=== PATIENT | female | born 1940 | race Caucasian/White ===

== ENCOUNTER 2024-05-05 14:45 | Observation (INO) | payer MEDICARE, BC, SELFPAY ==
[2024-05-05 14:48] VITALS: BP 138/91; PULSE 88; RESP 18; TEMP 36.1; O2SAT 95
--- OUTSIDE RECORDS SUMMARY | 2024-05-05 14:48 | XMS_ITS ---
Author Organization Unknown Address [address] [place] [address] Phone Care Team Providers Care [employer] Technology Manager Name Role Phone HIRA ROSARIO RN Registered Nurse Unavailable Unavailable Xwatchlist Unavailable NAIMA NICOLE Attending Unavailable JOSE G Aguilar [facility] Unavailable UNKNOWN Primary Unavailable Results TROPONIN HS QUANTITATIVE - C ollect Date/Time: 05/08/2022 04:04 [facility] H OS ID: [id number] [address], [place], [address] LOINC: Test Value Unit Reference Range Code Code System Flag TROPONIN HS 0.0098 ng/mL L=0.0000 H=0.0399 CMP - Collect Date/Time: 04:04 [facility] H OS ID: [id number] [address], [place], [address] LOINC: Test Value Unit Reference Range Code Code System Flag SODIUM 140 mmol/L L=137 H=145 POTASSIUM 3.5 mmol/L L=3.5 H=5.1 CHLORIDE 108 mmol/L L=98 H=107 H CO2 26 mmol/L L=22 H=30 ANION GAP 6 GLUCOSE 86 mg/dL L=74 H=100 BUN 15 mg/dL L=7 H=17 CREATININE 0.6100 mg/dL L=0.5200 H=1.0400 BUN/CREAT 25 TOTAL PROTEIN 6.3 g/dL L=6.3 H=8.2 ALBUMIN 3.9 g/dL L=3.5 H=5.0 GLOBULIN 2 g/dL L=2 H=5 L A/G RATIO 1.63 CALCIUM 8.6 mg/dL L=8.6 H=10.3 TOTAL BILI 0.4 mg/dL L=0.2 H=1.3 ALKALINE PHOS 43 U/L L=38 H=126 SGOT/AST 25 U/L L=14 H=36 SGPT/ALT 14 U/L L=0 H=35 AGE 81 yrs AFR AMER GFR 114 mL/min NON-AA GFR 94 mL/min CBC W/AUTO DIFF - Collect Da te/Time: 05/08/2022 04:04 [facility] H OS ID: [id number] [address], [place], [place], [address] LOINC: Test Value Unit Reference Range Code Code System Flag WBC 6.0 K/uL L=3.6 H=11.1 RBC 3.93 M/uL L=3.69 H=5.19 HEMOGLOBIN 13.4 g/dL L=11.4 H=14.4 HEMATOCRIT 38.7 % L=33.3 H=45.8 MCV 99 fL L=79 H=99 MCH 34.1 pg L=28.0 H=32.0 H MCHC 35 g/dL L=32 H=36 RDW 13.4 % L=11.5 H=14.5 PLATELETS 194 K/uL L=150 H=450 MPV 10.2 fL L=7.5 H=11.5 %NEUT 55 % L=35 H=75 %LYMPH 34 % L=15 H=49 %MONO 8 % L=3 H=14 %EOS 2 % L=0 H=5 %BASO 1 % L=0 H=1 #NEUT 3.3 K/uL L=2.0 H=8.0 #LYMPH 2.0 K/uL L=0.9 H=3.9 #MONO 0.5 K/uL L=0.1 H=2.0 #EOS 0.1 K/uL L=0.0 H=0.7 #BASO 0.0 K/uL L=0.0 H=0.2 MANUAL DIFF NOT INDICATED RBC MORPH NOT INDICATED SENT OUT ADDTNL TEST NO MAGNESIUM - Collect Date/Osmar e: 05/07/2022 13:26 [facility] H OS ID: [id number] [address], [place], [address] LOINC: Test Value Unit Reference Range Code Code System Flag MAGNESIUM 2.0 mg/dL L=1.6 H=2.3 PT/INR/PTT - Collect Date/Ti me: 05/07/2022 13:26 [facility] H OS ID: [id number] [address], [place], [address] LOINC: Test Value Unit Reference Range Code Code System Flag PROTIME 10.1 Secs L=9.0 H=11.2 INR 1.0 L=0.9 H=1.1 PTT 23.6 Secs L=22.0 H=30.0 TROPONIN HS QUANTITATIVE - C ollect Date/Time: 05/07/2022 13:26 [facility] H OS ID: [id number] [address], [place], [address] LOINC: Test Value Unit Reference Range Code Code System Flag TROPONIN HS 0.0074 ng/mL L=0.0000 H=0.0399 CBC W/AUTO DIFF - Collect Da te/Time: 05/07/2022 13:26 [facility] H OS ID: [id number] [address], [place], [address] LOINC: Test Value Unit Reference Range Code Code System Flag WBC 8.1 K/uL L=3.6 H=11.1 RBC 4.32 M/uL L=3.69 H=5.19 HEMOGLOBIN 14.6 g/dL L=11.4 H=14.4 H HEMATOCRIT 42.8 % L=33.3 H=45.8 MCV 99 fL L=79 H=99 MCH 33.8 pg L=28.0 H=32.0 H MCHC 34 g/dL L=32 H=36 RDW 13.3 % L=11.5 H=14.5 PLATELETS 217 K/uL L=150 H=450 MPV 10.4 fL L=7.5 H=11.5 %NEUT 79 % L=35 H=75 H %LYMPH 14 % L=15 H=49 L %MONO 6 % L=3 H=14 %EOS 0 % L=0 H=5 %BASO 0 % L=0 H=1 #NEUT 6.4 K/uL L=2.0 H=8.0 #LYMPH 1.1 K/uL L=0.9 H=3.9 #MONO 0.5 K/uL L=0.1 H=2.0 #EOS 0.0 K/uL L=0.0 H=0.7 #BASO 0.0 K/uL L=0.0 H=0.2 MANUAL DIFF NOT INDICATED RBC MORPH NOT INDICATED SENT OUT ADDTNL TEST NO CMP - Collect Date/Time: 13:26 [facility] OS ID: [id number] [address] , [place], [place], [address] LOINC: Test Value Unit Reference Range Code Code System Flag SODIUM 138 mmol/L L=137 H=145 POTASSIUM 4.0 mmol/L L=3.5 H=5.1 CHLORIDE 104 mmol/L L=98 H=107 CO2 27 mmol/L L=22 H=30 ANION GAP 7 GLUCOSE 95 mg/dL L=74 H=100 BUN 19 mg/dL L=7 H=17 H CREATININE 0.8000 mg/dL L=0.5200 H=1.0400 BUN/CREAT 24 TOTAL PROTEIN 7.4 g/dL L=6.3 H=8.2 ALBUMIN 4.6 g/dL L=3.5 H=5.0 GLOBULIN 3 g/dL L=2 H=5 A/G RATIO 1.64 CALCIUM 9.9 mg/dL L=8.6 H=10.3 TOTAL BILI 0.6 mg/dL L=0.2 H=1.3 ALKALINE PHOS 51 U/L L=38 H=126 SGOT/AST 27 U/L L=14 H=36 SGPT/ALT 15 U/L L=0 H=35 AGE 81 yrs AFR AMER GFR 83 mL/min NON-AA GFR 69 mL/min URINALYSIS W/REFLEX TO CULTU RE - Collect Date/Time: 05/07/2022 13:11 [facility] OS ID: [id number] [address] [place], [place], [address] LOINC: Test Value Unit Reference Range Code Code System Flag SOURCE CLEAN CATCH COLOR Yellow NORMAL: Straw CLARITY Slightly NORMAL: Clear GLUCOSE Negative NORMAL: Negative BILIRUBIN Negative NORMAL: Negative KETONE Trace NORMAL: Negative A SPEC GRAVITY 1.025 1.005 - 1.020 BLOOD Negative NORMAL: Negative pH 6.0 5.5 - 7.5 PROTEIN 30 NORMAL: Negative A UROBILINOGEN 0.2 0.2 - 1.0 mg/dL NITRITE Negative NORMAL: Negative LEUK EST Large NORMAL: Negative A MICROSCOPIC See Below WBC >50 NORMAL: <5 / HPF A RBC None Seen NORMAL: <2 / HPF EPITHELIAL 21 - 50 NORMAL: 1-5/ HPF BACTERIA FEW 1 - 5 NORMAL: NONE A CASTS None Seen CRYSTALS None Seen CULTURE? Sent Out CT HEAD WO CON - Completed: 05/07/2022 13:31 LOINC: \TM00\\12PI\\DRAo\\BM09\\PGN o\\MRB2\ \MRHo\ [facility] [address] [place] [address] ---------NAME--------- NUMBER SEX AGE ADMIT DISC. XRAY# F/C TYPE SUJEY FAGAN [id number] F 81 05/07/22 [id number] MB E/R DATE OF : 1940 M/R# [id number] PH#: [phone] ED-1 \MRHx\ LOCATION: TRANSCRIBED: 05/07/22 13:28 [place] [id number] COMPLETED:05/07/22 13:Feb {REASON FOR TEST: SYNCOPE PHYSICIAN: Emmanuel TORRES R A D I O L O G Y R E P O R T Radiation Dose CTDIVOL = 62.15 (mGy): DLP = 998.04 (mGy-cm) PROCEDURE INFORMATION: Exam: CT Head Without Contrast Exam date and time: 05/07/2022 1:28 PM Age: 81 years old Clinical indication: Injury or trauma; Fall; Concussion/head injury and unconscious; Consciousness not specified; Syncope and collapse; Additional info: Reason for test: Syncope TECHNIQUE: Imaging protocol: Computed tomography of the head without contrast. Radiation optimization: All CT scans at this facility use at least one of these dose optimization techniques: automated exposure control; mA and/or kV adjustment per patient size (includes targeted exams where dose is matched to clinical indication); or iterative reconstruction. COMPARISON: No relevant prior studies available. RADIATION DOSE METRICS: CTDI volume (mGy): 62.15 Total DLP (mGy-cm): 998.04 FINDINGS: Brain: No acute territorial infarct or intracranial hemorrhage. No mass effect or midline shift. Prominent right frontal encephalomalacia and volume loss is present. 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 Diffuse cerebral atrophy and advanced severe chronic small vessel ischemic change. Marked atherosclerotic calcification of the distal internal carotid and vertebral arteries. Cerebral ventricles: No ventriculomegaly. Paranasal sinuses: Visualized sinuses are unremarkable. No fluid levels. Mastoid air cells: Visualized mastoid air cells are well aerated. Bones/joints: No acute displaced fracture. Soft tissues: Mild left parietal scalp swelling and hematoma. IMPRESSION: No acute territorial infarct or intracranial hemorrhage detected. COMMENTS: If there is further clinical concern for intracranial pathology, MRI of the brain may be performed for further assessment. THIS DOCUMENT HAS BEEN ELECTRONICALLY SIGNED BY LUZ MARINA JARRETT MD ON 05/07/2022 14:44:27 \ITLo\ \UNDo\ \UNDx\ \ITLx\ XR CHEST 1V PORT - Completed : 05/07/2022 13:34 LOINC: \TM00\\12PI\\DRAo\\BM09\\PGN o\\MRB2\ \MRHo\ [facility] [address] [place] [address] ---------NAME--------- NUMBER SEX AGE ADMIT DISC. XRAY# F/C TYPE SUJEY FAGAN [id number] F 81 05/07/22 [id number] MB E/R DATE OF : 1940 M/R# [id number] PH#: [phone] ED-1 \MRHx\ LOCATION: TRANSCRIBED: 05/07/22 13:04 XR CHEST 1V PORT [id number] COMPLETED:05/07/22 13:Feb {REASON FOR CHEST: TRAUMA PHYSICIAN: Emmanuel TORRES R A D I O L O G Y R E P O R T PROCEDURE INFORMATION: Exam: XR Chest Exam date and time: 05/07/2022 1:04 PM Age: 81 years old Clinical indication: Injury or trauma; Other: Syncope/fall; Additional info: Reason for chest: Trauma TECHNIQUE: Imaging protocol: Radiologic exam of the chest. Views: 1 view. COMPARISON: No relevant prior studies available. FINDINGS: Lungs: The lungs are hyperexpanded and emphysematous. No gross consolidation. Pleural spaces: No significant pleural effusion. No significant pneumothorax. Heart/Mediastinum: Moderately enlarged cardiac silhouette. Vasculature is unremarkable. Tortuous atherosclerotic thoracic aorta. Bones/joints: No radiographically evident of displaced rib fracture. IMPRESSION: No acute cardiopulmonary process detected. THIS DOCUMENT HAS BEEN ELECTRONICALLY SIGNED BY LUZ MARINA JARRETT MD ON 05/07/2022 14:50:45 \ITLo\ \UNDo\ \UNDx\ \ITLx\ Social History Type Status Start Date End Date Code Code Syst em Smoking History Current every day smoker 01/31/[address] Sex Female Vital Signs Vital Sign Value Unit [place] Value [place] Unit Date/Time Recent/Initial? Code Code System Body Mass Index 18.02 kg/m2 05/07/2022 11:00 Initial 91545 -5 LOINC Systolic Blood Pressure 143 mm[Hg] 05/08/2022 12:54 Most Recent 8480- 6 LOINC Diastolic Blood Pressure 92 mm[Hg] 05/08/2022 12:54 Most Recent 8462- 4 LOINC Systolic Blood Pressure 138 mm[Hg] 05/07/2022 11:00 Initial 8480- 6 LOINC Diastolic Blood Pressure 87 mm[Hg] 05/07/2022 11:00 Initial 8462- 4 LOINC Body Surface Area 1.47 m2 05/07/2022 11:00 Initial 3140- 1 LOINC Height 162.560 0 cm 64.00 in 05/07/2022 11:00 Initial 8302- 2 LOINC O2 Saturation 96 % 2022 12:54 Most Recent 62644 -5 LOINC O2 Saturation 99 % 2022 11:00 Initial 61025 -5 LOINC Pulse 64.0 /min 05/08/2022 12:54 Most Recent 8867- 4 LOINC Pulse 68.0 /min 05/07/2022 11:00 Initial 8867- 4 LOINC Respiration 18 /min 05/08/19 12:54 Most Recent 9279- 1 LOINC Respiration 18 /min 05/07/19 11:00 Initial 9279- 1 LOINC Temperature 36.7 Latisha 98.0 F 05/08/19 12:54 Most Recent 8310- 5 LOINC Temperature 36.5 Latisha 97.7 F 05/07/19 11:00 Initial 8310- 5 LOINC Weight 47.63 kg 105.00 lbs 05/07/2022 11:00 Initial 17056 -7 [facility] Medications Medication Start Date End Date Route Frequency Dose Code Code System Medication Instructions Home Meds Acetaminophen 500MG Oral Capsule 05/08/2022 Unknown ORAL DAILY 1000 MILLIGRAMS 677103 RxNorm TAKE 1000 MILLIGRAMS ORAL DAILY Atorvastatin Calcium 20MG Oral Tablet 05/08/2022 Unknown ORAL AT BEDTIME 20 MILLIGRAMS 961298 RxNorm TAKE 20 MILLIGRAMS ORAL AT BEDTIME Cranberry 500MG Oral Capsule 05/08/2022 Unknown ORAL AT BEDTIME 500 MILLIGRAMS 6626404 RxNorm TAKE 500 MILLIGRAMS ORAL AT BEDTIME Docusate 100MG Oral Capsule, Liquid Filled 05/08/2022 Unknown ORAL TWICE A DAY 100 MILLIGRAMS 0207040 RxNorm TAKE 100 MILLIGRAMS ORAL TWICE A DAY Donepezil HCl 10MG Oral Tablet 05/08/2022 Unknown ORAL DAILY 10 MILLIGRAMS 600264 RxNorm TAKE 10 MILLIGRAMS ORAL DAILY Ibuprofen 200MG Oral Tablet 05/08/2022 Unknown ORAL AT BEDTIME 400 MILLIGRAMS 366276 RxNorm TAKE 400 MILLIGRAMS ORAL AT BEDTIME Lisinopril 10MG Oral Tablet 05/08/2022 Unknown ORAL DAILY 10 MILLIGRAMS 467550 RxNorm TAKE 10 MILLIGRAMS ORAL DAILY Mirtazapine 7.5MG Oral Tablet 05/08/2022 Unknown ORAL AT BEDTIME 7.5 MILLIGRAMS 036971 RxNorm TAKE 7.5 MILLIGRAMS ORAL AT BEDTIME Vitamin B12 1000MCG Oral Tablet 05/08/2022 Unknown ORAL DAILY 1000 MCG 951665 RxNorm TAKE 1000 MCG ORAL DAILY Vitamin C 1000MG Oral Tablet 05/08/2022 Unknown ORAL DAILY 1000 MILLIGRAMS 260803 RxNorm TAKE 1000 MILLIGRAMS ORAL DAILY Vitamin D3 10 MCG Oral Capsule, Liquid Filled 05/08/2022 Unknown ORAL DAILY 10 MCG RxNorm TAKE 10 MCG ORAL DAILY Cefuroxime 250MG Oral Tablet 05/08/2022 Unknown ORAL TWICE A DAY 2 TABLET 223159 RxNorm TAKE 2 TABLET ORAL TWICE A DAY Nitrofurantoin 100MG Oral Capsule 07/25/2022 Unknown ORAL EVERY 12 HOURS 1 CAPSULE 2216737 RxNorm TAKE 1 CAPSULE ORAL EVERY 12 HOURS Assessment You had the following problems:SYNCOPEUTICONTUSION OF HEAD, INITIAL ENCOUNTER Hospital Discharge Instructions Should you have any questions prior to discharge, please contact a member of your healthcare team. If you have left the hospital and have any questions, please contact your primary care physician. DIET:REGULAR DIET, Resume usual diet as tolerated. Prescriptions:Processed electronically, To pharmacy of choice: __. Discharge Diagnosis:UTI, Syncope Follow-Up Appointment:Primary Care Provider, establish appointment with urology/nephrology Post Discharge Equipment:Home oxygen, own cane General Activity:Up and about as tolerated. Lifting/Weight-Bearing:May lift as tolerated. Bathing:May shower. Sexual Activity:As tolerated. Notify Physician:Pain unrelieved by medication, Nausea and/or vomiting.Adverse reaction to medication, Questions/Uncertainty. Education:Diagnosis-related material: __, Given to and reviewed with patient.Given to and reviewed with family, Questions invited.Ques. answered to patient satisfaction, Understanding verbalized. Patient's Belongings:Cell phone: __, Purse: __, Clothing: __. Health Accessories:Dentures: upper plate, Dentures: lower plate, Glasses. Medical Equipment:cane Discharge Destination:Home with family/ spouse Mode of Departure:Wheelchair. Accompanied By:Spouse/Significant other. Departure Date:05/08/22 Pain Control Status/Pain Management:Adequate pain control. Departure Time:12:56 Reason For Referral No Data Found Problems Problem Start Date Resolved Date Status Code Code System SYNCOPE active 823424074 SNOMED-CT UTI active 87564471 SNOMED-CT CONTUSION OF HEAD, INITIAL ENCOUNTER active 587774672 SNOMED-CT HYPERTENSION 05/07/2022 resolved 97065123 SNOMED -CT URINARY TRACT INFECTION 05/07/2022 resolved 43903 005 SNOMED-CT Allergies and Adverse Reactions Allergy Substance Reaction Severity Start Date Concern Status Co de Code System No Known Drug Allergies Active 069459945 SNOMED-CT Plan of Treatment Plan Discharge home Referral to Urology & PCP local to [place] [facility] for Cefuroxime for further treatment Tylenol/Acetaminophen as needed for headache Urine culture pending Continue home meds Normal diet Return for any new or worsening symptoms Medications given this visit: Ordered & Completed Meds Table Ordered Medication Start Date/Time Dosage Route Frequency Status CEFTRIAXONE 1GM INJ 05/07/2022 13:49 1 GM IV PUSH X1 completed SODIUM CHLORIDE 0.9% 500ML IV SOLN 05/07/2022 13:50 INTRAVENOUS X1 completed ONDANSETRON ODT 4MG TAB 05/07/2022 14:20 4 MG ORAL PRN Q6H active ACETAMINOPHEN 325MG TAB 05/07/2022 14:20 650 MG ORAL PRN Q6H active NS 1,000 ML IV SOLN 05/07/2022 14:20 75 ml/hr INTRAVENOUS CONTINUOUS active CEFTRIAXONE 1GM INJ 05/08/2022 09:00 1 GM IV PUSH Q12HR active LISINOPRIL 10MG TAB 05/07/2022 19:07 10 MG ORAL DAILY completed DONEPEZIL HCL 5MG TAB 05/07/2022 19:07 10 MG ORAL DAILY active DOCUSATE SODIUM 100MG CAP 05/07/2022 19:07 100 MG ORAL BID active MIRTAZAPINE 15MG TAB 05/07/2022 19:07 7.5 MG ORAL Q24H active ATORVASTATIN 10MG TAB 05/07/2022 19:07 20 MG ORAL BEDTIME active LISINOPRIL 10MG TAB 05/08/2022 08:00 10 MG ORAL DAILY active Discharge Medications: Discharge Medications Acetaminophen 500MG Oral Capsule Atorvastatin Calcium 20MG Oral Tablet Cranberry 500MG Oral Capsule Docusate 100MG Oral Capsule, Liquid Filled Donepezil HCl 10MG Oral Tablet Ibuprofen 200MG Oral Tablet Lisinopril 10MG Oral Tablet Mirtazapine 7.5MG Oral Tablet Vitamin B12 1000MCG Oral Tablet Vitamin C 1000MG Oral Tablet Vitamin D3 10 MCG Oral Capsule, Liquid Filled Cefuroxime 250MG Oral Tablet Personal Care Team Section Performer Name Performer Role Active Date Inactive Da te Discharge Summary Notes [facility] OS 05/08/2022 12:39 All Demographics Patient Name Age Sex Visit Number Admission Date/Time Attending Physician Date of Service Room and Bed Emergency Contact GRACIA RM 1940 81 years Female [id number] 05/07/2022 14:50 EDWARD Bahman [place] 05/07/2022 5 AMRIT RM - [id number] 05/08/2022 12:34 Discharge Date: 05/08/22 Reason for Admission: UTI, syncope Final Diagnosis: UTI Problem List Syncope UTI Contusion of head, initial encounter Attending Physician: Dr. Jalen Dumont Primary Care Physician: Primary Care Physician: UNKNOWN History of Present Illness This patient is an 81 year old female who presented to the ED post syncopal episode. Patient has a history of asymptomatic UTIs that manifest as syncopal episodes, last one was 2 months ago while in [place], patient's home. Patient has been unable to see a urologist. She currently is asymptomatic, requesting to go home. Denies any headache, weakness, blurred vision, dizziness, chest pain, dyspnea, nausea, vomiting. Hospital Course CT head - unremarkable for acute findings Labs - leukocytes & WBCs on UA, otherwise unremarkable Pt given IV rocephin, fluids, and normal diet Patient repeat labs in the AM unremarkable, patient afebrile, nontoxic appearing with normal vitals other than slightly elevated BP Stable for DC at this time Lab Results: This Visit Test Results Units Reference Range Ordered Collected Status WBC 6 K/uL L=3.6 H=11.1 05/08/2022 00:00 05/08/2022 04:04 final RBC 3.93 M/uL L=3.69 H=5.19 05/08/2022 00:00 05/08/2022 04:04 final HEMOGLOBIN 13.4 g/dL L=11.4 H=14.4 05/08/2022 00:00 05/08/2022 04:04 final HEMATOCRIT 38.7 % L=33.3 H=45.8 05/08/2022 00:00 05/08/2022 04:04 final MCV 99 fL L=79 H=99 05/08/2022 00:00 05/08/2022 04:04 final MCH 34.1 H pg L=28.0 H=32.0 05/08/2022 00:00 05/08/2022 04:04 final MCHC 35 g/dL L=32 H=36 05/08/2022 00:00 05/08/2022 04:04 final RDW 13.4 % L=11.5 H=14.5 05/08/2022 00:00 05/08/2022 04:04 final PLATELETS 194 K/uL L=150 H=450 05/08/2022 00:00 05/08/2022 04:04 final MPV 10.2 fL L=7.5 H=11.5 05/08/2022 00:00 05/08/2022 04:04 final %NEUT 55 % L=35 H=75 05/08/2022 00:00 05/08/2022 04:04 final %LYMPH 34 % L=15 H=49 05/08/2022 00:00 05/08/2022 04:04 final %MONO 8 % L=3 H=14 05/08/2022 00:00 05/08/2022 04:04 final %EOS 2 % L=0 H=5 05/08/2022 00:00 05/08/2022 04:04 final %BASO 1 % L=0 H=1 05/08/2022 00:00 05/08/2022 04:04 final #NEUT 3.3 K/uL L=2.0 H=8.0 05/08/2022 00:00 05/08/2022 04:04 final #LYMPH 2 K/uL L=0.9 H=3.9 05/08/2022 00:00 05/08/2022 04:04 final #MONO 0.5 K/uL L=0.1 H=2.0 05/08/2022 00:00 05/08/2022 04:04 final #EOS 0.1 K/uL L=0.0 H=0.7 05/08/2022 00:00 05/08/2022 04:04 final #BASO 0 K/uL L=0.0 H=0.2 05/08/2022 00:00 05/08/2022 04:04 final MANUAL DIFF NOT INDICATED 05/08/2022 00:00 05/08/2022 04:04 final RBC MORPH NOT INDICATED 05/08/2022 00:00 05/08/2022 04:04 final SENT OUT ADDTNL TEST NO 05/08/2022 00:00 05/08/2022 04:04 final SODIUM 140 mmol/L L=137 H=145 05/08/2022 00:00 05/08/2022 04:04 final POTASSIUM 3.5 mmol/L L=3.5 H=5.1 05/08/2022 00:00 05/08/2022 04:04 final CHLORIDE 108 H mmol/L L=98 H=107 05/08/2022 00:00 05/08/2022 04:04 final CO2 26 mmol/L L=22 H=30 05/08/2022 00:00 05/08/2022 04:04 final ANION GAP 6 05/08/2022 00:00 05/08/2022 04:04 final GLUCOSE 86 mg/dL L=74 H=100 05/08/2022 00:00 05/08/2022 04:04 final BUN 15 mg/dL L=7 H=17 05/08/2022 00:00 05/08/2022 04:04 final CREATININE 0.61 mg/dL L=0.5200 H=1.0400 05/08/2022 00:00 05/08/2022 04:04 final BUN/CREAT 25 05/08/2022 00:00 05/08/2022 04:04 final TOTAL PROTEIN 6.3 g/dL L=6.3 H=8.2 05/08/2022 00:00 05/08/2022 04:04 final ALBUMIN 3.9 g/dL L=3.5 H=5.0 05/08/2022 00:00 05/08/2022 04:04 final GLOBULIN 2 L g/dL L=2 H=5 05/08/2022 00:00 05/08/2022 04:04 final A/G RATIO 1.63 05/08/2022 00:00 05/08/2022 04:04 final CALCIUM 8.6 mg/dL L=8.6 H=10.3 05/08/2022 00:00 05/08/2022 04:04 final TOTAL BILI 0.4 mg/dL L=0.2 H=1.3 05/08/2022 00:00 05/08/2022 04:04 final ALKALINE PHOS 43 U/L L=38 H=126 05/08/2022 00:00 05/08/2022 04:04 final SGOT/AST 25 U/L L=14 H=36 05/08/2022 00:00 05/08/2022 04:04 final SGPT/ALT 14 U/L L=0 H=35 05/08/2022 00:00 05/08/2022 04:04 final AGE 81 yrs 05/08/2022 00:00 05/08/2022 04:04 final AFR AMER GFR 114 mL/min 05/08/2022 00:00 05/08/2022 04:04 final NON-AA GFR 94 mL/min 05/08/2022 00:00 05/08/2022 04:04 final TROPONIN HS 0.0098 ng/mL L=0.0000 H=0.0399 05/08/2022 00:00 05/08/2022 04:04 final WBC 8.1 K/uL L=3.6 H=11.1 05/07/2022 12:52 05/07/2022 13:26 final RBC 4.32 M/uL L=3.69 H=5.19 05/07/2022 12:52 05/07/2022 13:26 final HEMOGLOBIN 14.6 H g/dL L=11.4 H=14.4 05/07/2022 12:52 05/07/2022 13:26 final HEMATOCRIT 42.8 % L=33.3 H=45.8 05/07/2022 12:52 05/07/2022 13:26 final MCV 99 fL L=79 H=99 05/07/2022 12:52 05/07/2022 13:26 final MCH 33.8 H pg L=28.0 H=32.0 05/07/2022 12:52 05/07/2022 13:26 final MCHC 34 g/dL L=32 H=36 05/07/2022 12:52 05/07/2022 13:26 final RDW 13.3 % L=11.5 H=14.5 05/07/2022 12:52 05/07/2022 13:26 final PLATELETS 217 K/uL L=150 H=450 05/07/2022 12:52 05/07/2022 13:26 final MPV 10.4 fL L=7.5 H=11.5 05/07/2022 12:52 05/07/2022 13:26 final %NEUT 79 H % L=35 H=75 05/07/2022 12:52 05/07/2022 13:26 final %LYMPH 14 L % L=15 H=49 05/07/2022 12:52 05/07/2022 13:26 final %MONO 6 % L=3 H=14 05/07/2022 12:52 05/07/2022 13:26 final %EOS 0 % L=0 H=5 05/07/2022 12:52 05/07/2022 13:26 final %BASO 0 % L=0 H=1 05/07/2022 12:52 05/07/2022 13:26 final #NEUT 6.4 K/uL L=2.0 H=8.0 05/07/2022 12:52 05/07/2022 13:26 final #LYMPH 1.1 K/uL L=0.9 H=3.9 05/07/2022 12:52 05/07/2022 13:26 final #MONO 0.5 K/uL L=0.1 H=2.0 05/07/2022 12:52 05/07/2022 13:26 final #EOS 0 K/uL L=0.0 H=0.7 05/07/2022 12:52 05/07/2022 13:26 final #BASO 0 K/uL L=0.0 H=0.2 05/07/2022 12:52 05/07/2022 13:26 final MANUAL DIFF NOT INDICATED 05/07/2022 12:52 05/07/2022 13:26 final RBC MORPH NOT INDICATED 05/07/2022 12:52 05/07/2022 13:26 final SENT OUT ADDTNL TEST NO 05/07/2022 12:52 05/07/2022 13:26 final SODIUM 138 mmol/L L=137 H=145 05/07/2022 12:52 05/07/2022 13:26 final POTASSIUM 4 mmol/L L=3.5 H=5.1 05/07/2022 12:52 05/07/2022 13:26 final CHLORIDE 104 mmol/L L=98 H=107 05/07/2022 12:52 05/07/2022 13:26 final CO2 27 mmol/L L=22 H=30 05/07/2022 12:52 05/07/2022 13:26 final ANION GAP 7 05/07/2022 12:52 05/07/2022 13:26 final GLUCOSE 95 mg/dL L=74 H=100 05/07/2022 12:52 05/07/2022 13:26 final BUN 19 H mg/dL L=7 H=17 05/07/2022 12:52 05/07/2022 13:26 final CREATININE 0.8 mg/dL L=0.5200 H=1.0400 05/07/2022 12:52 05/07/2022 13:26 final BUN/CREAT 24 05/07/2022 12:52 05/07/2022 13:26 final TOTAL PROTEIN 7.4 g/dL L=6.3 H=8.2 05/07/2022 12:52 05/07/2022 13:26 final ALBUMIN 4.6 g/dL L=3.5 H=5.0 05/07/2022 12:52 05/07/2022 13:26 final GLOBULIN 3 g/dL L=2 H=5 05/07/2022 12:52 05/07/2022 13:26 final A/G RATIO 1.64 05/07/2022 12:52 05/07/2022 13:26 final CALCIUM 9.9 mg/dL L=8.6 H=10.3 05/07/2022 12:52 05/07/2022 13:26 final TOTAL BILI 0.6 mg/dL L=0.2 H=1.3 05/07/2022 12:52 05/07/2022 13:26 final ALKALINE PHOS 51 U/L L=38 H=126 05/07/2022 12:52 05/07/2022 13:26 final SGOT/AST 27 U/L L=14 H=36 05/07/2022 12:52 05/07/2022 13:26 final SGPT/ALT 15 U/L L=0 H=35 05/07/2022 12:52 05/07/2022 13:26 final AGE 81 yrs 05/07/2022 12:52 05/07/2022 13:26 final AFR AMER GFR 83 mL/min 05/07/2022 12:52 05/07/2022 13:26 final NON-AA GFR 69 mL/min 05/07/2022 12:52 05/07/2022 13:26 final MAGNESIUM 2 mg/dL L=1.6 H=2.3 05/07/2022 12:52 05/07/2022 13:26 final PROTIME 10.1 Secs L=9.0 H=11.2 05/07/2022 12:52 05/07/2022 13:26 final INR 1 L=0.9 H=1.1 05/07/2022 12:52 05/07/2022 13:26 final PTT 23.6 Secs L=22.0 H=30.0 05/07/2022 12:52 05/07/2022 13:26 final TROPONIN HS 0.0074 ng/mL L=0.0000 H=0.0399 05/07/2022 12:52 05/07/2022 13:26 final CULTURE, URINE (SEND OUT) 05/07/2022 12:52 05/07/2022 13:11 registered SOURCE CLEAN CATCH 05/07/2022 12:52 05/07/2022 13:11 final COLOR Yellow NORMAL: Straw 05/07/2022 12:52 05/07/2022 13:11 final CLARITY Slightly NORMAL: Clear 05/07/2022 12:52 05/07/2022 13:11 final GLUCOSE Negative NORMAL: Negative 05/07/2022 12:52 05/07/2022 13:11 final BILIRUBIN Negative NORMAL: Negative 05/07/2022 12:52 05/07/2022 13:11 final KETONE Trace A NORMAL: Negative 05/07/2022 12:52 05/07/2022 13:11 final SPEC GRAVITY 1.025 1.005 - 1.020 05/07/2022 12:52 05/07/2022 13:11 final BLOOD Negative NORMAL: Negative 05/07/2022 12:52 05/07/2022 13:11 final pH 6.0 5.5 - 7.5 05/07/2022 12:52 05/07/2022 13:11 final PROTEIN 30 A NORMAL: Negative 05/07/2022 12:52 05/07/2022 13:11 final UROBILINOGEN 0.2 0.2 - 1.0 mg/dL 05/07/2022 12:52 05/07/2022 13:11 final NITRITE Negative NORMAL: Negative 05/07/2022 12:52 05/07/2022 13:11 final LEUK EST Large A NORMAL: Negative 05/07/2022 12:52 05/07/2022 13:11 final MICROSCOPIC See Below 05/07/2022 12:52 05/07/2022 13:11 final WBC >50 A NORMAL: <5 / HPF 05/07/2022 12:52 05/07/2022 13:11 final RBC None Seen NORMAL: <2 / HPF 05/07/2022 12:52 05/07/2022 13:11 final EPITHELIAL 21 - 50 NORMAL: 1-5/ HPF 05/07/2022 12:52 05/07/2022 13:11 final BACTERIA FEW 1 - 5 A NORMAL: NONE 05/07/2022 12:52 05/07/2022 13:11 final CASTS None Seen 05/07/2022 12:52 05/07/2022 13:11 final CRYSTALS None Seen 05/07/2022 12:52 05/07/2022 13:11 final CULTURE? Sent Out 05/07/2022 12:52 05/07/2022 13:11 final Assessment Problem List Syncope UTI Contusion of head, initial encounter Plan Discharge home Referral to Urology & PCP local to [place] Prescription for Cefuroxime for further treatment Tylenol/Acetaminophen as needed for headache Urine culture pending Continue home meds Normal diet Return for any new or worsening symptoms Medications given this visit: Ordered & Completed Meds Table Ordered Medication Start Date/Time Dosage Route Frequency Status CEFTRIAXONE 1GM INJ 05/07/2022 13:49 1 GM IV PUSH X1 completed SODIUM CHLORIDE 0.9% 500ML IV SOLN 05/07/2022 13:50 INTRAVENOUS X1 completed ONDANSETRON ODT 4MG TAB 05/07/2022 14:20 4 MG ORAL PRN Q6H active ACETAMINOPHEN 325MG TAB 05/07/2022 14:20 650 MG ORAL PRN Q6H active NS 1,000 ML IV SOLN 05/07/2022 14:20 75 ml/hr INTRAVENOUS CONTINUOUS active CEFTRIAXONE 1GM INJ 05/08/2022 09:00 1 GM IV PUSH Q12HR active LISINOPRIL 10MG TAB 05/07/2022 19:07 10 MG ORAL DAILY completed DONEPEZIL HCL 5MG TAB 05/07/2022 19:07 10 MG ORAL DAILY active DOCUSATE SODIUM 100MG CAP 05/07/2022 19:07 100 MG ORAL BID active MIRTAZAPINE 15MG TAB 05/07/2022 19:07 7.5 MG ORAL Q24H active ATORVASTATIN 10MG TAB 05/07/2022 19:07 20 MG ORAL BEDTIME active LISINOPRIL 10MG TAB 05/08/2022 08:00 10 MG ORAL DAILY active Discharge Medications: Discharge Medications Acetaminophen 500MG Oral Capsule Atorvastatin Calcium 20MG Oral Tablet Cranberry 500MG Oral Capsule Docusate 100MG Oral Capsule, Liquid Filled Donepezil HCl 10MG Oral Tablet Ibuprofen 200MG Oral Tablet Lisinopril 10MG Oral Tablet Mirtazapine 7.5MG Oral Tablet Vitamin B12 1000MCG Oral Tablet Vitamin C 1000MG Oral Tablet Vitamin D3 10 MCG Oral Capsule, Liquid Filled Cefuroxime 250MG Oral Tablet History and Physical Notes [facility] OS 05/07/2022 14:29 All Demographics Patient Name Age Sex Visit Number Admission Date/Time Attending Physician Date of Service Room and Bed Emergency Contact GRACIA RM 1940 81 years Female [id number] 05/07/2022 10:55 BONNIE MCNAMARA 05/07/2022 ED-1 AMRIT RM - [id number] 05/07/2022 14:25 Admission Date: Date of Service: 05/07/2022 Reason for Admission: Chief Complaint: FALL Code Status: full Attending Physician: Dr. JR Dumont Primary Care Physician: Primary Care Physician: UNKNOWN Referring Physician: Consulting Physician(s): History of Present Illness Chief Complaint: Chief Complaint: FALL patient was seen in the ED and admitted for observation due to her syncopal episode and head contusion and UTI Chief Complaint: Syncope patient is 81-year-old female who presents to the emergency department after a syncopal episode. She is here with her who states that he was making the bed and she went into the bathroom and he suddenly heard her fall. Patient remembers going to the bathroom and then walking over to the sink to wash her hands and next thing she knew her was helping her sit up from the floor. Her states that he went straight into the bathroom when he heard her fall and she was only passed out for a couple of seconds and then woke up. She had a sore spot on the back of her head and he gave her 200 mg of ibuprofen. She denies any history of syncopal episodes. She does not remember actually passing out. She states she has a sore spot still but no severe headache. She denies any change in vision, nausea or vomiting. She is not been sick recently with any fevers, chills, or URI symptoms. She denies any chest pains or shortness of breath. She denies any nausea, vomiting, or diarrhea. She states she is had chronic fatigue and some leg weakness for years but nothing out of her normal today. She denies any focal weakness or paresthesias. She denies any loss of sensation or movement. She denies any tobacco, alcohol, or recreational drug use Past Medical/Surgical/Family/Social History Past Medical History: All Problems Problem ICD Code Onset Date Resolved Date Age Status Comment Hypertension I10 05/07/2022 Historic Syncope R55 Active UTI N39.0 Active Contusion of head, initial encounter S00.93XA Active Past Surgical History: Surgery List: No Surgical History Available Past Family History: Family History List: No Family History Available Past Social History: lives with her . No tobacco, alcohol, or recreational drug use Smoking Status: Smoking Status List: No Social History Available Allergies: Allergy List No Known Drug Allergies, medication Current Medications: Home Meds: Dose and Freq: No Home Medications Available Review of Systems Pertinent Positives: syncopal episode and hit the back of her head Pertinent Negatives: nausea, vomiting, confusion, focal weakness, chest pain, shortness of breath, fever or chills Physical Exam Most Recent Vital Signs BP (mm/Hg) BP Position/Site Heart Rate Resp Temp (C) Temp (F) SPO2% O2 Device Pain Score Height (cm) Height (in) Weight (kg) Weight (lbs/ozs) 164/66 67 18 36.5 Temporal Scanning 97.7 Temporal Scanning 99 % 4 162.6 cm 64 in 47.63 kg 105 lbs GENERAL: elderly and frail. Very thin. In no apparent distress. SKIN: No rashes. No jaundice. [place] and warm with good turgor. No petechia, bulla or ecchymosis. HEAD: Normocephalic, atraumatic, with no visible or palpable masses, depressions, or scarring. posterior left scalp with a tender hematoma. No open wound or active bleeding. No deformity or crepitus EYES: Pupils are equal, round and reactive to light. Extraocular muscles are intact. Sclerae are white without injection or icterus. EARS: The ear canals are patent without edema, exudate or drainage. Tympanic membranes are intact. No bulging or erythema. Hearing is grossly intact. NOSE: No external lesions. Nasal mucosa pink and non-inflamed. MOUTH/THROAT: No swelling or abnormality to the lip or teeth. Oral mucosa is pink and moist. No swelling to the palate or pharynx. Uvula is midline. The pharynx is without exudate or erythema. No edema is seen of the tonsils. The airway is completely patent. The voice is normal. No stridor is heard. NECK: Supple, without lesions, bruits, or adenopathy. No JVD is seen. Thyroid is non-enlarged and non-tender. Trachea is midline. CHEST/LUNGS: Symmetrical with equal breath sounds. Clear to auscultation bilaterally. No rales, rhonchi or wheezes are appreciated. Good air movement is auscultated in all 4 lung kent. There is no tenderness on palpation of the chest. HEART: Regular rate and rhythm. No murmurs, rubs or gallop. No S3, S4 or rub is auscultated. ABDOMEN: Soft, non-tender and non-distended. Normal bowel sounds. No hepatosplenomegaly or hernias or masses noted. No guarding, rigidity or rebound tenderness. MUSCULOSKELETAL: Normal gait and station. No misalignment, asymmetry, crepitation, defects, tenderness, masses, effusions, decreased range of motion, instability, atrophy or abnormal strength or tone EXTREMITIES: Peripheral pulses are intact. All joints are stable without laxity. There is good range of motion of all joints without tenderness or discomfort NEUROLOGIC: Cranial nerves II through XII are grossly intact. Muscle strength is graded 5/5 in the upper and lower extremities bilaterally. Deep tendon reflexes are symmetrical in the upper and lower extremities bilaterally. Sensation to pain, touch, and proprioception are normal. PSYCHIATRIC: The patient is oriented x4. Mood and affect are appropriate. Pre-Admission Studies: Lab Results: Last Week Test Results Units Reference Range Ordered Collected Status WBC 8.1 K/uL L=3.6 H=11.1 05/07/2022 12:52 05/07/2022 13:26 final RBC 4.32 M/uL L=3.69 H=5.19 05/07/2022 12:52 05/07/2022 13:26 final HEMOGLOBIN 14.6 H g/dL L=11.4 H=14.4 05/07/2022 12:52 05/07/2022 13:26 final HEMATOCRIT 42.8 % L=33.3 H=45.8 05/07/2022 12:52 05/07/2022 13:26 final MCV 99 fL L=79 H=99 05/07/2022 12:52 05/07/2022 13:26 final MCH 33.8 H pg L=28.0 H=32.0 05/07/2022 12:52 05/07/2022 13:26 final MCHC 34 g/dL L=32 H=36 05/07/2022 12:52 05/07/2022 13:26 final RDW 13.3 % L=11.5 H=14.5 05/07/2022 12:52 05/07/2022 13:26 final PLATELETS 217 K/uL L=150 H=450 05/07/2022 12:52 05/07/2022 13:26 final MPV 10.4 fL L=7.5 H=11.5 05/07/2022 12:52 05/07/2022 13:26 final %NEUT 79 H % L=35 H=75 05/07/2022 12:52 05/07/2022 13:26 final %LYMPH 14 L % L=15 H=49 05/07/2022 12:52 05/07/2022 13:26 final %MONO 6 % L=3 H=14 05/07/2022 12:52 05/07/2022 13:26 final %EOS 0 % L=0 H=5 05/07/2022 12:52 05/07/2022 13:26 final %BASO 0 % L=0 H=1 05/07/2022 12:52 05/07/2022 13:26 final #NEUT 6.4 K/uL L=2.0 H=8.0 05/07/2022 12:52 05/07/2022 13:26 final #LYMPH 1.1 K/uL L=0.9 H=3.9 05/07/2022 12:52 05/07/2022 13:26 final #MONO 0.5 K/uL L=0.1 H=2.0 05/07/2022 12:52 05/07/2022 13:26 final #EOS 0 K/uL L=0.0 H=0.7 05/07/2022 12:52 05/07/2022 13:26 final #BASO 0 K/uL L=0.0 H=0.2 05/07/2022 12:52 05/07/2022 13:26 final MANUAL DIFF NOT INDICATED 05/07/2022 12:52 05/07/2022 13:26 final RBC MORPH NOT INDICATED 05/07/2022 12:52 05/07/2022 13:26 final SENT OUT ADDTNL TEST NO 05/07/2022 12:52 05/07/2022 13:26 final SODIUM 138 mmol/L L=137 H=145 05/07/2022 12:52 05/07/2022 13:26 final POTASSIUM 4 mmol/L L=3.5 H=5.1 05/07/2022 12:52 05/07/2022 13:26 final CHLORIDE 104 mmol/L L=98 H=107 05/07/2022 12:52 05/07/2022 13:26 final CO2 27 mmol/L L=22 H=30 05/07/2022 12:52 05/07/2022 13:26 final ANION GAP 7 05/07/2022 12:52 05/07/2022 13:26 final GLUCOSE 95 mg/dL L=74 H=100 05/07/2022 12:52 05/07/2022 13:26 final BUN 19 H mg/dL L=7 H=17 05/07/2022 12:52 05/07/2022 13:26 final CREATININE 0.8 mg/dL L=0.5200 H=1.0400 05/07/2022 12:52 05/07/2022 13:26 final BUN/CREAT 24 05/07/2022 12:52 05/07/2022 13:26 final TOTAL PROTEIN 7.4 g/dL L=6.3 H=8.2 05/07/2022 12:52 05/07/2022 13:26 final ALBUMIN 4.6 g/dL L=3.5 H=5.0 05/07/2022 12:52 05/07/2022 13:26 final GLOBULIN 3 g/dL L=2 H=5 05/07/2022 12:52 05/07/2022 13:26 final A/G RATIO 1.64 05/07/2022 12:52 05/07/2022 13:26 final CALCIUM 9.9 mg/dL L=8.6 H=10.3 05/07/2022 12:52 05/07/2022 13:26 final TOTAL BILI 0.6 mg/dL L=0.2 H=1.3 05/07/2022 12:52 05/07/2022 13:26 final ALKALINE PHOS 51 U/L L=38 H=126 05/07/2022 12:52 05/07/2022 13:26 final SGOT/AST 27 U/L L=14 H=36 05/07/2022 12:52 05/07/2022 13:26 final SGPT/ALT 15 U/L L=0 H=35 05/07/2022 12:52 05/07/2022 13:26 final AGE 81 yrs 05/07/2022 12:52 05/07/2022 13:26 final AFR AMER GFR 83 mL/min 05/07/2022 12:52 05/07/2022 13:26 final NON-AA GFR 69 mL/min 05/07/2022 12:52 05/07/2022 13:26 final MAGNESIUM 2 mg/dL L=1.6 H=2.3 05/07/2022 12:52 05/07/2022 13:26 final PT/INR/PTT 05/07/2022 12:52 05/07/2022 13:26 registered TROPONIN HS 0.0074 ng/mL L=0.0000 H=0.0399 05/07/2022 12:52 05/07/2022 13:26 final CULTURE, URINE (SEND OUT) 05/07/2022 12:52 05/07/2022 13:11 registered SOURCE CLEAN CATCH 05/07/2022 12:52 05/07/2022 13:11 final COLOR Yellow NORMAL: Straw 05/07/2022 12:52 05/07/2022 13:11 final CLARITY Slightly NORMAL: Clear 05/07/2022 12:52 05/07/2022 13:11 final GLUCOSE Negative NORMAL: Negative 05/07/2022 12:52 05/07/2022 13:11 final BILIRUBIN Negative NORMAL: Negative 05/07/2022 12:52 05/07/2022 13:11 final KETONE Trace A NORMAL: Negative 05/07/2022 12:52 05/07/2022 13:11 final SPEC GRAVITY 1.025 1.005 - 1.020 05/07/2022 12:52 05/07/2022 13:11 final BLOOD Negative NORMAL: Negative 05/07/2022 12:52 05/07/2022 13:11 final pH 6.0 5.5 - 7.5 05/07/2022 12:52 05/07/2022 13:11 final PROTEIN 30 A NORMAL: Negative 05/07/2022 12:52 05/07/2022 13:11 final UROBILINOGEN 0.2 0.2 - 1.0 mg/dL 05/07/2022 12:52 05/07/2022 13:11 final NITRITE Negative NORMAL: Negative 05/07/2022 12:52 05/07/2022 13:11 final LEUK EST Large A NORMAL: Negative 05/07/2022 12:52 05/07/2022 13:11 final MICROSCOPIC See Below 05/07/2022 12:52 05/07/2022 13:11 final WBC >50 A NORMAL: <5 / HPF 05/07/2022 12:52 05/07/2022 13:11 final RBC None Seen NORMAL: <2 / HPF 05/07/2022 12:52 05/07/2022 13:11 final EPITHELIAL 21 - 50 NORMAL: 1-5/ HPF 05/07/2022 12:52 05/07/2022 13:11 final BACTERIA FEW 1 - 5 A NORMAL: NONE 05/07/2022 12:52 05/07/2022 13:11 final CASTS None Seen 05/07/2022 12:52 05/07/2022 13:11 final CRYSTALS None Seen 05/07/2022 12:52 05/07/2022 13:11 final CULTURE? Sent Out 05/07/2022 12:52 05/07/2022 13:11 final Assessment Problem List Syncope UTI Contusion of head, initial encounter Plan admit to observation IV Rocephin continue home meds plan for DC tomorrow with oral antibiotics Ordered Meds List ONDANSETRON ODT 4MG TAB, PRN Q6H ACETAMINOPHEN 325MG TAB, PRN Q6H NS 1,000 ML IV SOLN, CONTINUOUS Progress Notes [facility] OS 05/08/2022 12:33 All Demographics Patient Name Age Sex Visit Number Admission Date/Time Attending Physician Date of Service Room and Bed Emergency Contact ANNEMARIEDEBORAH LaneNA 1940 81 years Female [id number] 05/07/2022 14:50 EDIVAN MCNAMARA 05/07/2022 5 AMRIT RM - [id number] 05/08/2022 12:33 Admission date: 05/07/22 Diagnosis: Syncope, UTI Subjective This patient is an 81 year old female who presented to the ED initially post syncopal episode, diagnosed with UTI and started on antibiotics. Today, patient reports no symptoms other than occasional headache at the location of her head trauma from the fall. She denies any dizziness, light-headedness, blurred vision, weakness, or confusion. Per , she regularly gets these syncopal episodes when she gets UTIs, her last one was 2 months ago. They live in [place] and have no PCP/urologists here in [place]. Patient would like to go home, agrees to look after her and get her good follow up. Objective Physical Exam GENERAL: Well appearing and well nourished, in no apparent distress. CHEST/LUNGS: Symmetrical with equal breath sounds. Clear to auscultation bilaterally. No rales, rhonchi or wheezes are appreciated. Good air movement is auscultated in all 4 lung kent. There is no tenderness on palpation of the chest. HEART: Regular rate and rhythm. No murmurs, rubs or gallop. No S3, S4 or rub is auscultated. ABDOMEN: Soft, non- tender and non-distended. Normal bowel sounds. No hepatosplenomegaly or hernias or masses noted. No guarding, rigidity or rebound tenderness. Abdominal aorta is not palpable. MUSCULOSKELETAL: Normal gait and station. No misalignment, asymmetry, crepitation, defects, tenderness, masses, effusions, decreased range of motion, instability, atrophy or abnormal strength or tone in the head, neck, spine, ribs, pelvis or extremities. NEUROLOGIC: Cranial nerves II through XII are grossly intact. Muscle strength is graded 5/5 in the upper and lower extremities bilaterally. Deep tendon reflexes are symmetrical in the upper and lower extremities bilaterally. Sensation to pain, touch, and proprioception are normal. Vital Signs: Last 24 Hours Date/Time BP (mm/Hg) BP Position/Site Heart Rate Resp Temp (C) Temp (F) SPO2% O2 Device Blood Sugar (mg/dL) Pain Score Weight (kg) Weight (lbs/ozs) 05/08/2022 11:37 161/89 Lying/Right Arm 63 16 36.8 Temporal Scanning 98.3 Temporal Scanning 97 % Room Air 21% 05/08/2022 07:40 151/99 Sitting/Right Arm 69 17 36.8 Temporal Scanning 98.3 Temporal Scanning 98 % Room Air 21% 05/08/2022 04:12 134/85 Lying/Right Arm 72 18 36.3 Temporal Scanning 97.4 Temporal Scanning 96 % Partial Rebreathing Mask 0 05/07/2022 23:51 170/90 Lying/Left Arm 60 20 36.9 Temporal Scanning 98.4 Temporal Scanning 97 % Room Air 21% 0 05/07/2022 19:42 159/86 Lying/Right Arm 63 20 36.5 Temporal Scanning 97.7 Temporal Scanning 97 % Room Air 21% 0 05/07/2022 17:39 182/92 Lying/Right Arm 60 18 36.8 Temporal Scanning 98.3 Temporal Scanning 96 % Room Air 21% 05/07/2022 14:50 180/95 Sitting/Right Arm 58 18 36.3 Temporal 97.4 Temporal 96 % Room Air 21% 05/07/2022 13:20 164/66 67 18 99 % Lab Results: Last 24 Hours Test Results Units Reference Range Ordered Collected Status WBC 6 K/uL L=3.6 H=11.1 05/08/2022 00:00 05/08/2022 04:04 final RBC 3.93 M/uL L=3.69 H=5.19 05/08/2022 00:00 05/08/2022 04:04 final HEMOGLOBIN 13.4 g/dL L=11.4 H=14.4 05/08/2022 00:00 05/08/2022 04:04 final HEMATOCRIT 38.7 % L=33.3 H=45.8 05/08/2022 00:00 05/08/2022 04:04 final MCV 99 fL L=79 H=99 05/08/2022 00:00 05/08/2022 04:04 final MCH 34.1 H pg L=28.0 H=32.0 05/08/2022 00:00 05/08/2022 04:04 final MCHC 35 g/dL L=32 H=36 05/08/2022 00:00 05/08/2022 04:04 final RDW 13.4 % L=11.5 H=14.5 05/08/2022 00:00 05/08/2022 04:04 final PLATELETS 194 K/uL L=150 H=450 05/08/2022 00:00 05/08/2022 04:04 final MPV 10.2 fL L=7.5 H=11.5 05/08/2022 00:00 05/08/2022 04:04 final %NEUT 55 % L=35 H=75 05/08/2022 00:00 05/08/2022 04:04 final %LYMPH 34 % L=15 H=49 05/08/2022 00:00 05/08/2022 04:04 final %MONO 8 % L=3 H=14 05/08/2022 00:00 05/08/2022 04:04 final %EOS 2 % L=0 H=5 05/08/2022 00:00 05/08/2022 04:04 final %BASO 1 % L=0 H=1 05/08/2022 00:00 05/08/2022 04:04 final #NEUT 3.3 K/uL L=2.0 H=8.0 05/08/2022 00:00 05/08/2022 04:04 final #LYMPH 2 K/uL L=0.9 H=3.9 05/08/2022 00:00 05/08/2022 04:04 final #MONO 0.5 K/uL L=0.1 H=2.0 05/08/2022 00:00 05/08/2022 04:04 final #EOS 0.1 K/uL L=0.0 H=0.7 05/08/2022 00:00 05/08/2022 04:04 final #BASO 0 K/uL L=0.0 H=0.2 05/08/2022 00:00 05/08/2022 04:04 final MANUAL DIFF NOT INDICATED 05/08/2022 00:00 05/08/2022 04:04 final RBC MORPH NOT INDICATED 05/08/2022 00:00 05/08/2022 04:04 final SENT OUT ADDTNL TEST NO 05/08/2022 00:00 05/08/2022 04:04 final SODIUM 140 mmol/L L=137 H=145 05/08/2022 00:00 05/08/2022 04:04 final POTASSIUM 3.5 mmol/L L=3.5 H=5.1 05/08/2022 00:00 05/08/2022 04:04 final CHLORIDE 108 H mmol/L L=98 H=107 05/08/2022 00:00 05/08/2022 04:04 final CO2 26 mmol/L L=22 H=30 05/08/2022 00:00 05/08/2022 04:04 final ANION GAP 6 05/08/2022 00:00 05/08/2022 04:04 final GLUCOSE 86 mg/dL L=74 H=100 05/08/2022 00:00 05/08/2022 04:04 final BUN 15 mg/dL L=7 H=17 05/08/2022 00:00 05/08/2022 04:04 final CREATININE 0.61 mg/dL L=0.5200 H=1.0400 05/08/2022 00:00 05/08/2022 04:04 final BUN/CREAT 25 05/08/2022 00:00 05/08/2022 04:04 final TOTAL PROTEIN 6.3 g/dL L=6.3 H=8.2 05/08/2022 00:00 05/08/2022 04:04 final ALBUMIN 3.9 g/dL L=3.5 H=5.0 05/08/2022 00:00 05/08/2022 04:04 final GLOBULIN 2 L g/dL L=2 H=5 05/08/2022 00:00 05/08/2022 04:04 final A/G RATIO 1.63 05/08/2022 00:00 05/08/2022 04:04 final CALCIUM 8.6 mg/dL L=8.6 H=10.3 05/08/2022 00:00 05/08/2022 04:04 final TOTAL BILI 0.4 mg/dL L=0.2 H=1.3 05/08/2022 00:00 05/08/2022 04:04 final ALKALINE PHOS 43 U/L L=38 H=126 05/08/2022 00:00 05/08/2022 04:04 final SGOT/AST 25 U/L L=14 H=36 05/08/2022 00:00 05/08/2022 04:04 final SGPT/ALT 14 U/L L=0 H=35 05/08/2022 00:00 05/08/2022 04:04 final AGE 81 yrs 05/08/2022 00:00 05/08/2022 04:04 final AFR AMER GFR 114 mL/min 05/08/2022 00:00 05/08/2022 04:04 final NON-AA GFR 94 mL/min 05/08/2022 00:00 05/08/2022 04:04 final TROPONIN HS 0.0098 ng/mL L=0.0000 H=0.0399 05/08/2022 00:00 05/08/2022 04:04 final WBC 8.1 K/uL L=3.6 H=11.1 05/07/2022 12:52 05/07/2022 13:26 final RBC 4.32 M/uL L=3.69 H=5.19 05/07/2022 12:52 05/07/2022 13:26 final HEMOGLOBIN 14.6 H g/dL L=11.4 H=14.4 05/07/2022 12:52 05/07/2022 13:26 final HEMATOCRIT 42.8 % L=33.3 H=45.8 05/07/2022 12:52 05/07/2022 13:26 final MCV 99 fL L=79 H=99 05/07/2022 12:52 05/07/2022 13:26 final MCH 33.8 H pg L=28.0 H=32.0 05/07/2022 12:52 05/07/2022 13:26 final MCHC 34 g/dL L=32 H=36 05/07/2022 12:52 05/07/2022 13:26 final RDW 13.3 % L=11.5 H=14.5 05/07/2022 12:52 05/07/2022 13:26 final PLATELETS 217 K/uL L=150 H=450 05/07/2022 12:52 05/07/2022 13:26 final MPV 10.4 fL L=7.5 H=11.5 05/07/2022 12:52 05/07/2022 13:26 final %NEUT 79 H % L=35 H=75 05/07/2022 12:52 05/07/2022 13:26 final %LYMPH 14 L % L=15 H=49 05/07/2022 12:52 05/07/2022 13:26 final %MONO 6 % L=3 H=14 05/07/2022 12:52 05/07/2022 13:26 final %EOS 0 % L=0 H=5 05/07/2022 12:52 05/07/2022 13:26 final %BASO 0 % L=0 H=1 05/07/2022 12:52 05/07/2022 13:26 final #NEUT 6.4 K/uL L=2.0 H=8.0 05/07/2022 12:52 05/07/2022 13:26 final #LYMPH 1.1 K/uL L=0.9 H=3.9 05/07/2022 12:52 05/07/2022 13:26 final #MONO 0.5 K/uL L=0.1 H=2.0 05/07/2022 12:52 05/07/2022 13:26 final #EOS 0 K/uL L=0.0 H=0.7 05/07/2022 12:52 05/07/2022 13:26 final #BASO 0 K/uL L=0.0 H=0.2 05/07/2022 12:52 05/07/2022 13:26 final MANUAL DIFF NOT INDICATED 05/07/2022 12:52 05/07/2022 13:26 final RBC MORPH NOT INDICATED 05/07/2022 12:52 05/07/2022 13:26 final SENT OUT ADDTNL TEST NO 05/07/2022 12:52 05/07/2022 13:26 final SODIUM 138 mmol/L L=137 H=145 05/07/2022 12:52 05/07/2022 13:26 final POTASSIUM 4 mmol/L L=3.5 H=5.1 05/07/2022 12:52 05/07/2022 13:26 final CHLORIDE 104 mmol/L L=98 H=107 05/07/2022 12:52 05/07/2022 13:26 final CO2 27 mmol/L L=22 H=30 05/07/2022 12:52 05/07/2022 13:26 final ANION GAP 7 05/07/2022 12:52 05/07/2022 13:26 final GLUCOSE 95 mg/dL L=74 H=100 05/07/2022 12:52 05/07/2022 13:26 final BUN 19 H mg/dL L=7 H=17 05/07/2022 12:52 05/07/2022 13:26 final CREATININE 0.8 mg/dL L=0.5200 H=1.0400 05/07/2022 12:52 05/07/2022 13:26 final BUN/CREAT 24 05/07/2022 12:52 05/07/2022 13:26 final TOTAL PROTEIN 7.4 g/dL L=6.3 H=8.2 05/07/2022 12:52 05/07/2022 13:26 final ALBUMIN 4.6 g/dL L=3.5 H=5.0 05/07/2022 12:52 05/07/2022 13:26 final GLOBULIN 3 g/dL L=2 H=5 05/07/2022 12:52 05/07/2022 13:26 final A/G RATIO 1.64 05/07/2022 12:52 05/07/2022 13:26 final CALCIUM 9.9 mg/dL L=8.6 H=10.3 05/07/2022 12:52 05/07/2022 13:26 final TOTAL BILI 0.6 mg/dL L=0.2 H=1.3 05/07/2022 12:52 05/07/2022 13:26 final ALKALINE PHOS 51 U/L L=38 H=126 05/07/2022 12:52 05/07/2022 13:26 final SGOT/AST 27 U/L L=14 H=36 05/07/2022 12:52 05/07/2022 13:26 final SGPT/ALT 15 U/L L=0 H=35 05/07/2022 12:52 05/07/2022 13:26 final AGE 81 yrs 05/07/2022 12:52 05/07/2022 13:26 final AFR AMER GFR 83 mL/min 05/07/2022 12:52 05/07/2022 13:26 final NON-AA GFR 69 mL/min 05/07/2022 12:52 05/07/2022 13:26 final MAGNESIUM 2 mg/dL L=1.6 H=2.3 05/07/2022 12:52 05/07/2022 13:26 final PROTIME 10.1 Secs L=9.0 H=11.2 05/07/2022 12:52 05/07/2022 13:26 final INR 1 L=0.9 H=1.1 05/07/2022 12:52 05/07/2022 13:26 final PTT 23.6 Secs L=22.0 H=30.0 05/07/2022 12:52 05/07/2022 13:26 final TROPONIN HS 0.0074 ng/mL L=0.0000 H=0.0399 05/07/2022 12:52 05/07/2022 13:26 final CULTURE, URINE (SEND OUT) 05/07/2022 12:52 05/07/2022 13:11 registered SOURCE CLEAN CATCH 05/07/2022 12:52 05/07/2022 13:11 final COLOR Yellow NORMAL: Straw 05/07/2022 12:52 05/07/2022 13:11 final CLARITY Slightly NORMAL: Clear 05/07/2022 12:52 05/07/2022 13:11 final GLUCOSE Negative NORMAL: Negative 05/07/2022 12:52 05/07/2022 13:11 final BILIRUBIN Negative NORMAL: Negative 05/07/2022 12:52 05/07/2022 13:11 final KETONE Trace A NORMAL: Negative 05/07/2022 12:52 05/07/2022 13:11 final SPEC GRAVITY 1.025 1.005 - 1.020 05/07/2022 12:52 05/07/2022 13:11 final BLOOD Negative NORMAL: Negative 05/07/2022 12:52 05/07/2022 13:11 final pH 6.0 5.5 - 7.5 05/07/2022 12:52 05/07/2022 13:11 final PROTEIN 30 A NORMAL: Negative 05/07/2022 12:52 05/07/2022 13:11 final UROBILINOGEN 0.2 0.2 - 1.0 mg/dL 05/07/2022 12:52 05/07/2022 13:11 final NITRITE Negative NORMAL: Negative 05/07/2022 12:52 05/07/2022 13:11 final LEUK EST Large A NORMAL: Negative 05/07/2022 12:52 05/07/2022 13:11 final MICROSCOPIC See Below 05/07/2022 12:52 05/07/2022 13:11 final WBC >50 A NORMAL: <5 / HPF 05/07/2022 12:52 05/07/2022 13:11 final RBC None Seen NORMAL: <2 / HPF 05/07/2022 12:52 05/07/2022 13:11 final EPITHELIAL 21 - 50 NORMAL: 1-5/ HPF 05/07/2022 12:52 05/07/2022 13:11 final BACTERIA FEW 1 - 5 A NORMAL: NONE 05/07/2022 12:52 05/07/2022 13:11 final CASTS None Seen 05/07/2022 12:52 05/07/2022 13:11 final CRYSTALS None Seen 05/07/2022 12:52 05/07/2022 13:11 final CULTURE? Sent Out 05/07/2022 12:52 05/07/2022 13:11 final Assessment Problem List Syncope UTI Contusion of head, initial encounter Plan DC home Cefuroxime x7 days for home for continued UTI treatment Pending culture of Urine Continue home medications Urology & PCP follow up Tylenol as needed for headache Medications given this visit: Ordered & Completed Meds Table Ordered Medication Start Date/Time Dosage Route Frequency Status CEFTRIAXONE 1GM INJ 05/07/2022 13:49 1 GM IV PUSH X1 completed SODIUM CHLORIDE 0.9% 500ML IV SOLN 05/07/2022 13:50 INTRAVENOUS X1 completed ONDANSETRON ODT 4MG TAB 05/07/2022 14:20 4 MG ORAL PRN Q6H active ACETAMINOPHEN 325MG TAB 05/07/2022 14:20 650 MG ORAL PRN Q6H active NS 1,000 ML IV SOLN 05/07/2022 14:20 75 ml/hr INTRAVENOUS CONTINUOUS active CEFTRIAXONE 1GM INJ 05/08/2022 09:00 1 GM IV PUSH Q12HR active LISINOPRIL 10MG TAB 05/07/2022 19:07 10 MG ORAL DAILY completed DONEPEZIL HCL 5MG TAB 05/07/2022 19:07 10 MG ORAL DAILY active DOCUSATE SODIUM 100MG CAP 05/07/2022 19:07 100 MG ORAL BID active MIRTAZAPINE 15MG TAB 05/07/2022 19:07 7.5 MG ORAL Q24H active ATORVASTATIN 10MG TAB 05/07/2022 19:07 20 MG ORAL BEDTIME active LISINOPRIL 10MG TAB 05/08/2022 08:00 10 MG ORAL DAILY active Discharge Medications: Discharge Medications Acetaminophen 500MG Oral Capsule Atorvastatin Calcium 20MG Oral Tablet Cranberry 500MG Oral Capsule Docusate 100MG Oral Capsule, Liquid Filled Donepezil HCl 10MG Oral Tablet Ibuprofen 200MG Oral Tablet Lisinopril 10MG Oral Tablet Mirtazapine 7.5MG Oral Tablet Vitamin B12 1000MCG Oral Tablet Vitamin C 1000MG Oral Tablet Vitamin D3 10 MCG Oral Capsule, Liquid Filled Cefuroxime 250MG Oral Tablet
--- OUTSIDE RECORDS SUMMARY | 2024-05-05 14:49 | XMS_ITS ---
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030 1.005 - 1.020 A BLOOD Negative NORMAL: Negative pH 5.5 5.5 - 7.5 PROTEIN Negative NORMAL: Negative UROBILINOGEN 0.2 0.2 - 1.0 mg/dL NITRITE Negative NORMAL: Negative LEUK EST Small NORMAL: Negative A MICROSCOPIC See Below WBC 0 - 5 NORMAL: <5 / HPF RBC None Seen NORMAL: <2 / HPF EPITHELIAL 0 - 5 NORMAL: 1-5/ HPF BACTERIA MANY >15 NORMAL: NONE A CASTS None Seen CRYSTALS None Seen CULTURE? Sent Out PT/INR/PTT - Collect Date/Ti me: 07/25/2022 14:37 [facility] H OS ID: [id number] [address] [place], [place], [address] LOINC: Test Value Unit Reference Range Code Code System Flag PROTIME 9.6 Secs L=9.0 H=11.2 INR 1.0 L=0.9 H=1.1 PTT 22.5 Secs L=22.0 H=30.0 PCR SARS COV-2_FLU_RSV - Col lect Date/Time: 07/25/2022 14:37 [facility] H OS ID: [id number] [address], [place], [address] LOINC: Test Value Unit Reference Range Code Code System Flag SARS SPECIMEN SOURCE Nasopharyngeal RSV NEGATIVE NORMAL: NEGATIVE INFLUENZA A NEGATIVE NORMAL: NEGATIVE INFLUENZA B NEGATIVE NORMAL: NEGATIVE SARS COVID NEGATIVE NORMAL: NEGATIVE CBC W/AUTO DIFF - Collect Da te/Time: 07/25/2022 14:37 [facility] H OS ID: [id number] [address] [facility] [address] LOINC: Test Value Unit Reference Range Code Code System Flag WBC 8.0 K/uL L=3.6 H=11.1 RBC 4.33 M/uL L=3.69 H=5.19 HEMOGLOBIN 14.8 g/dL L=11.4 H=14.4 H HEMATOCRIT 43.0 % L=33.3 H=45.8 MCV 99 fL L=79 H=99 MCH 34.2 pg L=28.0 H=32.0 H MCHC 34 g/dL L=32 H=36 RDW 13.7 % L=11.5 H=14.5 PLATELETS 215 K/uL L=150 H=450 MPV 10.6 fL L=7.5 H=11.5 %NEUT 81 % L=35 H=75 H %LYMPH 13 % L=15 H=49 L %MONO 6 % L=3 H=14 %EOS 0 % L=0 H=5 %BASO 0 % L=0 H=1 #NEUT 6.5 K/uL L=2.0 H=8.0 #LYMPH 1.0 K/uL L=0.9 H=3.9 #MONO 0.5 K/uL L=0.1 H=2.0 #EOS 0.0 K/uL L=0.0 H=0.7 #BASO 0.0 K/uL L=0.0 H=0.2 MANUAL DIFF NOT INDICATED RBC MORPH NOT INDICATED SENT OUT ADDTNL TEST NO CMP - Collect Date/Time: 07/2022 14:37 [facility] OS ID: [id number] [address] [place], [place], [address] LOINC: Test Value Unit Reference Range Code Code System Flag SODIUM 145 mmol/L L=137 H=145 POTASSIUM 4.2 mmol/L L=3.5 H=5.1 CHLORIDE 112 mmol/L L=98 H=107 H CO2 26 mmol/L L=22 H=30 ANION GAP 7 GLUCOSE 116 mg/dL L=74 H=100 H BUN 24 mg/dL L=7 H=17 H CREATININE 0.8600 mg/dL L=0.5200 H=1.0400 BUN/CREAT 28 TOTAL PROTEIN 6.6 g/dL L=6.3 H=8.2 ALBUMIN 4.2 g/dL L=3.5 H=5.0 GLOBULIN 2 g/dL L=2 H=5 L A/G RATIO 1.75 CALCIUM 9.7 mg/dL L=8.6 H=10.3 TOTAL BILI 0.3 mg/dL L=0.2 H=1.3 ALKALINE PHOS 41 U/L L=38 H=126 SGOT/AST 28 U/L L=14 H=36 SGPT/ALT 18 U/L L=0 H=35 AGE 82 yrs AFR AMER GFR 76 mL/min NON-AA GFR 63 mL/min CT CERVICAL SPINE WO CON - C ompleted: 07/25/2022 14:54 LOINC: \TM00\\12PI\\DRAo\\BM09\\PGN o\\MRB2\ \MRHo\ [facility] [address] [place] [address] ---------NAME--------- NUMBER SEX AGE ADMIT DISC. XRAY# F/C TYPE SUJEY FAGAN [id number] F 82 07/25/22 [id number] MB E/R DATE OF : 1940 M/R# [id number] PH#: [phone] ED-3 \MRHx\ LOCATION: TRANSCRIBED: 07/25/22 14:53 CT CERVICAL SPINE [place] CON [id number] COMPLETED:07/25/22 14:54 NOV [id number] {SPINE PROCED REASON: FALL PHYSICIAN: Ariana THOMAS D R A D I O L O G Y R E P O R T Radiation Dose CTDIVOL = 13.21 (mGy): DLP = 294.82 (mGy-cm) PROCEDURE INFORMATION: Exam: CT Cervical Spine Without Contrast Exam date and time: 07/25/2022 2:53 PM Age: 82 years old Clinical indication: Other: Syncope and fall today. ; Additional info: Spine proced reason: Fall TECHNIQUE: Imaging protocol: Computed tomography of the cervical spine without contrast. Radiation optimization: All CT scans at this facility use at least one of these dose optimization techniques: automated exposure control; mA and/or kV adjustment per patient size (includes targeted exams where dose is matched to clinical indication); or iterative reconstruction. REPORTING DATA: Count of CT and Cardiac NM exams in prior 12 months: This patient has received 2 known CTs and 0 known cardiac nuclear medicine studies in the 12 months prior to the current study. COMPARISON: CT HEAD WO CON 07/25/2022 2:44 PM RADIATION DOSE METRICS: CTDI volume (mGy): 13.21 Total DLP (mGy-cm): 294.82 FINDINGS: Bones/joints: There is no fracture. There is significant degenerative narrowing of the C4-C5 through C6-C7 disc spaces with a 2-3 mm bridging osteophyte with minimal to moderate spinal stenosis and multilevel foraminal stenosis. At the C3-C4 disc space is a 2 mm anterolisthesis and hypertrophic degenerative change of the left facet joint with minimal foraminal stenosis. There is underlying osteopenia without osseous metastatic disease. The occipital condyles/C1 and C1/C2 facet articulations are maintained as are the remaining facet joints with diffuse degenerative changes particularly involving the left C3-C4 facet with a dorsal osteophyte. There is no cerebellar tonsillar ectopia. Lungs: There is emphysema. Soft tissues: Unremarkable. IMPRESSION: No acute findings. THIS DOCUMENT HAS BEEN ELECTRONICALLY SIGNED BY JOSEPH ZAMORA MD ON 07/25/2022 17:27:35 \ITLo\ \UNDo\ \UNDx\ \ITLx\ CT HEAD WO CON - Completed: 07/25/2022 14:46 LOINC: \TM00\\12PI\\DRAo\\BM09\\PGN o\\MRB2\ \MRHo\ [place] [address] [place] [address] ---------NAME--------- NUMBER SEX AGE ADMIT DISC. XRAY# F/C TYPE SUJEY FAGAN [id number] F 82 07/25/22 [id number] MB E/R DATE OF : 1940 M/R# [id number] PH#: [phone] ED-3 \MRHx\ LOCATION: TRANSCRIBED: 07/25/22 14:44 [place] [id number] COMPLETED:07/25/22 14:46 NOV [id number] {REASON FOR TEST: EXTERNAL INJURY/TRAUMA PHYSICIAN: Ariana THOMAS D R A D I O L O G Y R E P O R T Radiation Dose CTDIVOL = 62.15 (mGy): DLP = 998.04 (mGy-cm) PROCEDURE INFORMATION: Exam: CT Head Without Contrast Exam date and time: 07/25/2022 2:44 PM Age: 82 years old Clinical indication: Syncope and collapse; Patient HX: Syncope and fall today. ; Additional info: Reason for test: External injury/trauma TECHNIQUE: Imaging protocol: Computed tomography of the head without contrast. Radiation optimization: All CT scans at this facility use at least one of these dose optimization techniques: automated exposure control; mA and/or kV adjustment per patient size (includes targeted exams where dose is matched to clinical indication); or iterative reconstruction. REPORTING DATA: Count of CT and Cardiac NM exams in prior 12 months: This patient has received 2 known CTs and 0 known cardiac nuclear medicine studies in the 12 months prior to the current study. COMPARISON: CT HEAD WO CON 05/07/2022 1:28 PM RADIATION DOSE METRICS: CTDI volume (mGy): 62.15 Total DLP (mGy-cm): 998.04 FINDINGS: Brain: No acute territorial infarct or intracranial hemorrhage. No mass effect or midline shift. Old right frontal infarct is present. Diffuse cerebral atrophy and advanced severe chronic small vessel ischemic change. Marked atherosclerotic calcification of the distal internal carotid and vertebral arteries. Cerebral ventricles: No ventriculomegaly. Paranasal sinuses: Visualized sinuses are unremarkable. No fluid levels. Mastoid air cells: Visualized mastoid air cells are well aerated. Bones/joints: No acute displaced fracture. Soft tissues: Unremarkable. IMPRESSION: No acute territorial infarct or intracranial hemorrhage detected. COMMENTS: If there is further clinical concern for intracranial pathology, MRI of the brain may be performed for further assessment. THIS DOCUMENT HAS BEEN ELECTRONICALLY SIGNED BY LUZ MARINA JARRETT MD ON 07/25/2022 17:09:07 \ITLo\ \UNDo\ \UNDx\ \ITLx\ XR CHEST 1 VIEW - Completed: 07/25/2022 14:42 LOINC: \TM00\\12PI\\DRAo\\BM09\\PGN o\\MRB2\ \MRHo\ [facility] [address] [place] [address] ---------NAME--------- NUMBER SEX AGE ADMIT DISC. XRAY# F/C TYPE SUJEY FAGAN [id number] F 82 07/25/22 [id number] MB E/R DATE OF : 1940 M/R# [id number] #: [phone] ED-3 \MRHx\ LOCATION: TRANSCRIBED: 07/25/22 14:37 XR CHEST 1 VIEW [id number] COMPLETED:07/25/22 14:42 NOV [id number] {REASON FOR CHEST: COUGH PHYSICIAN: Ariana THOMAS D R A D I O L O G Y R E P O R T PROCEDURE INFORMATION: Exam: XR Chest Exam date and time: 07/25/2022 2:37 PM Age: 82 years old Clinical indication: Other: Patient passed out; Patient HX: Syncope and fall today. ; Additional info: Reason for chest: Cough TECHNIQUE: Imaging protocol: Radiologic exam of the chest. Views: 1 view. COMPARISON: No relevant prior studies available. FINDINGS: Lungs: Normal lung volumes. No consolidation. Pleural spaces: Unremarkable. No pleural effusion. No pneumothorax. Heart/Mediastinum: Heart size is within normal limits. Vasculature is unremarkable. Bones/joints: Unremarkable. IMPRESSION: No acute cardiopulmonary findings. THIS DOCUMENT HAS BEEN ELECTRONICALLY SIGNED BY JERE NOLASCO MD ON 07/25/2022 17:21:12 \ITLo\ \UNDo\ \UNDx\ \ITLx\ Social History Type Status Start Date End Date Code Code Syst em Smoking History Current every day smoker [birth year][address] Sex Female Vital Signs Vital Sign Value Unit Cannon Value Cannon Unit Date/Time Recent/Initial? Code Code System Body Mass Index 17.74 kg/m2 07/25/2022 14:12 Initial 04421 -5 LOINC Systolic Blood Pressure 141 mm[Hg] 07/25/2022 18:08 Most Recent 8480- 6 LOINC Diastolic Blood Pressure 62 mm[Hg] 07/25/2022 18:08 Most Recent 8462- 4 LOINC Systolic Blood Pressure 101 mm[Hg] 07/25/2022 14:12 Initial 8480- 6 LOINC Diastolic Blood Pressure 69 mm[Hg] 07/25/2022 14:12 Initial 8462- 4 LOINC Body Surface Area 1.47 m2 07/25/2022 14:12 Initial 3140- 1 LOINC Height 163.830 0 cm 64.50 in 07/25/2022 14:12 Initial 8302- 2 LOINC O2 Saturation 95 % 2022 18:08 Most Recent 20660 -5 LOINC O2 Saturation 97 % 2022 14:12 Initial 23379 -5 LOINC Pulse 89.0 /min 07/25/2022 18:08 Most Recent 8867- 4 LOINC Pulse 63.0 /min 07/25/2022 14:12 Initial 8867- 4 LOINC Respiration 16 /min 07/26/19 18:08 Most Recent 9279- 1 [facility] Respiration 16 /min 07/26/19 14:12 Initial 9279- 1 [facility] Temperature 36.3 Latisha 97.4 F 07/26/19 14:12 Initial 8310- 5 [facility] Weight 47.63 kg 105.00 lbs 07/25/2022 14:12 Initial 40277 -7 [facility] Medications Medication Start Date End Date Route Frequency Dose Code Code System Medication Instructions Home Meds Acetaminophen 500MG Oral Capsule 05/08/2022 Unknown ORAL DAILY 1000 MILLIGRAMS 846157 RxNorm TAKE 1000 MILLIGRAMS ORAL DAILY Atorvastatin Calcium 20MG Oral Tablet 05/08/2022 Unknown ORAL AT BEDTIME 20 MILLIGRAMS 419397 RxNorm TAKE 20 MILLIGRAMS ORAL AT BEDTIME Cranberry 500MG Oral Capsule 05/08/2022 Unknown ORAL AT BEDTIME 500 MILLIGRAMS 8048076 RxNorm TAKE 500 MILLIGRAMS ORAL AT BEDTIME Docusate 100MG Oral Capsule, Liquid Filled 05/08/2022 Unknown ORAL TWICE A DAY 100 MILLIGRAMS 9982804 RxNorm TAKE 100 MILLIGRAMS ORAL TWICE A DAY Donepezil HCl 10MG Oral Tablet 05/08/2022 Unknown ORAL DAILY 10 MILLIGRAMS 168091 RxNorm TAKE 10 MILLIGRAMS ORAL DAILY Ibuprofen 200MG Oral Tablet 05/08/2022 Unknown ORAL AT BEDTIME 400 MILLIGRAMS 761182 RxNorm TAKE 400 MILLIGRAMS ORAL AT BEDTIME Lisinopril 10MG Oral Tablet 05/08/2022 Unknown ORAL DAILY 10 MILLIGRAMS 187072 RxNorm TAKE 10 MILLIGRAMS ORAL DAILY Mirtazapine 7.5MG Oral Tablet 05/08/2022 Unknown ORAL AT BEDTIME 7.5 MILLIGRAMS 771386 RxNorm TAKE 7.5 MILLIGRAMS ORAL AT BEDTIME Vitamin B12 1000MCG Oral Tablet 05/08/2022 Unknown ORAL DAILY 1000 MCG 002282 RxNorm TAKE 1000 MCG ORAL DAILY Vitamin C 1000MG Oral Tablet 05/08/2022 Unknown ORAL DAILY 1000 MILLIGRAMS 437776 RxNorm TAKE 1000 MILLIGRAMS ORAL DAILY Vitamin D3 10 MCG Oral Capsule, Liquid Filled 05/08/2022 Unknown ORAL DAILY 10 MCG RxNorm TAKE 10 MCG ORAL DAILY Cefuroxime 250MG Oral Tablet 05/08/2022 Unknown ORAL TWICE A DAY 2 TABLET 730113 RxNorm TAKE 2 TABLET ORAL TWICE A DAY Nitrofurantoin 100MG Oral Capsule 07/25/2022 Unknown ORAL EVERY 12 HOURS 1 CAPSULE 7421466 RxNorm TAKE 1 CAPSULE ORAL EVERY 12 HOURS Assessment You had the following problems:SYNCOPEUTICONTUSION OF HEAD, INITIAL ENCOUNTER Assessment & Plan Hospital Discharge Instructions Should you have any questions prior to discharge, please contact a member of your healthcare team. If you have left the hospital and have any questions, please contact your primary care physician. Reason For Referral No Data Found Problems Problem Start Date Resolved Date Status Code Code System SYNCOPE active 441338008 SNOMED-CT UTI active 90812841 SNOMED-CT CONTUSION OF HEAD, INITIAL ENCOUNTER active 515215942 SNOMED-CT HYPERTENSION 05/07/2022 resolved 70672507 SNOMED -CT URINARY TRACT INFECTION 05/07/2022 resolved 79879 005 SNOMED-CT Allergies and Adverse Reactions Allergy Substance Reaction Severity Start Date Concern Status Co de Code System No Known Drug Allergies Active 763677045 SNOMED-CT Plan of Treatment No Data Found Personal Care Team Section Performer Name Performer Role Active Date Inactive Da te
--- OUTSIDE RECORDS SUMMARY | 2024-05-05 14:49 | XMS_ITS ---
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 Code Code System Body Mass Index 17.64 kg/m2 08/04/2022 15:59 Initial 17431 -5 [facility] Systolic Blood Pressure 138 mm[Hg] 08/04/2022 16:04 [facility] 8480- [facility] Diastolic Blood Pressure 91 mm[Hg] 08/04/2022 16:04 Initial 8462- 4 [facility] Body Surface Area 1.48 m2 08/04/2022 15:59 Initial 3140- 1 LOINC Height 165.100 0 cm 65.00 in 08/04/2022 15:59 Initial 8302- 2 INC O2 Saturation 96 % 2022 15:59 Initial 54591 -5 [facility] Pulse 63.0 /min 08/04/2022 15:59 Initial 8867- 4 [facility] Respiration 16 /min 08/05/19 15:59 Initial 9279- 1 LOINC Temperature 36.7 Latisha 98.1 F 08/05/19 23 15:59 Initial 8310- 5 LOINC Weight 48.08 kg 106.00 lbs 08/04/2022 15:59 Initial 60435 -7 [facility] Medications Medication Start Date End Date Route Frequency Dose Code Code System Medication Instructions Home Meds Acetaminophen 500MG Oral Capsule 05/08/2022 Unknown ORAL DAILY 1000 MILLIGRAMS 228629 RxNorm TAKE 1000 MILLIGRAMS ORAL DAILY Atorvastatin Calcium 20MG Oral Tablet 05/08/2022 Unknown ORAL AT BEDTIME 20 MILLIGRAMS 425770 RxNorm TAKE 20 MILLIGRAMS ORAL AT BEDTIME Cranberry 500MG Oral Capsule 05/08/2022 Unknown ORAL AT BEDTIME 500 MILLIGRAMS 8124219 RxNorm TAKE 500 MILLIGRAMS ORAL AT BEDTIME Docusate 100MG Oral Capsule, Liquid Filled 05/08/2022 Unknown ORAL TWICE A DAY 100 MILLIGRAMS 4586550 RxNorm TAKE 100 MILLIGRAMS ORAL TWICE A DAY Donepezil HCl 10MG Oral Tablet 05/08/2022 Unknown ORAL DAILY 10 MILLIGRAMS 520218 RxNorm TAKE 10 MILLIGRAMS ORAL DAILY Ibuprofen 200MG Oral Tablet 05/08/2022 Unknown ORAL AT BEDTIME 400 MILLIGRAMS 603671 RxNorm TAKE 400 MILLIGRAMS ORAL AT BEDTIME Lisinopril 10MG Oral Tablet 05/08/2022 Unknown ORAL DAILY 10 MILLIGRAMS 852030 RxNorm TAKE 10 MILLIGRAMS ORAL DAILY Mirtazapine 7.5MG Oral Tablet 05/08/2022 Unknown ORAL AT BEDTIME 7.5 MILLIGRAMS 161547 RxNorm TAKE 7.5 MILLIGRAMS ORAL AT BEDTIME Vitamin B12 1000MCG Oral Tablet 05/08/2022 Unknown ORAL DAILY 1000 MCG 816529 RxNorm TAKE 1000 MCG ORAL DAILY Vitamin C 1000MG Oral Tablet 05/08/2022 Unknown ORAL DAILY 1000 MILLIGRAMS 179320 RxNorm TAKE 1000 MILLIGRAMS ORAL DAILY Vitamin D3 10 MCG Oral Capsule, Liquid Filled 05/08/2022 Unknown ORAL DAILY 10 MCG RxNorm TAKE 10 MCG ORAL DAILY Cefuroxime 250MG Oral Tablet 05/08/2022 Unknown ORAL TWICE A DAY 2 TABLET 676051 RxNorm TAKE 2 TABLET ORAL TWICE A DAY Nitrofurantoin 100MG Oral Capsule 07/25/2022 Unknown ORAL EVERY 12 HOURS 1 CAPSULE 6524482 RxNorm TAKE 1 CAPSULE ORAL EVERY 12 [...] Date Status Code Code System SYNCOPE active 351730178 SNOMED-CT UTI active 44480135 SNOMED-CT CONTUSION OF HEAD, INITIAL ENCOUNTER active 710154568 SNOMED-CT HYPERTENSION 05/07/2022 resolved 76672819 SNOMED -CT URINARY TRACT INFECTION 05/07/2022 resolved 69119 005 SNOMED-CT Allergies and Adverse Reactions Allergy Substance Reaction Severity Start Date Concern Status Co de Code System No Known Drug Allergies Active 189199522 SNOMED-CT Plan of Treatment Plan: follow-up with PCP call for appointment continue current medications return for increased problem Ordered & Completed Meds Table: No Current Medications Available Discharge Medications: Personal Care Team Section Performer Name Performer Role Active Date Inactive Da barak
--- NOTE | 2024-05-05 15:30 | ED.FEMALEGU ---
HPI - Female Genitourinary General Date Seen: 05/05/24 Chief complaint: Urogenital Problems, Female Stated complaint: possible UTI Time Seen by Provider: 05/05/24 14:51 Source: family Mode of arrival: ambulatory Limitations: no limitations History of Present Illness HPI Narrative: Patient is an 83-year-old female presenting to the emergency department for weakness and a UTI. Family states she seems slightly more weaker than her baseline. She lives in the memory care unit for dementia. She has recurrent UTIs in the past several UTI she required IV antibiotics for treatment. She has started having foul-smelling urine dark urine ink and it a urine sample was sent on the . Results returned today showing she is growing ESBL E coli and Bacteroides fragilis. Family was told she would need IV antibiotics and she was brought to the emergency department. She typically goes to [facility] but the patient's preferred she come to [facility] this time. Patient denies a abdominal pain, dysuria, fevers, chills, chest pain, shortness of breath. Related Data Home Medications ?Medication ?Instructions ?Recorded ?Confirmed albuterol sulfate 90 mcg/actuation inhalation 05/05/24 aerosol inhaler cranberry 500 mg capsule 500 mg PO DAILY 05/05/24 05/05/24 docusate sodium 05/05/24 estradiol 0.01% (0.1 mg/gram) vaginal 05/05/24 vaginal cream lisinopril 5 mg tablet 5 mg PO DAILY 05/05/24 05/05/24 mirtazapine 7.5 mg tablet 7.5 mg PO QPM 05/05/24 05/05/24 Allergies Allergy/AdvReac Type Severity Reaction Status Date / Time No Known Allergies Allergy Unknown Unverified 07/30/23 08:32 Review of Systems Status of ROS: Reports: 10 or more systems reviewed and unremarkable except as noted in History and below Exam Narrative: Exam Narrative: Const: Well-nourished, Well-developed, in mild distress Eyes: PERRL, no conjunctival injection, and symmetrical lids HENT: Atraumatic external nose and ears. Moist mucous membranes. Neck: Symmetric, trachea midline, No thyromegaly. CVS: RRR, No murmurs or gallops. Peripheral pulses 2+ and equal in all extremities RESP: Unlabored respiratory effort. Clear to auscultation bilaterally. GI: Nontender/Nondistended, No rebound or guarding. MSK:Extremities w/o deformity, Normal Active ROM Skin: Warm, Dry. No rashes or lesions. Neuro: Normal Muscle tone, No focal neurological deficits. Psych: Awake, Alert, & Oriented x3. Appropriate mood and affect. Const: Vital Signs, click to edit/add: Vital Signs - 24 hr 05/05/24 14:48 Temperature 97 F L Pulse Rate [Pulse Oximeter] 88 Respiratory Rate 18 Blood Pressure [Ri ght Upper Arm] 138/91 H Pulse Oximetry 95 Oxygen Delivery Me thod Room Air Course Vital Signs Vital signs: Initial Vital Signs Temperature 97 F L 05/05/24 14:48 Temperature Source Temporal Artery Scan 05/05/24 14:48 Pulse Rate 88 05/05/24 14:48 Respiratory Rate 18 05/05/24 14:48 Blood Pressure 138/91 H 05/05/24 14:48 Blood Pressure Mean 106 H 05/05/24 14:48 Blood Pressure Position Sitting 05/05/24 14:48 Pulse Oximetry 95 05/05/24 14:48 Oxygen Delivery Method Room Air 05/05/24 14:48 Vital Signs Temperature 97 F L 05/05/24 14:48 Pulse Rate 88 05/05/24 14:48 Respiratory Rate 18 05/05/24 14:48 Blood Pressure 138/91 H 05/05/24 14:48 Pulse Oximetry 95 05/05/24 14:48 Oxygen Delivery Method Room Air 05/05/24 14:48 Temperature 97 F L 05/05/24 14:48 Pulse Rate 88 05/05/24 14:48 Respiratory Rate 18 05/05/24 14:48 Blood Pressure 138/91 H 05/05/24 14:48 Pulse Oximetry 95 05/05/24 14:48 Oxygen Delivery Method Room Air 05/05/24 14:48 MDM - Female Genitourinary MDM Narrative Medical decision making narrative: Patient is an 83-year-old female presenting to the emergency department for IV antibiotics for an ESBL urinary tract infection. Her urinalysis was positive for E coli and Bacteroides fragilis. Will do some basic labs for evaluation. CBC and BMP showed no concerning findings. Kidney function within normal limits. His white count showed no concerning findings. She is not meeting SIRS criteria at this time. Considering this is ESBL she will need IV antibiotics. Spoke to family about returning daily for IV antibiotics but they are unsure of like and managed to get her back and forth to this hospital. They would prefer at least 1 night of admission to get things started. I did speak to the hospitalist for possible admission. Hospitalist the your accepted the patient for admission. Patient's last 2 courses of IV antibiotics included ertapenem, fosfomycin and ID consult. I do find it best that the patient be admitted so that she can get ID consult in the morning to determine the best course of antibiotic Lab Data Labs: Lab Results 05/05/24 05/05/24 Range/Units 15:35 16:01 WBC 8.44 (4.50-11.00) K/uL RBC 4.40 (4.00-5.20) m/uL Hgb 13.8 (12.0-16.0) gm/dL Hct 42.5 (33.0-51.0) % MCV 97 (80-100) fL MCH 31 (26-34) pg MCHC 33 (32-36) gm/dL RDW Coeff of Aurelio 14.6 (11.5-15.5) % Plt Count 300 (140-440) K/uL Neut % (Auto) 65.4 (42.0-72.0) % Lymph % (Auto) 24.8 (20-44) % Bullock % (Auto) 6.9 (0.0-11.0) % Eos % (Auto) 1.3 (0.0-7.0) % Baso % (Auto) 0.4 (0.0-3.0) % Neut # (Auto) 5.53 (1.7-7.0) K/uL Lymph # (Auto) 2.09 (0.90-2.90) K/uL Bullock # (Auto) 0.60 (0.00-0.90) K/UL Eos # (Auto) 0.11 (0.00-0.50) K/uL Baso # (Auto) 0.03 (0.00-0.30) K/uL Abs Immat Gran (auto) 0.10 (0.00-0.30) K/uL Imm/Tot Granulo (auto) 1.2 % Sodium 136 (135-149) mmol/L Potassium 4.3 (3.6-5.1) mmol/L Chloride 104 (96-114) mmol/L Carbon Dioxide 26 (20-32) mmol/L Anion Gap 6 L (7-15) mEq/L BUN 26 (7-30) mg/dL Creatinine 1.1 (0.5-1.5) mg/dL Estimated GFR 50 ml/min Glucose 90 (60-115) mg/dL Calcium 9.5 (8.4-10.6) mg/dL Urine Color Yellow (Yellow) Urine Appearance Clear (Clear) Urine pH 5.5 (5.0-8.5) Ur Specific [place] 1.020 (1.000-1.030) Urine Protein 2+ A (Negative) Urine Glucose (UA) Negative (Negative) Urine Ketones Negative (Negative) Urine Blood Trace-lysed A (Negative) Urine Nitrite Positive A (Negative) Urine Bilirubin Negative (Negative) Urine Urobilinogen 0.2 (0.2-1.0) Ur Leukocyte Esterase 3+ A (Negative) Urine RBC 2-5 A (0-2) Urine WBC 10-25 A (0-5) Ur Squamous Epith Cells Few (None-Few) Urine Bacteria Moderate A (None) Discharge Plan Discharge Clinical Impression: Urinary tract infection Qualifiers: Urinary tract infection type: site unspecified Hematuria presence: without hematuria Qualified Code(s): N39.0 - Urinary tract infection, site not specified Patient Disposition: Admitted As Observation Condition: Stable
[2024-05-05 15:45] LABS: Basophils Absolute Auto 0.03 K/uL (0.00-0.30); Basophils Percent Auto 0.4 % (0.0-3.0); Eosinophils Absolute Auto 0.11 K/uL (0.00-0.50); Eosinophils Percent Auto 1.3 % (0.0-7.0); Hematocrit 42.5 % (33.0-51.0); Hemoglobin* 13.8 gm/dL (12.0-16.0); Immature Granulocytes Pct Auto 1.2 %; Lymphocytes Absolute Auto 2.09 K/uL (0.90-2.90); Lymphocytes Percent Auto 24.8 % (20-44); Mean Corpuscular HGB Conc 33 gm/dL (32-36); Mean Corpuscular Hemoglobin 31 pg (26-34); Mean Corpuscular Volume 97 fL (80-100); Monocytes Percent Auto 6.9 % (0.0-11.0); Neutrophils Absolute Auto 5.53 K/uL (1.7-7.0); Neutrophils Percent Auto 65.4 % (42.0-72.0); Platelet Count* 300 K/uL (140-440); RDW Coefficient of Variation % 14.6 % (11.5-15.5); White Blood Count* 8.44 K/uL (4.50-11.00)
[2024-05-05 15:46] LABS: Slide Review Reflex No
[2024-05-05 15:58] LABS: Chloride* 104 mmol/L (96-114); Potassium* 4.3 mmol/L (3.6-5.1); Sodium* 136 mmol/L (135-149)
[2024-05-05 16:01] LABS: Anion Gap 6 mEq/L (7-15); Carbon Dioxide* 26 mmol/L (20-32); Creatinine* 1.1 mg/dL (0.5-1.5); Estimated Glomerular Filt Rate 50 ml/min
[2024-05-05 16:02] LABS: Blood Urea Nitrogen* 26 mg/dL (7-30); Calcium* 9.5 mg/dL (8.4-10.6); Glucose* 90 mg/dL (60-115)
--- OUTSIDE RECORDS SUMMARY | 2024-05-05 16:09 | XMS_ITS ---
Author Organization Unknown Address [address] [place] [address] Phone Care Team Providers Care Supervisor Engraving Name Role Phone HIRA ROSARIO RN Registered Nurse Unavailable Unavailable Xwatchlist Unavailable NAIMA NICOLE Attending Unavailable JOSE G Aguilar ER Unavailable UNKNOWN Primary Unavailable Results TROPONIN HS QUANTITATIVE - C ollect Date/Time: 05/08/2022 04:04 [facility] OS ID: [id number] [address] [place], [place], [address] LOINC: Test Value Unit Reference Range Code Code System Flag TROPONIN HS 0.0098 ng/mL L=0.0000 H=0.0399 CMP - Collect Date/Time: 04:04 [facility] H OS ID: [id number] [address] [place], [place], [address] LOINC: Test Value Unit [...] DIFF - Collect Da te/Time: 05/08/2022 04:04 [facility] H OS ID: [id number] [address], [place], [place], [address] LOINC: Test Value Unit Reference Range Code [...] MAGNESIUM - Collect Date/Osmar e: 05/07/2022 13:26 [facility] H OS ID: [id number] [address] [place], [place], [address] LOINC: Test Value Unit Reference Range Code Code System Flag MAGNESIUM 2.0 mg/dL L=1.6 H=2.3 PT/INR/PTT - Collect Date/Ti me: 05/07/2022 13:26 [facility] H OS ID: [id number] [address] [place], [place], [address] LOINC: Test Value Unit Reference Range Code Code System Flag PROTIME 10.1 Secs L=9.0 H=11.2 INR 1.0 L=0.9 H=1.1 PTT 23.6 Secs L=22.0 H=30.0 TROPONIN HS QUANTITATIVE - C ollect Date/Time: 05/07/2022 13:26 [facility] H OS ID: [id number] [address] [place], [place], [address] LOINC: Test Value Unit Reference Range Code Code System Flag TROPONIN HS 0.0074 ng/mL L=0.0000 H=0.0399 CBC W/AUTO DIFF - Collect Da te/Time: 05/07/2022 13:26 [facility] H OS ID: [id number] [address] [place], [place], [address] LOINC: Test Value Unit [...] TEST NO CMP - Collect Date/Time: 13:26 [facility] OS ID: [id number] [address] , [place], [place], [address] LOINC: Test Value Unit Reference Range Code [...] CULTU RE - Collect Date/Time: 05/07/2022 13:11 [facility] OS ID: [id number] [address] [place], [place], [address] LOINC: Test Value Unit [...] Completed: 05/07/2022 13:31 LOINC: \TM00\\12PI\\DRAo\\BM09\\PGN o\\MRB2\ \MRHo\ [facility] [address] [place] [address] ---------NAME--------- NUMBER SEX AGE ADMIT DISC. XRAY# F/C TYPE SUJEY FAGAN [id number] F 81 05/07/22 [id number] MB E/R DATE OF : 1940 M/R# [id number] PH#: [phone] ED-1 \MRHx\ LOCATION: TRANSCRIBED: 05/07/22 13:28 [place] [id number] COMPLETED:05/07/22 13:Feb {REASON FOR TEST: SYNCOPE PHYSICIAN: [...] : 05/07/2022 13:34 LOINC: \TM00\\12PI\\DRAo\\BM09\\PGN o\\MRB2\ \MRHo\ [facility] [address] [place] [address] ---------NAME--------- NUMBER SEX AGE ADMIT DISC. XRAY# F/C TYPE SUJEY FAGAN [id number] F 81 05/07/22 075327 MB E/R DATE OF : 1940 M/R# [id number] PH#: [phone] ED-1 \MRHx\ LOCATION: TRANSCRIBED: 05/07/22 13:04 XR CHEST 1V PORT [id number] COMPLETED:05/07/22 13:Feb {REASON FOR CHEST: TRAUMA PHYSICIAN: [...] Smoking History Current every day smoker 01/31/[id number] Sex Female Vital Signs Vital Sign Value Unit Witt Value Witt Unit Date/Time Recent/Initial? Code Code System Body Mass Index 18.02 kg/m2 05/07/2022 11:00 Initial 23018 -5 LOINC Systolic Blood Pressure 143 mm[Hg] [...] Saturation 96 % 2022 12:54 Most Recent 90504 -5 LOINC O2 Saturation 99 % 2022 11:00 Initial 52017 -5 LOINC Pulse 64.0 /min 05/08/2022 12:54 Most Recent 8867- 4 LOINC Pulse 68.0 /min 05/07/2022 11:00 Initial 8867- 4 LOINC Respiration 18 /min 05/08/19 12:54 Most Recent 9279- 1 LOINC Respiration 18 /min 05/07/19 11:00 Initial 9279- 1 LOINC Temperature 36.7 Latisha 98.0 F 05/08/19 12:54 Most Recent 8310- 5 LOINC Temperature 36.5 Latisha 97.7 F 05/07/19 11:00 Initial 8310- 5 INC Weight 47.63 kg 105.00 lbs 05/07/2022 11:00 Initial 52641 -7 [facility] Medications Medication Start Date End Date Route Frequency Dose Code Code System Medication Instructions Home Meds Acetaminophen 500MG Oral Capsule 05/08/2022 Unknown ORAL DAILY 1000 MILLIGRAMS 726022 RxNorm TAKE 1000 MILLIGRAMS ORAL DAILY Atorvastatin Calcium 20MG Oral Tablet 05/08/2022 Unknown ORAL AT BEDTIME 20 MILLIGRAMS 144856 RxNorm TAKE 20 MILLIGRAMS ORAL AT BEDTIME Cranberry 500MG Oral Capsule 05/08/2022 Unknown ORAL AT BEDTIME 500 MILLIGRAMS 5443749 RxNorm TAKE 500 MILLIGRAMS ORAL AT BEDTIME Docusate 100MG Oral Capsule, Liquid Filled 05/08/2022 Unknown ORAL TWICE A DAY 100 MILLIGRAMS 1455253 RxNorm TAKE 100 MILLIGRAMS ORAL TWICE A DAY Donepezil HCl 10MG Oral Tablet 05/08/2022 Unknown ORAL DAILY 10 MILLIGRAMS 882940 RxNorm TAKE 10 MILLIGRAMS ORAL DAILY Ibuprofen 200MG Oral Tablet 05/08/2022 Unknown ORAL AT BEDTIME 400 MILLIGRAMS 982878 RxNorm TAKE 400 MILLIGRAMS ORAL AT BEDTIME Lisinopril 10MG Oral Tablet 05/08/2022 Unknown ORAL DAILY 10 MILLIGRAMS 781342 RxNorm TAKE 10 MILLIGRAMS ORAL DAILY Mirtazapine 7.5MG Oral Tablet 05/08/2022 Unknown ORAL AT BEDTIME 7.5 MILLIGRAMS 507558 RxNorm TAKE 7.5 MILLIGRAMS ORAL AT BEDTIME Vitamin B12 1000MCG Oral Tablet 05/08/2022 Unknown ORAL DAILY 1000 MCG 013278 RxNorm TAKE 1000 MCG ORAL DAILY Vitamin C 1000MG Oral Tablet 05/08/2022 Unknown ORAL DAILY 1000 MILLIGRAMS 886242 RxNorm TAKE 1000 MILLIGRAMS ORAL DAILY Vitamin D3 10 MCG Oral Capsule, Liquid Filled 05/08/2022 Unknown ORAL DAILY 10 MCG RxNorm TAKE 10 MCG ORAL DAILY Cefuroxime 250MG Oral Tablet 05/08/2022 Unknown ORAL TWICE A DAY 2 TABLET 030626 RxNorm TAKE 2 TABLET ORAL TWICE A DAY Nitrofurantoin 100MG Oral Capsule 07/25/2022 Unknown ORAL EVERY 12 HOURS 1 CAPSULE 4566962 RxNorm TAKE 1 CAPSULE ORAL EVERY 12 [...] Date Status Code Code System SYNCOPE active 134550447 SNOMED-CT UTI active 76359253 SNOMED-CT CONTUSION OF HEAD, INITIAL ENCOUNTER active 036173660 SNOMED-CT HYPERTENSION 05/07/2022 resolved 53812218 SNOMED -CT URINARY TRACT INFECTION 05/07/2022 resolved 81779 005 SNOMED-CT Allergies and Adverse Reactions Allergy Substance Reaction Severity Start Date Concern Status Co de Code System No Known Drug Allergies Active 895094262 SNOMED-CT Plan of Treatment Plan Discharge home Referral to Urology & PCP local to [place] Prescription for Cefuroxime for further treatment Tylenol/Acetaminophen [...] Date Inactive Da te Discharge Summary Notes [facility] OS 05/08/2022 12:39 All Demographics Patient Name Age Sex Visit Number Admission Date/Time Attending Physician Date of Service Room and Bed Emergency Contact GRACIA RM 1940 81 years Female [id number] 05/07/2022 14:50 EDWARD Bahman MCNAMARA 05/07/2022 5 AMRIT RM - [id number] 05/08/2022 12:34 Discharge Date: 05/08/22 Reason for [...] one was 2 months ago while in [place], patient's home. Patient has been unable to [...] Referral to Urology & PCP local to [place] Prescription for Cefuroxime for further treatment Tylenol/Acetaminophen [...] 250MG Oral Tablet History and Physical Notes [facility] OS 05/07/2022 14:29 All Demographics Patient Name Age Sex Visit Number Admission Date/Time Attending Physician Date of Service Room and Bed Emergency Contact GRACIA RM 1940 81 years Female [id number] 05/07/2022 10:55 BONNIE MCNAMARA 05/07/2022 ED-1 AMRIT RM - [id number] 05/07/2022 14:25 Admission Date: Date of Service: 05/07/2022 Reason for Admission: Chief Complaint: FALL Code Status: full Attending Physician: Dr. JR uDmont Primary Care Physician: Primary Care Physician: UNKNOWN [...] apparent distress. SKIN: No rashes. No jaundice. [place] and warm with good turgor. No petechia, [...] 1,000 ML IV SOLN, CONTINUOUS Progress Notes [facility] OS 05/08/2022 12:33 All Demographics Patient Name Age Sex Visit Number Admission Date/Time Attending Physician Date of Service Room and Bed Emergency Contact GRACIA RM 1940 81 years Female [id number] 05/07/2022 14:50 EDWARD Bahman MCNAMARA 05/07/2022 5 SUJEY AMRIT - [id number] 05/08/2022 12:33 Admission date: 05/07/22 Diagnosis: Syncope, [...] was 2 months ago. They live in [place] and have no PCP/urologists here in [place]. Patient would like to go home, agrees [...]
--- OUTSIDE RECORDS SUMMARY | 2024-05-05 16:09 | XMS_ITS ---
Author Organization Unknown Address [address] [place] [address] Phone Care Team Providers Care Taffy Candy Maker Name Role Phone JOHANA DUGGAN Registered Nurse Unavailable BUTCH WHATLEY Attending Unavailable WILLIAM KELLEY Unavailable UNKNOWN Primary Unavailable Results URINALYSIS W/REFLEX TO CULTU RE - Collect Date/Time: 07/25/2022 17:15 [facility] H OS ID: [id number] [address] [place], [place], [address] LOINC: Test Value Unit Reference Range Code [...] PT/INR/PTT - Collect Date/Ti me: 07/25/2022 14:37 [facility] H OS ID: [id number] [address] [place], [place], [address] LOINC: Test Value Unit Reference Range Code Code System Flag PROTIME 9.6 Secs L=9.0 H=11.2 INR 1.0 L=0.9 H=1.1 PTT 22.5 Secs L=22.0 H=30.0 PCR SARS COV-2_FLU_RSV - Col lect Date/Time: 07/25/2022 14:37 [facility] H OS ID: [id number] [address] [place], [place], [address] LOINC: Test Value Unit Reference Range Code Code System Flag SARS SPECIMEN SOURCE Nasopharyngeal RSV NEGATIVE NORMAL: NEGATIVE INFLUENZA A NEGATIVE NORMAL: NEGATIVE INFLUENZA B NEGATIVE NORMAL: NEGATIVE SARS COVID NEGATIVE NORMAL: NEGATIVE CBC W/AUTO DIFF - Collect Da te/Time: 07/25/2022 14:37 [facility] H OS ID: [id number] [address] [facility] [address] LOINC: Test Value Unit Reference Range Code [...] NO CMP - Collect Date/Time: 07/2022 14:37 [facility] OS ID: [id number] [address] [place], [place], [address] LOINC: Test Value Unit Reference Range Code [...] ompleted: 07/25/2022 14:54 LOINC: \TM00\\12PI\\DRAo\\BM09\\PGN o\\MRB2\ \MRHo\ [facility] [address] [place] [address] ---------NAME--------- NUMBER SEX AGE ADMIT DISC. XRAY# F/C TYPE SUJEY FAGAN [id number] F 82 07/25/22 [id number] MB E/R DATE OF : 1940 M/R# [id number] PH#: [phone] ED-3 \MRHx\ LOCATION: TRANSCRIBED: 07/25/22 14:53 [place] [id number] COMPLETED:07/25/22 14:54 NOV 29504 {SPINE PROCED REASON: FALL PHYSICIAN: Ariana THOMAS [...] Completed: 07/25/2022 14:46 LOINC: \TM00\\12PI\\DRAo\\BM09\\PGN o\\MRB2\ \MRHo\ [facility] [address] [facility] [place] [address] ---------NAME--------- NUMBER SEX AGE ADMIT DISC. XRAY# F/C TYPE SUJEY FAGAN [id number] F 82 07/25/22 [id number] MB E/R DATE OF : 1940 M/R# [id number] PH#: [phone] ED-3 \MRHx\ LOCATION: TRANSCRIBED: 07/25/22 14:44 [place] [id number] COMPLETED:07/25/22 14:46 NOV 03863 {REASON FOR TEST: EXTERNAL INJURY/TRAUMA PHYSICIAN: Ariana [...] Completed: 07/25/2022 14:42 LOINC: \TM00\\12PI\\DRAo\\BM09\\PGN o\\MRB2\ \MRHo\ [facility] [address] [place] [address] ---------NAME--------- NUMBER SEX AGE ADMIT DISC. XRAY# F/C TYPE SUJEY FAGAN [id number] F 82 07/25/22 [id number] MB E/R DATE OF : 1940 M/R# [id number] #: [phone] ED-3 \MRHx\ LOCATION: TRANSCRIBED: 07/25/22 14:37 XR CHEST 1 VIEW [id number] COMPLETED:07/25/22 14:42 NOV 76617 {REASON FOR CHEST: COUGH PHYSICIAN: Ariana THOMAS [...] Smoking History Current every day smoker 01/31/[address] Sex Female Vital Signs Vital Sign Value Unit [place] Value [place] Unit Date/Time Recent/Initial? Code Code System Body Mass Index 17.74 kg/m2 07/25/2022 14:12 Initial 89582 -5 LOINC Systolic Blood Pressure 141 mm[Hg] [...] Saturation 95 % 2022 18:08 Most Recent 22353 -5 LOINC O2 Saturation 97 % 2022 14:12 Initial 96138 -5 LOINC Pulse 89.0 /min 07/25/2022 18:08 Most Recent 8867- 4 LOINC Pulse 63.0 /min 07/25/2022 14:12 Initial 8867- 4 LOINC Respiration 16 /min 07/26/19 18:08 Most Recent 9279- 1 [facility] Respiration 16 /min 07/26/19 14:12 Initial 9279- 1 [facility] Temperature 36.3 Latisha 97.4 F 07/26/19 14:12 Initial 8310- 5 [facility] Weight 47.63 kg 105.00 lbs 07/25/2022 14:12 Initial 84774 -7 [facility] Medications Medication Start Date End Date Route Frequency Dose Code Code System Medication Instructions Home Meds Acetaminophen 500MG Oral Capsule 05/08/2022 Unknown ORAL DAILY 1000 MILLIGRAMS 608914 RxNorm TAKE 1000 MILLIGRAMS ORAL DAILY Atorvastatin Calcium 20MG Oral Tablet 05/08/2022 Unknown ORAL AT BEDTIME 20 MILLIGRAMS 492113 RxNorm TAKE 20 MILLIGRAMS ORAL AT BEDTIME Cranberry 500MG Oral Capsule 05/08/2022 Unknown ORAL AT BEDTIME 500 MILLIGRAMS 2756536 RxNorm TAKE 500 MILLIGRAMS ORAL AT BEDTIME Docusate 100MG Oral Capsule, Liquid Filled 05/08/2022 Unknown ORAL TWICE A DAY 100 MILLIGRAMS 2002762 RxNorm TAKE 100 MILLIGRAMS ORAL TWICE A DAY Donepezil HCl 10MG Oral Tablet 05/08/2022 Unknown ORAL DAILY 10 MILLIGRAMS 128931 RxNorm TAKE 10 MILLIGRAMS ORAL DAILY Ibuprofen 200MG Oral Tablet 05/08/2022 Unknown ORAL AT BEDTIME 400 MILLIGRAMS 217952 RxNorm TAKE 400 MILLIGRAMS ORAL AT BEDTIME Lisinopril 10MG Oral Tablet 05/08/2022 Unknown ORAL DAILY 10 MILLIGRAMS 128994 RxNorm TAKE 10 MILLIGRAMS ORAL DAILY Mirtazapine 7.5MG Oral Tablet 05/08/2022 Unknown ORAL AT BEDTIME 7.5 MILLIGRAMS 703347 RxNorm TAKE 7.5 MILLIGRAMS ORAL AT BEDTIME Vitamin B12 1000MCG Oral Tablet 05/08/2022 Unknown ORAL DAILY 1000 MCG 837019 RxNorm TAKE 1000 MCG ORAL DAILY Vitamin C 1000MG Oral Tablet 05/08/2022 Unknown ORAL DAILY 1000 MILLIGRAMS 190817 RxNorm TAKE 1000 MILLIGRAMS ORAL DAILY Vitamin D3 10 MCG Oral Capsule, Liquid Filled 05/08/2022 Unknown ORAL DAILY 10 MCG RxNorm TAKE 10 MCG ORAL DAILY Cefuroxime 250MG Oral Tablet 05/08/2022 Unknown ORAL TWICE A DAY 2 TABLET 627117 RxNorm TAKE 2 TABLET ORAL TWICE A DAY Nitrofurantoin 100MG Oral Capsule 07/25/2022 Unknown ORAL EVERY 12 HOURS 1 CAPSULE 5917928 RxNorm TAKE 1 CAPSULE ORAL EVERY 12 [...] Date Status Code Code System SYNCOPE active 426284474 SNOMED-CT UTI active 58018506 SNOMED-CT CONTUSION OF HEAD, INITIAL ENCOUNTER active 352715834 SNOMED-CT HYPERTENSION 05/07/2022 resolved 89542883 SNOMED -CT URINARY TRACT INFECTION 05/07/2022 resolved 77817 005 SNOMED-CT Allergies and Adverse Reactions Allergy Substance Reaction Severity Start Date Concern Status Co de Code System No Known Drug Allergies Active 398719839 SNOMED-CT Plan of Treatment No Data Found Personal Care Team Section Performer Name Performer Role Active Date Inactive Da barak
--- OUTSIDE RECORDS SUMMARY | 2024-05-05 16:10 | XMS_ITS ---
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 Code Code System Body Mass Index 17.64 kg/m2 08/04/2022 15:59 Initial 80634 -5 [facility] Systolic Blood Pressure 138 mm[Hg] 08/04/2022 16:04 Initial 8480- 6 [facility] Diastolic Blood Pressure 91 mm[Hg] 08/04/2022 16:04 Initial 8462- 4 [facility] Body Surface Area 1.48 m2 08/04/2022 15:59 Initial 3140- 1 [facility] Height 165.100 0 cm 65.00 in 08/04/2022 15:59 Initial 8302- 2 INC O2 Saturation 96 % 2022 15:59 Initial 72566 -5 [facility] Pulse 63.0 /min 08/04/2022 15:59 Initial 8867- 4 [facility] Respiration 16 /min 08/05/19 15:59 Initial 9279- 1 [facility] Temperature 36.7 Latisha 98.1 F 08/05/19 23 15:59 Initial 8310- 5 [facility] Weight 48.08 kg 106.00 lbs 08/04/2022 15:59 Initial 59595 -7 [facility] Medications Medication Start Date End Date Route Frequency Dose Code Code System Medication Instructions Home Meds Acetaminophen 500MG Oral Capsule 05/08/2022 Unknown ORAL DAILY 1000 MILLIGRAMS 246903 RxNorm TAKE 1000 MILLIGRAMS ORAL DAILY Atorvastatin Calcium 20MG Oral Tablet 05/08/2022 Unknown ORAL AT BEDTIME 20 MILLIGRAMS 707345 RxNorm TAKE 20 MILLIGRAMS ORAL AT BEDTIME Cranberry 500MG Oral Capsule 05/08/2022 Unknown ORAL AT BEDTIME 500 MILLIGRAMS 5170099 RxNorm TAKE 500 MILLIGRAMS ORAL AT BEDTIME Docusate 100MG Oral Capsule, Liquid Filled 05/08/2022 Unknown ORAL TWICE A DAY 100 MILLIGRAMS 3035262 RxNorm TAKE 100 MILLIGRAMS ORAL TWICE A DAY Donepezil HCl 10MG Oral Tablet 05/08/2022 Unknown ORAL DAILY 10 MILLIGRAMS 592404 RxNorm TAKE 10 MILLIGRAMS ORAL DAILY Ibuprofen 200MG Oral Tablet 05/08/2022 Unknown ORAL AT BEDTIME 400 MILLIGRAMS 638761 RxNorm TAKE 400 MILLIGRAMS ORAL AT BEDTIME Lisinopril 10MG Oral Tablet 05/08/2022 Unknown ORAL DAILY 10 MILLIGRAMS 807661 RxNorm TAKE 10 MILLIGRAMS ORAL DAILY Mirtazapine 7.5MG Oral Tablet 05/08/2022 Unknown ORAL AT BEDTIME 7.5 MILLIGRAMS 375368 RxNorm TAKE 7.5 MILLIGRAMS ORAL AT BEDTIME Vitamin B12 1000MCG Oral Tablet 05/08/2022 Unknown ORAL DAILY 1000 MCG 733718 RxNorm TAKE 1000 MCG ORAL DAILY Vitamin C 1000MG Oral Tablet 05/08/2022 Unknown ORAL DAILY 1000 MILLIGRAMS 037159 RxNorm TAKE 1000 MILLIGRAMS ORAL DAILY Vitamin D3 10 MCG Oral Capsule, Liquid Filled 05/08/2022 Unknown ORAL DAILY 10 MCG RxNorm TAKE 10 MCG ORAL DAILY Cefuroxime 250MG Oral Tablet 05/08/2022 Unknown ORAL TWICE A DAY 2 TABLET 495570 RxNorm TAKE 2 TABLET ORAL TWICE A DAY Nitrofurantoin 100MG Oral Capsule 07/25/2022 Unknown ORAL EVERY 12 HOURS 1 CAPSULE [id number] RxNorm TAKE 1 CAPSULE ORAL EVERY 12 [...] Date Status Code Code System SYNCOPE active 736981372 SNOMED-CT UTI active 22714135 SNOMED-CT CONTUSION OF HEAD, INITIAL ENCOUNTER active 702514152 SNOMED-CT HYPERTENSION 05/07/2022 resolved 51160229 SNOMED -CT URINARY TRACT INFECTION 05/07/2022 resolved 23594 005 SNOMED-CT Allergies and Adverse Reactions Allergy Substance Reaction Severity Start Date Concern Status Co de Code System No Known Drug Allergies Active [id number] SNOMED-CT Plan of Treatment Plan: follow-up with PCP call for appointment continue current medications return for increased problem Ordered & Completed Meds Table: No Current Medications Available Discharge Medications: Personal Care Team Section Performer Name Performer Role Active Date Inactive Da barak
--- OUTSIDE RECORDS SUMMARY | 2024-05-05 16:10 | XMS_ITS | Clinical Summary ---
Author Organization [employer] [facility] Address [place], [place] [address] Care Team Providers Care Cutter Banana Room Name Role Phone Dayana Diaz Primary Care Provider Allergies No known active allergies Medications CRANBERRY ORAL Chew 1 tablet (500 mg) by mouth twice daily at 8 am and 8 pm 1 capsule 9 Active acetaminophen (TYLENOL EXTRA STRGTH) 500 mg tablet Take 500 mg by mouth every 4 hours if needed for Pain. As needed. Active docusate (COLACE) 100 mg capsule Take 100 mg by mouth two times daily. Active Lactobacillus Acidophilus cap Take 1 Capsule by mouth once daily in the morning. 600 billion units. Active mirtazapine (REMERON) 7.5 mg tabletIndicatio ns:Insomnia, idiopathic,Unde rweight Take 1 Tablet (7.5 mg) by mouth at bedtime. 90 Tablet 4 Active lisinopriL (PRINIVIL; ZESTRIL) 5 mg tabletIndicatio ns:HTN (hypertension) TAKE ONE TABLET BY MOUTH EVERY DAY 90 Tablet 4 Active psyllium powd Mix 2 teaspoonfuls in liquid and take by mouth every day for constipation. Active estradioL (ESTRACE) 0.01% (0.1 mg/g) vaginal creamIndication s:atrophic vaginitis associated with menopause Insert 1 gram vaginally 2 times per week. Active Active Problems Problem Noted Date Diagnosed Date Recurrent UTI 03/31/2024 Infection due to ESBL-producing Escherichia coli 02/01/2024 Sepsis 01/29/2024 Complicated UTI (urinary tract infection) 2023 Mild protein-calorie malnutrition 07/20/2023 Vascular dementia without behavioral disturbance 02/24/2021 HTN (hypertension) 02/24/2021 Unexplained weight loss 01/10/2021 Chronic obstructive pulmonary disease 01/10/2021 Chronic constipation 01/10/2021 Gait abnormality 03/15/2020 Cervical stenosis of spine 03/15/2020 Anxiety 08/13/2018 Recurrent UTI 08/13/2018 Essential hypertension 08/13/2018 Collagenous colitis 01/23/2018 Poor appetite 09/20/2017 Chronic diarrhea 09/20/2017 Memory difficulty 09/20/2017 Age-related osteoporosis wit hout current pathological fracture 03/28/2017 Chronic bilateral low back pain without sciatica 03/28/2017 Hemangioma of liver 01/04/2017 Refused influenza vaccine 12/28/2015 Ductal carcinoma in situ (DCIS) of left breast 0 10/11/2015 Tubular adenoma of colon 08/21/2013 Excess ear wax 07/28/2013 Inflammatory bowel diseases (IBD) 04/26/2011 Mixed hyperlipidemia 10/04/2009 Onychomycosis 02/21/2008 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) 06/07/2007 Symptomatic menopausal or female climacteric sta karla 04/23/2006 Tobacco use disorder 04/23/2006 History of Augustine's esophagus Epigastric abdominal pain Resolved Problems Problem Noted Date Diagnosed Date Resolved Date Acute cystitis without hematuria 01/29/2024 01/29/2024 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 [address] [place] [address] Keshia Greene, OTONIEL Primary RN Care Management; Hospital F/U ([facility]-04/03) 03/30/2024 10:17 PM [employer] - 04/03/2024 10:55 AM [employer] Hospital Encounter [facility] [address] [place] [address] Rajwinder Albright, DAVID Garcia, MD Jakob Velez, Hao Caruso, Shannon Fitzpatrick MD Jezeski, Lilibeth Platt, LANDMAN Acute cystitis without hematuria (Primary Dx); Generalized weakness; Cough, unspecified type; History of ESBL E. coli infection Discharge Disposition: Home Health 03/30/2024 Travel from Last 3 Months Immunizations Name Administration Dates Next Due COVID-19 vaccine ([employer]-Bio NTech 30mcg/0.3mL) 12YO+ BIVALENT PF, MDV 01/19/2022 COVID-19 vaccine (Pfizer-Bio NTech 30mcg/0.3mL) PF, MDV 02/09/2021,07/08/2020,06/10/2020 Influenza, High-dose Inactivated 03/27/2018 Influenza, IIV3 (Age 6-35 mos) 02/14/2010 Influenza, IIV3 (Age >=3 years) 02/13/2008,02/27 Influenza, Inactivated AIIV4 (Age 65+ Years) Preserv Free 01/19/2023,01/19/2022,12/30/2020,2019 Influenza, Inactivated IIV3 (Age 65+ Years) Preserv Free 01/09/2019,02/07/2017 Pneumococcal Poly,23-Valent (Pneumovax) 08/08/2010,04/26/2000 Pneumococcal conj 13-Valent (Prevnar 13) 04/07/2015 Td (Age >=7 Years) 12/27/1995 Td, Preservative Free (age > = 7 Years) 09/02/2015,05/31/2006 Zoster (Shingrix-RZV, recombinant) 01/31/2022, Family History Medical History Relation Name Comments Hypertension Brother Hypertension Daughter 1 Jing Rheum arthritis Daughter 1 Jing Hypertension Daughter 2 Clotting disorder Father from the s troke Stroke Father Unknown Maternal Aunt Unknown Maternal Grandfather Unknown Maternal Grandmother Unknown Maternal Uncle Stroke Mother Unknown Paternal Aunt Unknown Paternal Grandfather Unknown Paternal Grandmother Unknown Paternal Uncle Hyperlipidemia Son 1 Unknown Son 2 Cancer-breast No Family History Relation Name Status Comments Brother Alive Daughter 1 Jing Alive Daughter 2 Alive Father (Age 87) Maternal Aunt Maternal Grandfather Maternal Grandmother Maternal Uncle Mother (Age 82) Paternal Aunt Paternal Grandfather Paternal Grandmother Paternal Uncle Son 1 Alive Son 2 Alive Social History Tobacco Use Types Packs/Day Years Used Date Smoking Tobacco: Former Cigarettes 0.5 66.2 0 04/23/1957 - 06/20/2023 Passive Smoke Exposure: Past Smokeless Tobacco: Never Tobacco Cessation:Counseling Given: Not Answered Passive Exposure Comments:dad smoked cigars in child marin life Alcohol Use Standard Drinks/Week Comments Not Currently 0 (1 standard drink = 0.6 oz pur e alcohol) [facility] Utilities Answer Date Recorded Do you have trouble paying f or utilities (for example, heat, electricity, water, phone)? Yes 04/02/2024 PHQ-2 Answer Date Recorded PHQ-2 TOTAL SCORE 3 08/25/2022 Social Connections Answer Date Recorded Do you often feel lonely or isolated from those around you? 0 04/02/2024 Financial Resource Strain Answer Date R ecorded Difficulty of Paying Living Expenses 3 01/29/2024 Difficulty of Paying Living Expenses Not on file 01/29/2024 Food Insecurity Answer Date Recorded Do you worry your food will run out before you are able to buy more? 1 04/02/2024 Transportation Needs Answer Date Record ed Does lack of transportation keep you from medica l appointments? 1 04/02/2024 Does lack of transportation keep you from work, meetings or getting things that you need? 1 04/02/2024 Housing Stability Answer Date Recorded What is your housing situation today? 1 04/02/2024 Interpersonal Safety Answer Date Record ed Are you being hit, kicked, p ushed or yelled at (see row info)? No 03/30/2024 Interpersonal Safety Abuse 12 - 18 Not on file 03/30/2024 Interpersonal Safety Ambulatory Vulnerability No t on file 03/30/2024 Comments No Sex and Gender Information Value Date Recorded Sex Assigned at Not on file Legal Sex Female 5:23 AM [employer] Gender Identity Not on file Sexual Orientation Not on file Occupation Industry Job Start Date Job End Date [employer] Not on file Not on file Not on file Obstetrics History Para Term AB IAB SAB Ectopic Multiple Livin g Live Births 4 4 Date Outcome GA Total Labor Labor/2nd/3rd Weight Sex Type Anes PTL Coni A1 A5 Name Clin Last Filed Vital Signs Vital Sign Reading Time Taken Comments Blood Pressure 155/85 04/03/2024 7:42 AM [employer] Pulse 71 04/03/2024 7:42 AM [employer] Temperature 36.8 C (98.3 F) 04/03/2024 7:42 AM [employer] Respiratory Rate 16 04/03/2024 7:42 AM [employer] Oxygen Saturation 93% 04/03/2024 7:42 AM [employer] Inhaled Oxygen Concentration - - Weight 54.5 kg (120 lb 3.2 oz) 03/30/2024 10:22 PM [employer] Height 162.6 cm (5' 4) 03/30/2024 10:22 PM [employer] Body Mass Index 20.63 03/30/2024 10:22 PM [employer] Plan of Treatment Health Maintenance Due Date Last Done Comments Tdap [birth year]26/1951 RSV vaccine for adults or (1 - 1-dose 75+ series) 06/26/2014 Depression screening for age 12+ 08/26/2023 08/25/2022, 08/25/2022, 08/23/2020, Additional history exists Medicare Wellness for age 65+ 08/26/2023, 08/23/2020, 08/08/2018, Additional history exists COVID-19 vaccine series ( season) 2023 01/19/2022, 02/09/2021, 07/08/2020, Additional history exists Influenza for age 65+ 12/23/2023 01/19/2023 , 01/19/2022, 12/30/2020, Additional history exists BMI (ht and wt on same day) for age 18+ 01/11/2024 01/10/2023, 08/25/2022, 11/02/2021, Additional history exists Tetanus booster 09/01/2025 09/02/2015, 11/2006, 12/27/1995 Pneumococcal series for age 50+ Completed 04/07/2015, 08/08/2010, 04/26/2000 DEXA/DXA scan for age 65+ Completed 2019, 04/02/2017, 09/21/2008 Zoster (shingles) series for age 50+ Completed 01/31/2022, 07/18/2021 Procedures Procedure Name Priority Date/Time Associated Diagnosis Comments HEMOGLOBIN Early AM 04/02/2024 6:24 AM [employer] WHITE BLOOD COUNT Early AM 04/02/2024 6:2 4 AM [employer] CREATININE Early AM 04/02/2024 6:24 AM [employer] POTASSIUM Early AM 04/02/2024 6:24 AM [employer] SODIUM Early AM 04/02/2024 6:24 AM [employer] WHITE BLOOD COUNT Early AM 04/01/2024 6:2 2 AM [employer] HEMOGLOBIN Early AM 04/01/2024 6:22 AM [employer] CREATININE Early AM 04/01/2024 6:22 AM [employer] POTASSIUM Early AM 04/01/2024 6:22 AM [employer] SODIUM Early AM 04/01/2024 6:22 AM [employer] HEMOGLOBIN Early AM 03/31/2024 6:21 AM [employer] WHITE BLOOD COUNT Early AM 03/31/2024 6:2 1 AM [employer] MAGNESIUM Early AM 03/31/2024 6:21 AM [employer] CREATININE Early AM 03/31/2024 6:21 AM [employer] POTASSIUM Early AM 03/31/2024 6:21 AM [employer] SODIUM Early AM 03/31/2024 6:21 AM [employer] HCHG SUSCEPTIBILITY AEROBIC CALIX STAT 03/30/2024 11:35 PM [employer] URINALYSIS MICROSCOPIC STAT 11:35 PM [employer] URINE CULTURE STAT 03/30/2024 11:35 PM [employer] UA W/ SEDIMENT EXAM REFLEXED PER CRITERIA STAT 03/30/2024 11:35 PM [employer] XR CHEST 1 VIEW PORTABLE STAT 03/30/2024 11:11 PM [employer] CBC WITH AUTO DIFFERENTIAL STAT 03/30/2024 11:01 PM [employer] PROCALCITONIN STAT 03/30/2024 11:01 PM [employer] BASIC METABOLIC PANEL STAT 03/30/2024 11:01 PM [employer] CBC WITH AUTO DIFFERENTIAL STAT 03/30/2024 11:01 PM [employer] LACTATE VENOUS STAT 03/30/2024 11:01 PM [employer] BLOOD CULTURE STAT 03/30/2024 11:01 PM [employer] BLOOD CULTURE STAT 03/30/2024 11:01 PM [employer] INFLUENZA A/B PCR STAT 03/30/2024 11: 01 PM [employer] COVID-19 MOLECULAR Today 03/30/2024 11 :01 PM [employer] XR DXA BONE DENSITY 2 SITES AXIAL Routine 02/25/2020 3:20 PM [employer] Age-related osteoporosis without current pathological fracture Asymptomatic postmenopausal state from Last 3 Months or Most Recently Relevant to Health Maintenance Results * WHITE BLOOD COUNT (04/02/2024 6:24 AM [employer]) Only the most recent of3 resultswithin the time period is included. WHITE BLOOD COUNT 6.4 4.5 - 11.0 thou/cu mm 04/02/2024 6:44 AM [employer] [facility] Blood BLOOD SPECIMEN / Unknown Venipuncture / Unknown 04/02/2024 6:24 AM [employer] 04/02/2024 6:27 AM [employer] [facility] [employer] HEMATOLOGY Stefany l Result Performing Organization Address [facility]/ZIP Co de Phone Number [facility] [address] [place] [address] * (ABNORMAL) HEMOGLOBIN (04/02/2024 6:24 AM [employer]) Only the most recent of3 resultswithin the time period is included. Pathologist [facility] HEMOGLOBIN 11.5(L) 12.0 - 16.0 g/dL 04/02/2024 6:44 AM [employer] [facility] MCV 99 80 - 100 fL 04/02/2024 6:44 AM [facility] Blood BLOOD SPECIMEN / Unknown Venipuncture / Unknown 04/02/2024 6:24 AM [employer] 04/02/2024 6:27 AM [employer] [facility] [employer] DO HEMATOLOGY Stefany l Result [facility] [address] [place], [place] [id number] * SODIUM (04/02/2024 6:24 AM [employer]) Only the most recent of3 resultswithin the time period is included. SODIUM 137 136 - 145 mmol/L 04/02/2024 6:49 AM [employer] [facility] Blood BLOOD SPECIMEN / Unknown Venipuncture / Unknown 04/02/2024 6:24 AM [employer] 04/02/2024 6:27 AM [employer] DO CHEMISTRY Stefany l Result Performing Organization Address City/[facility]/ZIP Co de Phone Number [facility] [address] [place] [address] * POTASSIUM (04/02/2024 6:24 AM [employer]) Only the most recent of3 resultswithin the time period is included. POTASSIUM 4.1 3.5 - 5.1 mmol/L 04/02/2024 6:49 AM [facility] Blood BLOOD SPECIMEN / Unknown Venipuncture / Unknown 04/02/2024 6:24 AM [employer] 04/02/2024 6:27 AM [employer] [facility] [employer] CHEMISTRY Stefany l Result Performing Organization Address City/[facility] de Phone Number [facility] [address] [place] [address] * (ABNORMAL) CREATININE (04/02/2024 6:24 AM [employer]) Only the most recent of3 resultswithin the time period is included. eGFR 76(L) >90 mL/min/1.7 3m2 04/02/2024 6:49 AM [facility] Comment:As of 2021, eG FR is calculated by the CKD-EPI creatinine equation without race adjustment. eGFR can be influenced by muscle mass, exercise, and diet. The reported eGFR is an estimation only and is only applicable if the renal function is stable. CREATININE 0.77 0.50 - 0.90 mg/dL 04/02/2024 6:49 AM [facility] Blood BLOOD SPECIMEN / Unknown Venipuncture / Unknown 04/02/2024 6:24 AM [employer] 04/02/2024 6:27 AM [employer] CHEMISTRY Stefany l Result Performing Organization Address [facility] Co de Phone Number [facility] [address] [place] [address] * MAGNESIUM (03/31/2024 6:21 AM [employer]) [facility] MAGNESIUM 1.9 1.6 - 2.4 mg/dL 03/31/2024 6:49 AM [employer] [facility] Blood BLOOD SPECIMEN / Unknown Venipuncture / Unknown 03/31/2024 6:21 AM [employer] 03/31/2024 6:28 AM [employer] us Lavern Garcia MD CHEMISTRY Final Resu lt Performing Organization Address [facility] de Phone Number [facility] [address] [place] [address] * (ABNORMAL) SUSCEPTIBILITY AEROBIC BACTERIA (03/30/2024 11:35 PM [employer]) [facility] SUSC, AEROBIC BACTERIA SEE COMMENTS( A) 04/09/2024 11:26 AM [employer] [facility] Comment: RESULT: FINAL 04/09/2024 1126 SOURCE: URINE, Source = Urine. Organism ID if applicable= E. coli. Antimicrobials requested= Fosfomycin. SUSCEPTIBILITY, AEROBIC, ERI FINAL ESCHERICHIA COLI Organism identified by client. Organism ESCHERICHIA COLI Antibiotic ERI (mcg/mL) Interpretation Fosfomycin <=64 S S=SUSCEPTIBLE I=INTERMEDIATE R=RESISTANT NS=NONSUSCEPTIBLE SDD=SUSCEPTIBLE DOSE DEPENDENT Test Performed by: [address] [address] Maintenance Coordinator: Maris Glynn Ph.D.; CLIA# [id number] Urine URINE SPECIMEN / Unknown Non-Blood / Unknown 03/30/2024 11:35 PM [employer] 04/04/2024 11:22 AM [employer] us Rajwinder HERNANDEZ MICROBIOLOGY Final Result [address] [address], [place] [phone] * (ABNORMAL) URINALYSIS MICROSCOPIC (03/30/2024 11:35 PM [employer]) RBC 0-2 0-2, None Seen /HPF 03/30/2024 11:51 PM [facility] WBC >100(A) 0-2, 3-5, None Seen /HPF 03/30/2024 11:51 PM [facility] BACTERIA Many(A) None Seen, Rare, Few Bacteria/ HPF 03/30/2024 11:51 PM [facility] EPITHELIAL CELLS Few None Seen, Few Epi/HPF 03/30/2024 11:51 PM [facility] YEAST Present(A) (none) 03/30/2024 11:51 PM [facility] WHITE CELL CLUMPS Present(A) (none) 03/30/2024 11:51 PM [facility] Urine URINE SPECIMEN / Unknown Non-Blood / Unknown 03/30/2024 11:35 PM [employer] 03/30/2024 11:41 PM [employer] us Rajwinder HERNANDEZ URINE Final Result [facility] [address] [place] [address] * (ABNORMAL) URINE CULTURE (03/30/2024 11:35 PM [employer]) CULTURE RESULT(A) 04/09/2024 2:47 PM [employer] [facility] CULTURE >100,000 CFU/mL Escherichia coli 04/09/2024 2:47 PM [employer] [facility] Comment: Sent to [facility], [place], [place] for susceptibility - Fosfomycin See separate report. ESBL-positive (Extended-spectrum beta-lactamase); multidrug-resistant organism. Urine URINE SPECIMEN / Unknown Non-Blood / Unknown 03/30/2024 11:35 PM [employer] 03/30/2024 11:41 PM [employer] Narrative Organism Antibiotic Method Susceptibility Escherichia coli TRIMETHOPRIM/SULF >=16/304: R Escherichia coli AMPICILLIN >=32: R Escherichia coli CEFAZOLIN >=32: R Escherichia coli CEFAZOLIN-UC >=32: R Comment:Cefazolin-UC interpretations are for therapy of uncomplicated UTIs due to E.coli, K.pneumoniae, or P.mirablis. Cefazolin breakpoint is used as a surrogate to predict results for the oral agents - cefdinir, cefuroxime, and cephalexin, when used for therapy of uncomplicated UTIs due to E coli, K, pneumoniae, and P. mirabilis. The FDA recommends cefadroxil susceptibility can be deduced from cefazolin. Escherichia coli GENTAMICIN <=1: S Escherichia coli CEFTRIAXONE >=64: R Escherichia coli CEFTAZIDIME R Escherichia coli LEVOFLOXACIN >=8: R Escherichia coli CIPROFLOXACIN >=4: R Escherichia coli PIPERACILLIN/TAZO <=4: S Escherichia coli AMPICILLIN/SULBACTAM 4: S Escherichia coli CEFEPIME 16: R Escherichia coli MEROPENEM <=0.25: S Escherichia coli NITROFURANTOIN 64: I Rajwinder HERNANDEZ MICROBIOLOGY Edited Result - Final [facility] [address] [place] [address], [place] * (ABNORMAL) UA W/ SEDIMENT EXAM REFLEXED PER CRITERIA (03/30/2024 11:35 PM [employer]) COLOR Yellow Yellow Color 03/30/2024 11:51 PM [facility] CLARITY Slightly Cloudy(A) Clear Clarity 03/30/2024 11:51 PM [facility] SPECIFIC GRAVITY,URINE 1.020 1.010, 1.015, 1.020, 1.025 03/30/2024 11:51 PM [facility] PH,URINE 6.0 6.0, 7.0, 8.0, 5.5, 6.5, 7.5, 8.5 03/30/2024 11:51 PM [facility] UROBILINOGEN, QUALITATIVE Normal Normal EU/dl 03/30/2024 11:51 PM [facility] PROTEIN, URINE 30(A) Negative mg/dL 03/30/2024 11:51 PM [facility] GLUCOSE, URINE Negative Negative mg/dL 03/30/2024 11:51 PM [facility] KETONES,URINE Negative Negative mg/dL 03/30/2024 11:51 PM [facility] BILIRUBIN,URI NE Negative Negative 03/30/2024 11:51 PM [facility] OCCULT BLOOD,URINE Trace(A) Negative 03/30/2024 11:51 PM [facility] NITRITE Positive(A) Negative 03/30/2024 11:51 PM [facility] LEUKOCYTE ESTERASE Large(A) Negative 03/30/2024 11:51 PM [facility] Urine URINE SPECIMEN / Unknown Non-Blood / Unknown 03/30/2024 11:35 PM [employer] 03/30/2024 11:41 PM [employer] us Rajwinder HERNANDEZ URINE Final Result [facility] [address] [place] [address] * XR CHEST 1 VIEW PORTABLE (03/30/2024 11:11 PM [employer]) Anatomical Region Laterality Modality HEART, THORAX, CHEST Digital Rad iography 03/30/2024 11:4 3 PM [employer] Impressions 03/30/2024 11:43 PM [employer] No evidence of an acute pulmonary process in the setting of emphysema. Dictated by Edil Mendoza MD @ 03/30/2024 11:43:52 PM (Electronically Signed) Narrative 03/30/2024 11:43 PM [employer] For Patients: As a result of the Cures Act, medical imaging exams and procedure reports are released immediately into your electronic medical record. You may view this report before your referring provider. If you have questions, please contact your health care provider. INDICATION: Evaluate lung infiltrate. TECHNIQUE: Chest 1 view. COMPARISON: 08/20/2022. FINDINGS: Cardiovascular and mediastinum: Normal heart size. Uncoiled and atherosclerotic thoracic aorta. Lungs and pleural spaces: Hyperexpanded lungs. No consolidation. No pleural effusion, or pneumothorax. Bones and soft tissues: Unremarkable for age. Procedure Note Edil Mendoza MD - 03/30/2024 For Patients: As a result of the Cures Act, medical imagingexams and procedure reports are released immediately into your electronicmedical record. You may view this report before your referring provider.If you have questions, please contact your health care provider. INDICATION: Evaluate lung infiltrate. TECHNIQUE: Chest 1 view. COMPARISON: 08/20/2022. FINDINGS: Cardiovascular and mediastinum: Normal heart size. Uncoiled andatherosclerotic thoracic aorta. Lungs and pleural spaces: Hyperexpanded lungs. No consolidation. Nopleural effusion, or pneumothorax. Bones and soft tissues: Unremarkable for age. IMPRESSION: No evidence of an acute pulmonary process in the setting of emphysema. Dictated by Edil Mendoza MD @ 03/30/2024 11:43:52 PM (Electronically Signed) Rajwinder HERNANDEZ GENERAL IMAGING Final Result * COVID-19 MOLECULAR (03/30/2024 11:01 PM [employer]) COVID 19 [place] MOLECULAR Not detected Not detected 03/30/2024 11:47 PM [facility] TESTING LABORATORY [facility] 03/30/2024 11:47 PM [employer] [facility] Comment:Specimen submitted t o [facility] for testing. Other SPECIMEN FROM NASOPHARYNGEAL STRUCTURE / Unknown Non-Blood / Unknown 03/30/2024 11:01 PM [employer] 03/30/2024 11:07 PM [employer] Rajwinder HERNANDEZ MICROBIOLOGY Final Result [facility] [address] [place] [address] * INFLUENZA A/B PCR (03/30/2024 11:01 PM [employer]) [facility] INFLUENZA A PCR NOT Detected 03/30/2024 11:47 PM [facility] INFLUENZA B PCR NOT Detected 03/30/2024 11:47 PM [facility] Other SPECIMEN FROM NASOPHARYNGEAL STRUCTURE / Unknown Non-Blood / Unknown 03/30/2024 11:01 PM [employer] 03/30/2024 11:07 PM [employer] Rajwinder HERNANDEZ MICROBIOLOGY Final Result Performing Organization Address [facility]/ZIP Co de Phone Number [facility] [address] [place] [address] * (ABNORMAL) CBC WITH AUTO DIFFERENTIAL (03/30/2024 11:01 PM [employer]) Pathologist [facility] WHITE BLOOD COUNT 8.0 4.5 - 11.0 thou/cu mm 03/30/2024 11:12 PM [facility] RED BLOOD COUNT 3.88(L) 4.00 - 5.20 mil/cu mm 03/30/2024 11:12 PM [facility] HEMOGLOBIN 12.3 12.0 - 16.0 g/dL 03/30/2024 11:12 PM [facility] HEMATOCRIT 38.0 33.0 - 51.0 % 03/30/2024 11:12 PM [facility] MCV 98 80 - 100 fL 03/30/2024 11:12 PM [facility] MCH 31.7 26.0 - 34.0 pg 03/30/2024 11:12 PM [facility] MCHC 32.4 32.0 - 36.0 g/dL 03/30/2024 11:12 PM [facility] RDW 14.5 11.5 - 15.5 % 03/30/2024 11:12 PM [facility] PLATELET COUNT 298 140 - 440 thou/cu mm 03/30/2024 11:12 PM [facility] MPV 9.7 6.5 - 11.0 fL 03/30/2024 11:12 PM [facility] % NEUT 74.3 % 03/30/2024 11:12 PM [facility] % LYMPH 15.7 % 03/30/2024 11:12 PM [facility] % MONO 9.0 % 03/30/2024 11:12 PM [facility] % EOS 0.6 % 03/30/2024 11:12 PM [facility] % BASO 0.4 % 03/30/2024 11:12 PM [facility] ABSOLUTE NEUTROPHILS 6.0 1.7 - 7.0 thou/cu mm 03/30/2024 11:12 PM [facility] ABSOLUTE LYMPHOCYTES 1.3 0.9 - 2.9 thou/cu mm 03/30/2024 11:12 PM [facility] ABSOLUTE MONOCYTES 0.7 <0.9 thou/cu mm 03/30/2024 11:12 PM [facility] ABSOLUTE EOSINOPHILS 0.1 <0.5 thou/cu mm 03/30/2024 11:12 PM [facility] ABSOLUTE BASOPHILS 0.0 <0.3 thou/cu mm 03/30/2024 11:12 PM [facility] Blood BLOOD SPECIMEN / Unknown Butterfly / Unknown 03/30/2024 11:01 PM [facility] 03/30/2024 11:08 PM [facility] Rajwinder HERNANDEZ HEMATOLOGY Final Result [facility] [address] [place] [address] * LACTATE VENOUS (03/30/2024 11:01 PM [facility]) LACTATE,VENOUS 0.9 0.5 - 2.0 mmol/L 03/30/2024 11:28 PM [facility] [employer] [facility] Blood BLOOD SPECIMEN / Unknown Butterfly / Unknown 03/30/2024 11:01 PM [facility] 03/30/2024 11:08 PM [facility] Rajwinder HERNANDEZ CHEMISTRY Final Result Performing Organization Address [facility] Co de Phone Number [facility] [address] [place] [address] * PROCALCITONIN (03/30/2024 11:01 PM [facility]) PROCALCITONIN 0.08 ng/ml 03/30/2024 11:39 PM [facility] [employer] [facility] Blood BLOOD SPECIMEN / Unknown Butterfly / Unknown 03/30/2024 11:01 PM [facility] [employer] [facility] 03/30/2024 11:07 PM [facility] [employer] [facility] Narrative [facility] - 03/30/2024 11:39 PM [facility] Procalcitonin for initial assessment of Lower Respiratory Tract Infection: Results Interpretation <0.10 ng/mL Antibiotic therapy strongly discoraged. Indicates absent of bacterial infection. * 0.10 - 0.25 ng/mL Antibiotic therapy discouraged. Bacterial infection unlikely. * 0.26 - 0.50 ng/mL Antibiotic therapy encouraged. Bacterial infection possible. >0.50 ng/mL Antibiotic therapy strongly encouraged. Suggestive of presence of bacterial infection. *Antibiotic therapy should be considered regardless of PCT result if the patient is clinically unstable, is at high risk for adverse outcome, has strong evidence of bacterial pathogen, or the clinical context indicates antibiotic therapy is warranted. If antibiotics are withheld, reassess if symptoms persist/worsen and/or repeat PCT measurement within 6-24 hours. In order to assess treatment success and to support a decision to discontinue antibiotic therapy, follow up samples should be tested once every 1-2 days, based upon physician discretion taking into account patient's evolution and progress. Procalcitonin for initial assessment of severe sepsis risk: Results Interpretation <0.5 ng/ml A PCT level below 0.5 ng/ml on the first day of ICU admission is associated with a low risk for progression to severe sepsis and/or septic shock. > 2.0 ng/mL A PCT level above 2.0 ng/mL on the first day of ICU admission is associated with a high risk for progression to severe sepsis and/or septic shock. Note: Concentrations < 0.5 ng/mL do not exclude an infection, on account of localized infections (without systemic signs) which can be associated with such low concentrations, or a systemic infection in its initial stages(< 6 hours). Furthermore, increased procalcitonin can occur without infection. PCT concentrations between 0.5 and 2.0 ng/mL should be interpreted taking into account the patient's history. It is recommended to retest PCT within 6-24 hours if any concentrations < 2 ng/mL are obtained. Rajwinder HERNANDEZ SEND OUTS Final Result Performing Organization Address [facility]/ZIP Co de Phone Number [facility] [address] [place] [address] * BLOOD CULTURE X2 (03/30/2024 11:01 PM [facility]) Only the most recent of2 resultswithin the time period is included. CULTURE No Growth. 04/05/2024 8:17 AM [facility] [employer] [facility] Blood BLOOD SPECIMEN / Unknown Butterfly / Unknown 03/30/2024 11:01 PM [facility] [employer] [facility] 03/30/2024 11:08 PM [facility] [employer] [facility] Rajwinder HERNANDEZ MICROBIOLOGY Final Result Performing Organization Address [facility] Co de Phone Number [facility] [address] [place] [address] * (ABNORMAL) BASIC METABOLIC PANEL (03/30/2024 11:01 PM [facility]) SODIUM 138 136 - 145 mmol/L 03/30/2024 11:27 PM [facility] POTASSIUM 4.3 3.5 - 5.1 mmol/L 03/30/2024 11:27 PM [facility] CHLORIDE 104 98 - 107 mmol/L 03/30/2024 11:27 PM [facility] CO2,TOTAL 25 22 - 29 mmol/L 03/30/2024 11:27 PM [facility] ANION GAP 9 5 - 18 03/30/2024 11:27 PM [facility] GLUCOSE 115(H) 70 - 99 mg/dL 03/30/2024 11:27 PM [facility] CALCIUM 10.0 8.8 - 10.4 mg/dL 03/30/2024 11:27 PM [facility] Comment: Reference ranges for this test were updated on 02/26/2024 to reflect our healthy population more accurately. Reference range changes are not retroactively applied to results, but previous results using the same methodology can be interpreted in the context of the new reference range. BUN 22 8 - 23 mg/dL 03/30/2024 11:27 PM [facility] CREATININE 0.85 0.50 - 0.90 mg/dL 03/30/2024 11:27 PM [facility] BUN/CREAT RATIO 26(H) 10 - 20 11:27 PM [facility] eGFR 68(L) >90 mL/min/1. 73m2 03/30/2024 11:27 PM [facility] Comment:As of 2021, eG FR is calculated by the CKD-EPI creatinine equation without race adjustment. eGFR can be influenced by muscle mass, exercise, and diet. The reported eGFR is an estimation only and is only applicable if the renal function is stable. Blood BLOOD SPECIMEN / Unknown Butterfly / Unknown 03/30/2024 11:01 PM [facility] 03/30/2024 11:07 PM [facility] Rajwinder HERNANDEZ CHEMISTRY Final Result [facility] [address] [place] [address] * (ABNORMAL) XR DXA BONE DENSITY 2 SITES AXIAL (02/25/2020 3:20 PM [facility]) Anatomical Region Laterality Modality Spine, HIPS, HIPL, HIPR Bone Den sitometry Narrative 02/27/2020 8:13 AM [facility] [facility] Please see scanned document for results of this study. us Dayana Diaz DO DEXA Final Result from Last 3 Months or Most Recently Relevant to Health Maintenance Additional Health Concerns Infection Onset Date Last Indicated ESBL Comment:Order Contact Precautions. Order consult to Infection Prevention to determine if patient may be removed from precautions. +MDRO, 03/30/2024, urine, ESBL+ E. coli +MDRO, 01/29/2024, urine, ESBL+ E. coli +MDRO, 07/30/2023, urine, ESBL+ E. coli +MDRO, 06/18/2023, urine, ESBL+ E. 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 POLST 08/09/2023 3:36 PM Healthcare Directive 09/24/2016 10:22 PM Healthcare Directive 09/19/2016 11:03 AM H EALTHCARE DIRECTIVE, 09/12/2016 * DNR (Latest Code Status on File) Date Activated Date Inactivated Comments 03/31/2024 1:25 AM 04/03/2024 12:56 PM Reviewed P OLST with bedside RN Question Answer Comments Code Status Discussion: Reviewed Preferences * DNR Date Activated Date Inactivated Comments 01/29/2024 10:26 PM 02/01/2024 2:27 PM Question Answer Comments Code Status Discussion: Reviewed Preferences * Full Code Date Activated Date Inactivated Comments 01/29/2024 10:09 PM 01/29/2024 10:26 PM Question Answer Comments Code Status Discussion: Reviewed Preferences * Full Code Date Activated Date Inactivated Comments 12/14/2017 10:14 AM 12/14/2017 3:53 PM Question Answer Comments Code Status Discussion: Discussed * Full Code Date Activated Date Inactivated Comments 02/01/2017 10:28 AM 02/01/2017 3:40 PM Care Teams Cutter Banana Room Relationship Specialty Start Date End Date Dayana Diaz DO [address] [facility] [place] [address] PCP - General Internal Medicine 04/07/16
[2024-05-05 16:32] LABS: Appearance Urine Clear (Clear); Bilirubin Urine Negative (Negative); Blood Urine Trace-lysed (Negative); Color Urine Yellow (Yellow); Glucose Urine Negative (Negative); Ketones Urine Negative (Negative); Leukocyte Esterase Urine 3+ (Negative); Nitrite Urine Positive (Negative); Protein Urine 2+ (Negative); Urobilinogen Urine 0.2 (0.2-1.0); pH Urine 5.5 (5.0-8.5)
[2024-05-05 16:56] LABS: Bacteria Urine Moderate; Squamous Epithelial Cell Urine Few (None-Few)
[2024-05-05] MEDS: ERTAPENEM 1 GM in 0.9 % SODIUM CHLORIDE Mini-bag 100 ML IVPB (17:09)
[2024-05-05 17:11] VITALS: BP 141/96; PULSE 82; RESP 16; O2SAT 94
[2024-05-05 17:28] VITALS: BP 142/99; PULSE 81; RESP 16; TEMP 36.7; O2SAT 97; BMI 20.2
[2024-05-05 18:47] VITALS: RESP 16; O2SAT 97
[2024-05-05 19:00] VITALS: BP 138/92; PULSE 84; RESP 16; TEMP 36.4; O2SAT 94
--- NOTE | 2024-05-05 19:02 | P.IMHP_ITS ---
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 Pt is demented and is unreliable historian. In addition, the patient brought a report w/ positive urine culture for ESBL E coli from an outside lab, sensitive to carbapenems -dated on May 02-. Pt lives at an assisted living (memory care) with home care. Pt was admitted twice recently to [facility] on Mar 30, 2024 till Apr 03 for an ESBL UTI, and ID there recommended one further dose of IV ertapenem on discharge and then stopping further antibiotics as patient was admitted previously from 01/29/2024 through 02/01/2024 for treatment of a complicated UTI, at that time her urine culture grew out ESBL sensitive to meropenem and she was treated with meropenem and fosfomycin. At the ED, patient was hemodynamically stable, labs unremarkable except for +ve UTI, patient will be admitted for further evaluation and management. Review of Systems Status of ROS: Reports: 6 or more systems reviewed and unremarkable except as noted in History and below [facility] Medical History (Updated 05/05/24 @ 19:13 by Salma Vaughn MD) ESBL (extended spectrum beta-lactamase) producing bacteria infection ?A49.9 - Bacterial infection, unspecified (ICD-10) ?Z16.12 - Extended spectrum beta lactamase (ESBL) resistance (ICD-10) Vascular dementia ?F01.50 - Vascular dementia, unspecified severity, without behavioral disturbance, psychotic disturbance, mood disturbance, and anxiety (ICD-10) Augustine esophagus ?K22.70 - Augustine's esophagus without dysplasia (ICD-10) COPD (chronic obstructive pulmonary disease) ?J44.9 - Chronic obstructive pulmonary disease, unspecified (ICD-10) Hyperlipidemia ?E78.5 - Hyperlipidemia, unspecified (ICD-10) Recurrent urinary tract infection ?N39.0 - Urinary tract infection, site not specified (ICD-10) Hypertension ?I10 - Essential (primary) hypertension (ICD-10) Meds Home Medications and Allergies Home Medications ?Medication ?Instructions ?Recorded ?Confirmed ?Type albuterol sulfate 90 mcg/actuation inhalation 05/05/24 History aerosol inhaler cranberry 500 mg capsule 500 mg PO DAILY 05/05/24 05/05/24 History docusate sodium 05/05/24 History estradiol 0.01% (0.1 mg/gram) vaginal 05/05/24 History vaginal cream lisinopril 5 mg tablet 5 mg PO DAILY 05/05/24 05/05/24 History mirtazapine 7.5 mg tablet 7.5 mg PO QPM 05/05/24 05/05/24 History Allergies Allergy/AdvReac Type Severity Reaction Status Date / Time No Known Allergies Allergy Unknown Unverified 07/30/23 08:32 Exam Narrative: Exam Narrative: Physical exam GENERAL: Comfortable, no acute distress. HEAD AND NECK: Atraumatic, normocephalic CARDIOVASCULAR: RRR. Normal S1, S2. No murmurs. RESPIRATORY: Clear to auscultation B/L. Good air entry B/L. No wheezes or rhonchi. GASTROINTESTINAL: Not distended, not tender to palpation. NEUROLOGY: Alert, awake, not oriented to time place or circumstances. Normal speech. PSYCH: Normal mood, normal affect. Const: Vital Signs, click to edit/add: Vital Signs - 24 hr 05/05/24 14:48 05/05/24 17:11 Temperature 97 F L Pulse Rate [Pulse Oximeter] 88 82 Respiratory Rate 18 16 Blood Pressure [Ri ght Upper Arm] 138/91 H 141/96 H Pulse Oximetry 95 94 Oxygen Delivery Me thod Room Air Room Air Hospitalist - H&P: Result Labs Labs: Short CBC 05/05/24 Range/Units 15:35 WBC 8.44 (4.50-11.00) K/uL Hgb 13.8 (12.0-16.0) gm/dL Hct 42.5 (33.0-51.0) % Plt Count 300 (140-440) K/uL BMP 05/05/24 15:35 Sodium 136 Potassium 4.3 Chloride 104 Carbon Dioxide 26 BUN 26 Creatinine 1.1 Glucose 90 Calcium 9.5 Urine 05/05/24 Range/Units 16:01 Urine Color Yellow (Yellow) Urine Appearance Clear (Clear) Urine pH 5.5 (5.0-8.5) Ur Specific [place] 1.020 (1.000-1.030) Urine Protein 2+ A (Negative) Urine Glucose (UA) Negative (Negative) Assessment and Plan Assessment and plan (1) Recurrent urinary tract infection: Problem comment: -Pt was admitted twice recently to [facility] in January and then in March 2024. In March, Infectious disease specialist was consulted at [facility] and it seems they did not recommend continuing carbapenem treatment for an extended period after discharge (patient was admitted for 4 days only in March). -Will need recommendations from ID on the length of Tx for this recurrent infection and any prophylaxis if available. -ertapenem treatment was started at our ED today May 05. Status: Acute (2) ESBL (extended spectrum beta-lactamase) producing bacteria infection: Problem comment: Recurrent ESBL infection As above Status: Acute (3) Vascular dementia: Problem comment: Patient is not oriented to time, place or circumstances Pt lives at an assisted living (memory care) with home care Status: Acute (4) Hypertension: Problem comment: Resume lisinopril Status: Acute (5) Hyperlipidemia: Status: Acute (6) COPD (chronic obstructive pulmonary disease): Problem comment: On p.r.n. albuterol inhaler Status: Acute (7) Augustine esophagus: Status: Acute Plan As above Total Time Spent Total Time Spent: Time spent: Today I spent 75 minutes seeing the patient, discussing the patient with ER staff, reviewing Expanse and EPIC notes/diagnostics, discussing the care plan with our care time that includes social work, PT/OT, pharmacy, RT, half-way and documenting my impressions and plan in the medical record.
[2024-05-05] MEDS: MIRTAZAPINE 15 MG TABLET 7.5 MG PO (19:58)
[2024-05-05] MEDS: ENOXAPARIN 30 MG/0.3ML INJ SUBCUT (21:27)
[2024-05-05] MEDS: SODIUM CHLORIDE 0.9 % (FLUSH) 10 ML SYRINGE 5 ML IVF (21:27)
[2024-05-05] MEDS: DOCUSATE SODIUM 100 MG CAPSULE PO (21:27)
[2024-05-05 23:00] VITALS: BP 152/102; PULSE 80; RESP 18; TEMP 36.4; O2SAT 95
--- NOTE | 2024-05-05 23:35 | PC.NURSE ---
Pt arrived to floor at 1728. Pt alert, oriented to self and vitally stable. Pt has dementia at baseline. Unable to use call light appropriately, bed alarm and fall light in use. Pt up via 2a pivot, not tolerated well, recommend lucho steady or ez stand. Pt needs redirection at times and is incontinent. Pt in bed, appears to be resting, call light within reach. ?
[2024-05-06 03:00] VITALS: BP 139/93; PULSE 82; RESP 16; TEMP 36.4; O2SAT 95
[2024-05-06 06:32] LABS: Chloride* 108 mmol/L (96-114)
[2024-05-06 06:33] LABS: Potassium* 3.6 mmol/L (3.6-5.1); Sodium* 137 mmol/L (135-149)
[2024-05-06 06:35] LABS: Creatinine* 0.8 mg/dL (0.5-1.5); Est. Creatinine Clearance* 33.89; Estimated Glomerular Filt Rate 73 ml/min
[2024-05-06 06:36] LABS: Anion Gap 5 mEq/L (7-15); Blood Urea Nitrogen* 23 mg/dL (7-30); Calcium* 9.1 mg/dL (8.4-10.6); Carbon Dioxide* 24 mmol/L (20-32); Glucose* 86 mg/dL (60-115)
[2024-05-06 06:38] LABS: Hematocrit 38.3 % (33.0-51.0); Hemoglobin* 12.6 gm/dL (12.0-16.0); Mean Corpuscular HGB Conc 33 gm/dL (32-36); Mean Corpuscular Hemoglobin 31 pg (26-34); Mean Corpuscular Volume 94 fL (80-100); Platelet Count* 275 K/uL (140-440); Red Blood Count 4.06 m/uL (4.00-5.20); White Blood Count* 5.56 K/uL (4.50-11.00)
[2024-05-06 06:40] LABS: Slide Review Reflex No
--- NOTE | 2024-05-06 06:43 | PC.NURSE ---
End of shift [id number]: Pt AxOx4, cooperative, and pleasant. Pt has dementia at baseline. Unable to use call light appropriately, bed alarm and fall light in use. Pt up via 2A BSC, tolerated well.?Pt appears resting with call light in reach. ?
[2024-05-06 07:00] VITALS: BP 115/80; PULSE 83; PULSE 85; RESP 15; TEMP 36.3; O2SAT 97
[2024-05-06] MEDS: lisinopriL 5 MG TABLET PO (08:37)
[2024-05-06] MEDS: SODIUM CHLORIDE 0.9 % (FLUSH) 10 ML SYRINGE 5 ML IVF ×2 (08:37→20:16)
[2024-05-06] MEDS: DOCUSATE SODIUM 100 MG CAPSULE PO ×2 (08:37→20:15)
[2024-05-06 11:00] VITALS: BP 106/78; PULSE 86; RESP 18; TEMP 36.3; O2SAT 95
--- NOTE | 2024-05-06 11:32 | PM.IMPN1 ---
Progress Note: A&P Assessment and plan (1) Recurrent urinary tract infection: Problem details: - Lashell was admitted in January and March 2024 in [place], treated most recently with IV Carbapenem - during this stay, Ertapenem initiated 05/05 - reviewed with ID on 05/06; patient afebrile without evidence of pyelonephritis or sepsis - given current culture results, ID recommendation: treat inpatient with Ertapenem x3 doses, give 1 dose of oral Fosfomycin upon d/c Status: Acute (2) ESBL (extended spectrum beta-lactamase) producing bacteria infection: Problem details: - per above Status: Acute (3) Vascular dementia: Problem details: - not oriented to time, place or circumstances - currently living at an assisted living facility, considering moving her home, also meeting with hospice Status: Acute (4) Hypertension: Problem details: - on 5mg of Lisinopril as an outpatient, continuing this Status: Acute (5) COPD (chronic obstructive pulmonary disease): Problem details: - prn nebs and inhalers as an outpatient Status: Acute Plan - per above - and daughter updated at bedside. They are meeting with hospice today to discuss options - patient likely ready for d/c on 05/07 (home with hospice vs CUSTODIAL with hospice, SNF less likely) Time Spent With Patient Total time spent: 65 minutes spent on patient today: updates to family, ID consult, multdisciplinary team discussion Subjective Date Seen: 05/06/24 Interval history: Lashell was admitted to the hospital last night for recurrent UTI, history of these (ESBL). Symptoms on admission included weakness and urinary frequency. Remains afebrile. Noted to have cognitive impairment, minimal interaction this morning. States no when asked about pain. Exam Narrative: Exam Narrative: Lashell is sitting comfortably in bedside chair, resting. Answers no when asked about pain or other concerns. Const: Vital Signs, click to edit/add: Vital Signs - 24 hr 05/05/24 14:48 05/05/24 17:11 05/05/24 17:28 Temperature 97 F L 98.1 F Pulse Rate [Pulse Oximeter] 88 82 81 Respiratory Rate 18 16 16 Blood Pressure [Le ft Arm] 142/99 H Blood Pressure [Ri ght Upper Arm] 138/91 H 141/96 H Pulse Oximetry 95 94 97 Oxygen Delivery Me thod Room Air Room Air Room Air 05/05/24 18:47 05/05/24 19:00 05/05/24 23:00 Temperature 97.5 F L 97.5 F L Pulse Rate [Pulse Oximeter] 84 80 Respiratory Rate 16 16 18 Blood Pressure [Le ft Arm] 138/92 H 152/102 H Blood Pressure [Ri ght Upper Arm] Pulse Oximetry 97 94 95 Oxygen Delivery Me thod Room Air Room Air Room Air 05/06/24 03:00 05/06/24 07:00 05/06/24 07:00 Temperature 97.5 F L 97.4 F L Pulse Rate [Pulse Oximeter] 82 83 85 Respiratory Rate 16 15 15 Blood Pressure [Le ft Arm] 139/93 H 115/80 Blood Pressure [Ri ght Upper Arm] Pulse Oximetry 95 97 Oxygen Delivery Me thod Room Air Room Air Labs Labs: Laboratory Results - last 24 hr 05/05/24 05/05/24 05/06/24 15:35 16:01 06:10 WBC 8.44 5.56 RBC 4.40 4.06 Hgb 13.8 12.6 Hct 42.5 38.3 MCV 97 94 MCH 31 31 MCHC 33 33 RDW Coeff of Aurelio 14.6 Plt Count 300 275 Neut % (Auto) 65.4 Lymph % (Auto) 24.8 [place] % (Auto) 6.9 Eos % (Auto) 1.3 Baso % (Auto) 0.4 Neut # (Auto) 5.53 Lymph # (Auto) 2.09 [place] # (Auto) 0.60 Eos # (Auto) 0.11 Baso # (Auto) 0.03 Abs Immat Gran (auto) 0.10 Imm/Tot Granulo (auto) 1.2 Sodium 136 137 Potassium 4.3 3.6 Chloride 104 108 Carbon Dioxide 26 24 Anion Gap 6 L 5 L BUN 26 23 Creatinine 1.1 0.8 Estimated Creat Clear 33.89 Estimated GFR 50 73 Glucose 90 86 Calcium 9.5 9.1 Urine Color Yellow Urine Appearance Clear Urine pH 5.5 Ur Specific [place] 1.020 Urine Protein 2+ A Urine Glucose (UA) Negative Urine Ketones Negative Urine Blood Trace-lysed A Urine Nitrite Positive A Urine Bilirubin Negative Urine Urobilinogen 0.2 Ur Leukocyte Esterase 3+ A Urine RBC 2-5 A Urine WBC 10-25 A Ur Squamous Epith Cells Few Urine Bacteria Moderate A
[2024-05-06] MEDS: ERTAPENEM 1 GM in 0.9 % SODIUM CHLORIDE Mini-bag 100 ML IVPB (12:49)
[2024-05-06 14:43] VITALS: BP 115/84; PULSE 79; PULSE 86; RESP 16; TEMP 36.6; O2SAT 94
--- NOTE | 2024-05-06 15:58 | REH.OT ---
OT and PT consult orders received. Pt eval on hold today to determine goals of care. Will recheck tomorrow.
[2024-05-06] MEDS: MIRTAZAPINE 15 MG TABLET 7.5 MG PO (17:37)
--- NOTE | 2024-05-06 18:55 | PC.NURSE ---
End of shift report [id number]: Pleasant and cooperative with cares. Patient oriented to self only, unable to verify date of or where she is at. Denies any pain, shortness of breath or chest pain. Transfers with assist x 2 pivot transfer to [facility], continent of bladder and bowel this shift. Urine clear, light chey in color and strong odor. bedside, no concerns at this time.
[2024-05-06 19:00] VITALS: BP 123/78; PULSE 90; RESP 16; TEMP 36.7; O2SAT 95
[2024-05-06] MEDS: ENOXAPARIN 30 MG/0.3ML INJ SUBCUT (20:15)
[2024-05-06 23:00] VITALS: BP 139/96; PULSE 80; RESP 16; TEMP 36.4; O2SAT 96
[2024-05-07 03:00] VITALS: RESP 16
--- NOTE | 2024-05-07 05:30 | PC.NURSE ---
[id number] Pt slept well during the night, transfers 2A, lucho-steady, tolerates activity well. denies pain, N/V.
[2024-05-07 07:00] VITALS: BP 156/91; PULSE 77; RESP 17; TEMP 36.6; O2SAT 95
[2024-05-07] MEDS: DOCUSATE SODIUM 100 MG CAPSULE PO (07:41)
[2024-05-07] MEDS: lisinopriL 5 MG TABLET PO (07:41)
[2024-05-07] MEDS: SODIUM CHLORIDE 0.9 % (FLUSH) 10 ML SYRINGE 5 ML IVF (07:42)
--- NOTE | 2024-05-07 09:03 | REH.OT ---
OT/PT orders for consult have been cancelled per MD request. Pt. will return home today w/ continued services at her [facility].
--- NOTE | 2024-05-07 10:04 | PC.SOCIAL ---
Discharge plan: Spoke with pt and family in room. Family plans to transport pt back to [facility] today. Per family, nursing is providing medications for her there and family is assisting pt as needed. Family requested social services analyst coordinate discharge back to [facility] with nursing at that facility. Called [facility] [phone] and spoke with nursing aide, Shannon who reuqested pt return to their facility by 3:00 if possible and that discharge orders need to arrive by fax before 1:00pm. Fax number is [phone]. Hospital nurse to call for nurse to nurse to [phone], or [phone]. outside maintenance worker to follow up as needed.
--- NOTE | 2024-05-07 10:12 | PM.DS1 ---
DS: Providers Provider Date Seen: 05/07/24 Date of admission: 05/05/24 17:27 Primary care physician: Not a Local Provider Admitting Clinician: Salma Vaughn MD Consults: JULIETA NEWTON Attending Physician on discharge: Arely Miranda MD Date of Discharge: 05/07/24 DS: Diagnosis Discharge Diagnosis (1) Recurrent urinary tract infection: Status: Acute Problem details: - Lashell was admitted in January and March 2024 in [place], treated most recently with IV Carbapenem - during current admission, Ertapenem initiated 05/05 - reviewed with ID on 05/06; patient afebrile without evidence of pyelonephritis or sepsis - given current culture results, ID recommendation: treat inpatient with Ertapenem x3 doses, give 1 dose of oral Fosfomycin upon d/c - recurrent infections without evidence of bacteremia or sepsis can be treated with oral Fosfomycin (2) ESBL (extended spectrum beta-lactamase) producing bacteria infection: Status: Acute Problem details: - per above (3) Vascular dementia: Status: Acute Problem details: - not oriented to time, place or circumstances - currently living at an assisted living facility, considering moving her home, also meeting with hospice (4) Hypertension: Status: Acute Problem details: - on 5mg of Lisinopril as an outpatient, continuing this (5) COPD (chronic obstructive pulmonary disease): Status: Acute Problem details: - prn nebs and inhalers as an outpatient (6) Frail elderly: Status: Acute DS: Summary Hospital Course Hospital Course: Lashell was admitted to the hospital for recurrent UTI on 05/05/2024 Known history of ESBL, treated with IV Ertapenem during stay. Reassuring labs, VS, and clinical course. Reviewed history and case with ID; 3 days of IV Ertapeneum sufficient + one dose of oral FOSFOMYCIN. Consider oral Fosfomycin as first line outpatient treatment with and recurrent infections that appear uncomplicated. Comorbidities as noted above, stable. No changes made to home medications. Family considering hospice admission for history of vascular dementia. They are comfortable with d/c back to [facility] in [place]) on 05/07/24 with plan to transition home (likely with hospice) in early May. Time Spent with Patient Time attestation: Total time spent providing and/or coordinating discharge services: Time spent: Greater than 30 minutes Specific discharge activities: Family updates, medication management and reconciliation Exam Narrative: Exam Narrative: GEN: Awake and sitting comfortably in bedside chair, eating breakfast HEENT: Normal external ears, EOMIs bilaterally, no scleral icterus CV: RRR R: Breathing comfortably without any wheezing Carrie Psych: Cognitive impairment is evident, no agitation Const: Vital Signs, click to edit/add: Vital Signs - 24 hr 05/06/24 11:00 05/06/24 14:43 05/06/24 14:43 Temperature 97.3 F L 97.9 F Pulse Rate [Pulse Oximeter] 86 86 79 Respiratory Rate 18 16 16 Blood Pressure [Le ft Arm] 106/78 115/84 Pulse Oximetry 95 94 Oxygen Delivery Me thod Room Air Room Air 05/06/24 19:00 05/06/24 23:00 05/07/24 03:00 Temperature 98.0 F 97.5 F L Pulse Rate [Pulse Oximeter] 90 80 Respiratory Rate 16 16 16 Blood Pressure [Le ft Arm] 123/78 139/96 H Pulse Oximetry 95 96 Oxygen Delivery Me thod Room Air Room Air 05/07/24 07:00 05/07/24 07:00 Temperature 97.9 F Pulse Rate [Pulse Oximeter] 77 77 Respiratory Rate 17 17 Blood Pressure [Le ft Arm] 156/91 H Pulse Oximetry 95 Oxygen Delivery Me thod Room Air Discharge Plan Discharge Disposition: [facility] Date of Admission: 05/05/24 17:27 Attending Provider on Discharge: Arely Miranda Consulting Providers: Melody Guido; Zunilda Rizo Primary Care Provider: Provider,Not a Local Condition: Stable Anticipated Discharge Date/Time: 05/07/24 09:53 Discharge Medications: New fosfomycin tromethamine 3 gram packet 1 packet PO Q OTHER DAY Qty: 1 0RF Continued albuterol sulfate 90 mcg/actuation HFA aerosol inhaler 1 puff inhalation Q4H PRN cranberry 500 mg capsule 500 mg PO BID Rx Instructions: administer with a meal lisinopril 5 mg tablet 5 mg PO DAILY estradiol 0.01 % (0.1 mg/gram) cream 1 appful vaginal .2XWEEK mirtazapine 7.5 mg tablet 7.5 mg PO HS acetaminophen 500 mg capsule 500 mg PO Q4H PRN docusate sodium 100 mg capsule 100 mg PO BID Lactobacillus acidoph-L. bifid 1 billion cell wafer 1 tab PO DAILY Rx Instructions: administer (preferably) with milk Hydrocil Powder 2 tsp PO DAILY Rx Instructions: mix into at least 4 oz water or juice before administering Discharge Orders: Discharge Order (Routine); Ordered 05/07/24 Ordered By: Arely Miranda Additional Instructions: Lashell has received 3 days of IV antibiotics during stay, and will finish her treatment with one oral dose of FOSFOMYCIN (sent to [facility] in [place]). If she has symptoms of another UTI, you can ask for treatment with Fosfomycin (oral antibiotic) in order to prevent the need for hospital/ER visit. [facility] is a great local option; another group to consider would be [facility] (their office that covers [facility] is in [place]). Activity Level: Activity as Tolerated Activity Detail: Daily chair exercises are great, no need to push walking given increased risk of falls Discharge Diet: Regular Follow Up Appointments: Provider,Not a Local [Primary Care Provider] - Forms: Crackle Info Instructions Admit to: Assisted Living Discharge Potential: Poor Length of Stay: <30 days Can use facility standing orders?: Yes Code Status: DNR/DNI Rehab Potential: Poor Oxygen: No Urinary Catheter: No Hospice Evaluate and Admit: Family considering Orders are good >30 days: Yes Signature: Arely Miranda MD
[2024-05-07 11:00] VITALS: BP 110/81; PULSE 84; RESP 18; TEMP 36.5; O2SAT 95
[2024-05-07] MEDS: ERTAPENEM 1 GM in 0.9 % SODIUM CHLORIDE Mini-bag 100 ML IVPB (11:07)
--- NOTE | 2024-05-07 13:55 | PC.NURSE ---
End of shift report [id number]: Pleasant and cooperative with cares. Denies any pain this shift. Alert, oriented to person only. Transfers with assist x 1 with Taylor Steady or assist x 1 pivot transfer. Continent of bladder and bowel. IV to left forearm discontinued. Discharge paperwork reviewed with daughter and personal belongings accounted for. Transported via wheelchair to private vehicle for transport back to [place] with daughter.
== END 2024-05-07 13:42 ==
LOC: ED 16:59 → MEDSURG 17:28
PROVIDERS: Admitting Provider Student in an Organized Health Care Education/Training Program; Emergency Provider Student in an Organized Health Care Education/Training Program; Visit Provider Student in an Organized Health Care Education/Training Program
DX: N39.0 Urinary tract infection, site not specified (principal); Z16.12 Extended spectrum beta lactamase (ESBL) resistance; B96.20 Unspecified Escherichia coli [E. coli] as the cause of diseases classified elsewhere; F01.50 Vascular dementia, unspecified severity, without behavioral disturbance, psychotic disturbance, mood disturbance, and anxiety; I10 Essential (primary) hypertension; J44.9 Chronic obstructive pulmonary disease, unspecified; R54 Age-related physical debility
CPT/HCPCS: 36415; 80048; 81001; 85025; 85027; 87086; 87186; 96365; 96366; 96372; 96375; 99284; A9270; G0378; J1335; J1650

== ENCOUNTER 2024-06-12 13:48 | Inpatient (IN) | payer MEDICARE, BC, SELFPAY ==
[2024-06-12] VITALS (10 sets, daily range): BP systolic 125–163; BP diastolic 85–106; PULSE 98–108; RESP 18–20; TEMP 37–37.3; O2SAT 89–93; BMI 23.4
--- OUTSIDE RECORDS SUMMARY | 2024-06-12 13:50 | XMS_ITS ---
Author Organization Unknown Address [address] [place] [address] Phone Care Team Providers Care Fine Arts Instructor Name Role Phone HIRA ROSARIO RN Registered Nurse Unavailable Unavailable Xwatchlist Unavailable NAIMA NICOLE Attending Unavailable JOSE G Aguilar ER Unavailable UNKNOWN Primary Unavailable Results TROPONIN HS QUANTITATIVE - C ollect Date/Time: 05/08/2022 04:04 [facility] H OS ID: [id number] [address] [place], [place], [address] LOINC: Test Value Unit Reference Range Code Code System Flag TROPONIN HS 0.0098 ng/mL L=0.0000 H=0.0399 CMP - Collect Date/Time: 04:04 [facility] H OS ID: [id number] [address] [place], [place], [address] LOINC: Test Value Unit [...] DIFF - Collect Da te/Time: 05/08/2022 04:04 [facility] H OS ID: [id number] [address], [place], [place], [address] LOINC: Test Value Unit Reference Range Code [...] MAGNESIUM - Collect Date/Osmar e: 05/07/2022 13:26 [facility] H OS ID: [id number] [address] [place], [place], [address] LOINC: Test Value Unit Reference Range Code Code System Flag MAGNESIUM 2.0 mg/dL L=1.6 H=2.3 PT/INR/PTT - Collect Date/Ti me: 05/07/2022 13:26 [facility] H OS ID: [id number] [address] [place], [place], [address] LOINC: Test Value Unit Reference Range Code Code System Flag PROTIME 10.1 Secs L=9.0 H=11.2 INR 1.0 L=0.9 H=1.1 PTT 23.6 Secs L=22.0 H=30.0 TROPONIN HS QUANTITATIVE - C ollect Date/Time: 05/07/2022 13:26 [facility] H OS ID: [id number] [address] [place], [place], [address] LOINC: Test Value Unit Reference Range Code Code System Flag TROPONIN HS 0.0074 ng/mL L=0.0000 H=0.0399 CBC W/AUTO DIFF - Collect Da te/Time: 05/07/2022 13:26 [facility] H OS ID: [id number] [address] [place], [place], [address] LOINC: Test Value Unit [...] TEST NO CMP - Collect Date/Time: 13:26 [facility] OS ID: [id number] [address] , [place], [place], [address] LOINC: Test Value Unit Reference Range Code [...] CULTU RE - Collect Date/Time: 05/07/2022 13:11 [facility] OS ID: [id number] [address] [place], [place], [address] LOINC: Test Value Unit [...] Completed: 05/07/2022 13:31 LOINC: \TM00\\12PI\\DRAo\\BM09\\PGN o\\MRB2\ \MRHo\ [facility] [address] [place] [address] ---------NAME--------- NUMBER SEX AGE ADMIT DISC. XRAY# F/C TYPE SUJEY FAGAN [id number] F [id number] 05/07/22 202033 MB E/R DATE OF : 1940 M/R# [id number] PH#: [phone] ED-1 \MRHx\ LOCATION: TRANSCRIBED: 05/07/22 13:28 [place] [id number] COMPLETED:05/07/22 13:Feb {REASON FOR TEST: SYNCOPE PHYSICIAN: [...] 05/07/2022 13:34 LOINC: \TM00\\12PI\\DRAo\\BM09\\PGN o\\MRB2\ \MRHo\ [facility] [address] [place] [address] ---------NAME--------- NUMBER SEX AGE ADMIT DISC. XRAY# F/C TYPE SUJEY FAGAN [id number] F [id number] 05/07/22 088354 MB E/R DATE OF : 1940 M/R# [id number] PH#: [phone] ED-1 \MRHx\ LOCATION: TRANSCRIBED: 05/07/22 13:04 XR CHEST 1V PORT [id number] COMPLETED:05/07/22 13:Feb {REASON FOR CHEST: TRAUMA PHYSICIAN: [...] Smoking History Current every day smoker 01[birth year][id number] Sex Female Vital Signs Vital Sign Value Unit [place] Value [place] Unit Date/Time Recent/Initial? Code Code System Body Mass Index 18.02 kg/m2 05/07/2022 11:00 Initial 20965 -5 LOINC Systolic Blood Pressure 143 mm[Hg] [...] Saturation 96 % 2022 12:54 Most Recent 15020 -5 LOINC O2 Saturation 99 % 2022 11:00 Initial 56475 -5 LOINC Pulse 64.0 /min 05/08/2022 12:54 [...] 47.63 kg 105.00 lbs 05/07/2022 11:00 Initial 26698 -7 [facility] Medications Medication Start Date End Date Route Frequency Dose Code Code System Medication Instructions Home Meds Acetaminophen 500MG Oral Capsule 05/08/2022 Unknown ORAL DAILY 1000 MILLIGRAMS 096049 RxNorm TAKE 1000 MILLIGRAMS ORAL DAILY Atorvastatin Calcium 20MG Oral Tablet 05/08/2022 Unknown ORAL AT BEDTIME 20 MILLIGRAMS 832730 RxNorm TAKE 20 MILLIGRAMS ORAL AT BEDTIME Cranberry 500MG Oral Capsule 05/08/2022 Unknown ORAL AT BEDTIME 500 MILLIGRAMS 3417249 RxNorm TAKE 500 MILLIGRAMS ORAL AT BEDTIME Docusate 100MG Oral Capsule, Liquid Filled 05/08/2022 Unknown ORAL TWICE A DAY 100 MILLIGRAMS 3482363 RxNorm TAKE 100 MILLIGRAMS ORAL TWICE A DAY Donepezil HCl 10MG Oral Tablet 05/08/2022 Unknown ORAL DAILY 10 MILLIGRAMS 373532 RxNorm TAKE 10 MILLIGRAMS ORAL DAILY Ibuprofen 200MG Oral Tablet 05/08/2022 Unknown ORAL AT BEDTIME 400 MILLIGRAMS 894699 RxNorm TAKE 400 MILLIGRAMS ORAL AT BEDTIME Lisinopril 10MG Oral Tablet 05/08/2022 Unknown ORAL DAILY 10 MILLIGRAMS 675327 RxNorm TAKE 10 MILLIGRAMS ORAL DAILY Mirtazapine 7.5MG Oral Tablet 05/08/2022 Unknown ORAL AT BEDTIME 7.5 MILLIGRAMS 436411 RxNorm TAKE 7.5 MILLIGRAMS ORAL AT BEDTIME Vitamin B12 1000MCG Oral Tablet 05/08/2022 Unknown ORAL DAILY 1000 MCG 725845 RxNorm TAKE 1000 MCG ORAL DAILY Vitamin C 1000MG Oral Tablet 05/08/2022 Unknown ORAL DAILY 1000 MILLIGRAMS 045864 RxNorm TAKE 1000 MILLIGRAMS ORAL DAILY Vitamin D3 10 MCG Oral Capsule, Liquid Filled 05/08/2022 Unknown ORAL DAILY 10 MCG RxNorm TAKE 10 MCG ORAL DAILY Cefuroxime 250MG Oral Tablet 05/08/2022 Unknown ORAL TWICE A DAY 2 TABLET 445295 RxNorm TAKE 2 TABLET ORAL TWICE A DAY Nitrofurantoin 100MG Oral Capsule 07/25/2022 Unknown ORAL EVERY 12 HOURS 1 CAPSULE 6956350 RxNorm TAKE 1 CAPSULE ORAL EVERY 12 [...] Date Status Code Code System SYNCOPE active 034133165 SNOMED-CT UTI active 10121164 SNOMED-CT CONTUSION OF HEAD, INITIAL ENCOUNTER active 425168309 SNOMED-CT HYPERTENSION 05/07/2022 resolved 28770729 SNOMED -CT URINARY TRACT INFECTION 05/07/2022 resolved 66498 005 SNOMED-CT Allergies and Adverse Reactions Allergy Substance Reaction Severity Start Date Concern Status Co de Code System No Known Drug Allergies Active 535337425 SNOMED-CT Plan of Treatment Plan Discharge home Referral to Urology & PCP local to [place] Prescription for Cefuroxime for further treatment Tylenol/Acetaminophen [...] Date Inactive Da te Discharge Summary Notes [facility] OS 05/08/2022 12:39 All Demographics Patient Name Age Sex Visit Number Admission Date/Time Attending Physician Date of Service Room and Bed Emergency Contact GRACIA RM 1940 81 years Female [id number] 05/07/2022 14:50 EDWARD Bahman MCNAMARA 05/07/2022 5 AMRIT RM - [id number] 05/08/2022 12:34 Discharge Date: 05/08/22 Reason for [...] one was 2 months ago while in [place], patient's home. Patient has been unable to [...] Referral to Urology & PCP local to [place] Prescription for Cefuroxime for further treatment Tylenol/Acetaminophen [...] 250MG Oral Tablet History and Physical Notes [facility] OS 05/07/2022 14:29 All Demographics Patient Name Age Sex Visit Number Admission Date/Time Attending Physician Date of Service Room and Bed Emergency Contact GRACIA RM 1940 81 years Female [id number] 05/07/2022 10:55 BONNIE MCNAMARA 05/07/2022 ED-1 AMRIT RM - [id number] 05/07/2022 14:25 Admission Date: Date of Service: [...] apparent distress. SKIN: No rashes. No jaundice. [place] and warm with good turgor. No petechia, [...] 1,000 ML IV SOLN, CONTINUOUS Progress Notes [facility] OS 05/08/2022 12:33 All Demographics Patient Name Age Sex Visit Number Admission Date/Time Attending Physician Date of Service Room and Bed Emergency Contact GRACIA RM 1940 81 years Female [id number] 05/07/2022 14:50 EDWARD Bahman MCNAMARA 05/07/2022 5 SUJEY AMRIT - [id number] 05/08/2022 12:33 Admission date: 05/07/22 Diagnosis: Syncope, [...] was 2 months ago. They live in [place] and have no PCP/urologists here in [place]. Patient would like to go home, agrees [...]
--- OUTSIDE RECORDS SUMMARY | 2024-06-12 13:50 | XMS_ITS ---
Author Organization Unknown Address [address] [place] [address] Phone Care Team Providers Care Network Relations Consultant Name Role Phone KWESI FOX Attending Unavailable UNKNOWN Primary Unavailable Social History Type Status Start Date End Date Code Code Syst em Smoking History Current every day smoker 01[birth year][address] Sex Female Vital Signs Vital Sign Value Unit Bear Value Bear Unit Date/Time Recent/Initial? Code Code System Body Mass Index 17.64 kg/m2 08/04/2022 15:59 Initial 02062 -5 [facility] Systolic Blood Pressure 138 mm[Hg] 08/04/2022 16:04 Initial 8480- 6 [facility] Diastolic Blood Pressure 91 mm[Hg] 08/04/2022 16:04 Initial 8462- 4 [facility] Body Surface Area 1.48 m2 08/04/2022 15:59 Initial 3140- 1 LOINC Height 165.100 0 cm 65.00 in 08/04/2022 15:59 Initial 8302- 2 INC O2 Saturation 96 % 2022 15:59 Initial 83708 -5 [facility] Pulse 63.0 /min 08/04/2022 15:59 Initial 8867- 4 INC Respiration 16 /min 08/05/19 15:59 Initial 9279- 1 LOINC Temperature 36.7 Latisha 98.1 F 08/05/19 23 15:59 Initial 8310- 5 LOINC Weight 48.08 kg 106.00 lbs 08/04/2022 15:59 Initial 24022 -7 [facility] Medications Medication Start Date End Date Route Frequency Dose Code Code System Medication Instructions Home Meds Acetaminophen 500MG Oral Capsule 05/08/2022 Unknown ORAL DAILY 1000 MILLIGRAMS 044309 RxNorm TAKE 1000 MILLIGRAMS ORAL DAILY Atorvastatin Calcium 20MG Oral Tablet 05/08/2022 Unknown ORAL AT BEDTIME 20 MILLIGRAMS 883938 RxNorm TAKE 20 MILLIGRAMS ORAL AT BEDTIME Cranberry 500MG Oral Capsule 05/08/2022 Unknown ORAL AT BEDTIME 500 MILLIGRAMS 0595621 RxNorm TAKE 500 MILLIGRAMS ORAL AT BEDTIME Docusate 100MG Oral Capsule, Liquid Filled 05/08/2022 Unknown ORAL TWICE A DAY 100 MILLIGRAMS 1150294 RxNorm TAKE 100 MILLIGRAMS ORAL TWICE A DAY Donepezil HCl 10MG Oral Tablet 05/08/2022 Unknown ORAL DAILY 10 MILLIGRAMS 515456 RxNorm TAKE 10 MILLIGRAMS ORAL DAILY Ibuprofen 200MG Oral Tablet 05/08/2022 Unknown ORAL AT BEDTIME 400 MILLIGRAMS 580821 RxNorm TAKE 400 MILLIGRAMS ORAL AT BEDTIME Lisinopril 10MG Oral Tablet 05/08/2022 Unknown ORAL DAILY 10 MILLIGRAMS 704654 RxNorm TAKE 10 MILLIGRAMS ORAL DAILY Mirtazapine 7.5MG Oral Tablet 05/08/2022 Unknown ORAL AT BEDTIME 7.5 MILLIGRAMS 209181 RxNorm TAKE 7.5 MILLIGRAMS ORAL AT BEDTIME Vitamin B12 1000MCG Oral Tablet 05/08/2022 Unknown ORAL DAILY 1000 MCG 697871 RxNorm TAKE 1000 MCG ORAL DAILY Vitamin C 1000MG Oral Tablet 05/08/2022 Unknown ORAL DAILY 1000 MILLIGRAMS 427556 RxNorm TAKE 1000 MILLIGRAMS ORAL DAILY Vitamin D3 10 MCG Oral Capsule, Liquid Filled 05/08/2022 Unknown ORAL DAILY 10 MCG RxNorm TAKE 10 MCG ORAL DAILY Cefuroxime 250MG Oral Tablet 05/08/2022 Unknown ORAL TWICE A DAY 2 TABLET 564425 RxNorm TAKE 2 TABLET ORAL TWICE A DAY Nitrofurantoin 100MG Oral Capsule 07/25/2022 Unknown ORAL EVERY 12 HOURS 1 CAPSULE 5065420 RxNorm TAKE 1 CAPSULE ORAL EVERY 12 [...] Date Status Code Code System SYNCOPE active 542767973 SNOMED-CT UTI active 56029888 SNOMED-CT CONTUSION OF HEAD, INITIAL ENCOUNTER active 146484765 SNOMED-CT HYPERTENSION 05/07/2022 resolved 58709237 SNOMED -CT URINARY TRACT INFECTION 05/07/2022 resolved 56765 005 SNOMED-CT Allergies and Adverse Reactions Allergy Substance Reaction Severity Start Date Concern Status Co de Code System No Known Drug Allergies Active 606925132 SNOMED-CT Plan of Treatment Plan: follow-up with PCP call for appointment continue current medications return for increased problem Ordered & Completed Meds Table: No Current Medications Available Discharge Medications: Personal Care Team Section Performer Name Performer Role Active Date Inactive Da barak
--- OUTSIDE RECORDS SUMMARY | 2024-06-12 13:50 | XMS_ITS | Clinical Summary ---
Author Organization [facility] Address [address] [place] [id number] Care Team Providers Care Property Portfolio Officer Name Role Phone Dayana Diaz Primary Care [...] Type Department Care Team Description 04/07/[address] [address] Dayana Diaz DO RETURNING CALL (POST HOSP) 04/04/2024 Patient Outreach [facility] [address] [place] [address] Keshia Greene, OTONIEL Primary RN Care Management; Hospital F/U ([facility]-04/03) 03/30/2024 10:17 PM CASH APPLICATIONS MANAGER - 04/03/2024 10:55 AM CASH APPLICATIONS MANAGER Hospital Encounter [facility] [address] [facility] [place] [address] Rajwinder Albright, DAVID Garcia, MD Jakob Velez, DO Masood Abreu, MD Sommer Stone, Lilibeth Platt, MECHATRONICS TECHNOLOGIST Acute cystitis without hematuria (Primary Dx); Generalized weakness; Cough, unspecified type; History of ESBL E. coli infection Discharge Disposition: Home Health 03/30/2024 Travel from Last 3 Months Immunizations Name Administration Dates Next Due COVID-19 vaccine ([employer] 30mcg/0.3mL) 12YO+ BIVALENT PF, MDV 01/19/2022 COVID-19 vaccine ([employer] 30mcg/0.3mL) PF, MDV 02/09/2021,07/08/2020,06/10/2020 Influenza, High-dose [...] drink = 0.6 oz pur e alcohol) PHQ-2 Answer Date Recorded PHQ-2 TOTAL SCORE [...] Ambulatory Vulnerability No t on file 03/30/2024 Utilities Answer Date Recorded Do you have trouble paying f or utilities (for example, heat, electricity, water, phone)? 1 04/02/2024 Comments No Sex and Gender Information Value Date Recorded Sex Assigned at Not on file Legal Sex Female 5:23 AM CASH APPLICATIONS MANAGER Gender Identity Not on file Sexual Orientation Not on file Occupation Industry Job Start Date Job End Date [employer] Not on file Not on file Not on file Obstetrics History Para Term AB IAB SAB Ectopic Multiple Livin g Live Births 4 4 Date Outcome GA Total Labor Labor/2nd/3rd Weight Sex Type Anes PTL Coni A1 A5 Name Clin Last Filed Vital Signs Vital Sign Reading Time Taken Comments Blood Pressure 155/85 04/03/2024 7:42 AM CASH APPLICATIONS MANAGER Pulse 71 04/03/2024 7:42 AM CASH APPLICATIONS MANAGER Temperature 36.8 C (98.3 F) 04/03/2024 7:42 AM CASH APPLICATIONS MANAGER Respiratory Rate 16 04/03/2024 7:42 AM CASH APPLICATIONS MANAGER Oxygen Saturation 93% 04/03/2024 7:42 AM CASH APPLICATIONS MANAGER Inhaled Oxygen Concentration - - Weight 54.5 kg (120 lb 3.2 oz) 03/30/2024 10:22 PM CASH APPLICATIONS MANAGER Height 162.6 cm (5' 4) 03/30/2024 10:22 PM CASH APPLICATIONS MANAGER Body Mass Index 20.63 03/30/2024 10:22 PM CASH APPLICATIONS MANAGER Plan of Treatment Health Maintenance Due Date [...] Comments HEMOGLOBIN Early AM 04/02/2024 6:24 AM CASH APPLICATIONS MANAGER WHITE BLOOD COUNT Early AM 04/02/2024 6:2 4 AM CASH APPLICATIONS MANAGER CREATININE Early AM 04/02/2024 6:24 AM CASH APPLICATIONS MANAGER POTASSIUM Early AM 04/02/2024 6:24 AM CASH APPLICATIONS MANAGER SODIUM Early AM 04/02/2024 6:24 AM CASH APPLICATIONS MANAGER WHITE BLOOD COUNT Early AM 04/01/2024 6:2 2 AM CASH APPLICATIONS MANAGER HEMOGLOBIN Early AM 04/01/2024 6:22 AM CASH APPLICATIONS MANAGER CREATININE Early AM 04/01/2024 6:22 AM CASH APPLICATIONS MANAGER POTASSIUM Early AM 04/01/2024 6:22 AM CASH APPLICATIONS MANAGER SODIUM Early AM 04/01/2024 6:22 AM CASH APPLICATIONS MANAGER HEMOGLOBIN Early AM 03/31/2024 6:21 AM CASH APPLICATIONS MANAGER WHITE BLOOD COUNT Early AM 03/31/2024 6:2 1 AM CASH APPLICATIONS MANAGER MAGNESIUM Early AM 03/31/2024 6:21 AM CASH APPLICATIONS MANAGER CREATININE Early AM 03/31/2024 6:21 AM CASH APPLICATIONS MANAGER POTASSIUM Early AM 03/31/2024 6:21 AM CASH APPLICATIONS MANAGER SODIUM Early AM 03/31/2024 6:21 AM CASH APPLICATIONS MANAGER HCHG SUSCEPTIBILITY AEROBIC CALIX STAT 03/30/2024 11:35 PM CASH APPLICATIONS MANAGER URINALYSIS MICROSCOPIC STAT 11:35 PM CASH APPLICATIONS MANAGER URINE CULTURE STAT 03/30/2024 11:35 PM CASH APPLICATIONS MANAGER UA W/ SEDIMENT EXAM REFLEXED PER CRITERIA STAT 03/30/2024 11:35 PM CASH APPLICATIONS MANAGER XR CHEST 1 VIEW PORTABLE STAT 03/30/2024 11:11 PM CASH APPLICATIONS MANAGER CBC WITH AUTO DIFFERENTIAL STAT 03/30/2024 11:01 PM CASH APPLICATIONS MANAGER PROCALCITONIN STAT 03/30/2024 11:01 PM CASH APPLICATIONS MANAGER BASIC METABOLIC PANEL STAT 03/30/2024 11:01 PM CASH APPLICATIONS MANAGER CBC WITH AUTO DIFFERENTIAL STAT 03/30/2024 11:01 PM CASH APPLICATIONS MANAGER LACTATE VENOUS STAT 03/30/2024 11:01 PM CASH APPLICATIONS MANAGER BLOOD CULTURE STAT 03/30/2024 11:01 PM CASH APPLICATIONS MANAGER BLOOD CULTURE STAT 03/30/2024 11:01 PM CASH APPLICATIONS MANAGER INFLUENZA A/B PCR STAT 03/30/2024 11: 01 PM CASH APPLICATIONS MANAGER COVID-19 MOLECULAR Today 03/30/2024 11 :01 PM CASH APPLICATIONS MANAGER XR DXA BONE DENSITY 2 SITES AXIAL Routine 02/25/2020 3:20 PM CASH APPLICATIONS MANAGER Age-related osteoporosis without current pathological fracture Asymptomatic postmenopausal state from Last 3 Months or Most Recently Relevant to Health Maintenance Results * WHITE BLOOD COUNT (04/02/2024 6:24 AM CASH APPLICATIONS MANAGER) Only the most recent of3 resultswithin the time period is included. WHITE BLOOD COUNT 6.4 4.5 - 11.0 thou/cu mm 04/02/2024 6:44 AM CASH APPLICATIONS MANAGER [facility] Blood BLOOD SPECIMEN / Unknown Venipuncture / Unknown 04/02/2024 6:24 AM CASH APPLICATIONS MANAGER 04/02/2024 6:27 AM CASH APPLICATIONS MANAGER [employer] HEMATOLOGY Stefany l Result Performing Organization Address City/[facility]/ZIP Co de Phone Number [facility] [address] [place] [address] * (ABNORMAL) HEMOGLOBIN (04/02/2024 6:24 AM CASH APPLICATIONS MANAGER) Only the most recent of3 resultswithin the time period is included. HEMOGLOBIN 11.5(L) 12.0 - 16.0 g/dL 04/02/2024 6:44 AM CASH APPLICATIONS MANAGER [facility] MCV 99 80 - 100 fL 04/02/2024 6:44 AM [facility] Blood BLOOD SPECIMEN / Unknown Venipuncture / Unknown 04/02/2024 6:24 AM CASH APPLICATIONS MANAGER 04/02/2024 6:27 AM CASH APPLICATIONS MANAGER [facility] [employer] DO HEMATOLOGY Stefany l Result [facility] [address] [place], [place] [id number] * SODIUM (04/02/2024 6:24 AM CASH APPLICATIONS MANAGER) Only the most recent of3 resultswithin the time period is included. SODIUM 137 136 - 145 mmol/L 04/02/2024 6:49 AM CASH APPLICATIONS MANAGER [facility] Blood BLOOD SPECIMEN / Unknown Venipuncture / Unknown 04/02/2024 6:24 AM CASH APPLICATIONS MANAGER 04/02/2024 6:27 AM CASH APPLICATIONS MANAGER [facility] [employer] DO CHEMISTRY Stefany l Result Performing Organization Address City/[facility]/ZIP Co de Phone Number [facility] [address] [place] [address] * POTASSIUM (04/02/2024 6:24 AM CASH APPLICATIONS MANAGER) Only the most recent of3 resultswithin the time period is included. POTASSIUM 4.1 3.5 - 5.1 mmol/L 04/02/2024 6:49 AM [facility] Blood BLOOD SPECIMEN / Unknown Venipuncture / Unknown 04/02/2024 6:24 AM CASH APPLICATIONS MANAGER 04/02/2024 6:27 AM CASH APPLICATIONS MANAGER [facility] [employer] DO CHEMISTRY Stefany l Result Performing Organization Address [facility] de Phone Number [facility] [address] [place] [address] * (ABNORMAL) CREATININE (04/02/2024 6:24 AM CASH APPLICATIONS MANAGER) Only the most recent of3 resultswithin the time period is included. eGFR 76(L) >90 mL/min/1.7 3m2 04/02/2024 6:49 AM [facility] Comment:As of 2021, eG FR is calculated by the CKD-EPI creatinine equation without race adjustment. eGFR can be influenced by muscle mass, exercise, and diet. The reported eGFR is an estimation only and is only applicable if the renal function is stable. CREATININE 0.77 0.50 - 0.90 mg/dL 04/02/2024 6:49 AM [facility] Blood BLOOD SPECIMEN / Unknown Venipuncture / Unknown 04/02/2024 6:24 AM CASH APPLICATIONS MANAGER 04/02/2024 6:27 AM CASH APPLICATIONS MANAGER [employer] CHEMISTRY Stefany l Result Performing Organization Address [facility]/ZIP Co de Phone Number [facility] [address] [place] [address] * MAGNESIUM (03/31/2024 6:21 AM CASH APPLICATIONS MANAGER) [facility] MAGNESIUM 1.9 1.6 - 2.4 mg/dL 03/31/2024 6:49 AM CASH APPLICATIONS MANAGER [facility] Blood BLOOD SPECIMEN / Unknown Venipuncture / Unknown 03/31/2024 6:21 AM CASH APPLICATIONS MANAGER 03/31/2024 6:28 AM CASH APPLICATIONS MANAGER us Lavern Garcia MD CHEMISTRY Final Resu lt Performing Organization Address [facility] Co de Phone Number [facility] [address] [place] [address] * (ABNORMAL) SUSCEPTIBILITY AEROBIC BACTERIA (03/30/2024 11:35 PM CASH APPLICATIONS MANAGER) [facility] SUSC, AEROBIC BACTERIA SEE COMMENTS( A) 04/09/2024 11:26 AM CASH APPLICATIONS MANAGER [facility] Comment: RESULT: FINAL 04/09/2024 1126 SOURCE: URINE, Source = Urine. Organism ID if applicable= E. coli. Antimicrobials requested= Fosfomycin. SUSCEPTIBILITY, AEROBIC, ERI FINAL ESCHERICHIA COLI Organism identified by client. Organism ESCHERICHIA COLI Antibiotic ERI (mcg/mL) Interpretation Fosfomycin <=64 S S=SUSCEPTIBLE I=INTERMEDIATE R=RESISTANT NS=NONSUSCEPTIBLE SDD=SUSCEPTIBLE DOSE DEPENDENT Test Performed by: [address] [address] Engineering Operator: Maris Glynn Ph.D.; CLIA# [id number] Urine URINE SPECIMEN / Unknown Non-Blood / Unknown 03/30/2024 11:35 PM CASH APPLICATIONS MANAGER 04/04/2024 11:22 AM CASH APPLICATIONS MANAGER us Rajwinder HERNANDEZ MICROBIOLOGY Final Result [address] [address], [place] [phone] * (ABNORMAL) URINALYSIS MICROSCOPIC (03/30/2024 11:35 PM CASH APPLICATIONS MANAGER) RBC 0-2 0-2, None Seen /HPF 03/30/2024 11:51 PM [facility] WBC >100(A) 0-2, 3-5, None Seen /HPF 03/30/2024 11:51 PM [facility] BACTERIA Many(A) None Seen, Rare, Few Bacteria/ HPF 03/30/2024 11:51 PM [facility] EPITHELIAL CELLS Few None Seen, Few Epi/HPF 03/30/2024 11:51 PM [facility] YEAST Present(A) (none) 03/30/2024 11:51 PM [facility] WHITE CELL CLUMPS Present(A) (none) 03/30/2024 11:51 PM [facility] Urine URINE SPECIMEN / Unknown Non-Blood / Unknown 03/30/2024 11:35 PM CASH APPLICATIONS MANAGER 03/30/2024 11:41 PM CASH APPLICATIONS MANAGER us Rajwinder HERNANDEZ URINE Final Result [facility] [address] [place] [address] * (ABNORMAL) URINE CULTURE (03/30/2024 11:35 PM CASH APPLICATIONS MANAGER) CULTURE RESULT(A) 04/09/2024 2:47 PM CASH APPLICATIONS MANAGER [facility] CULTURE >100,000 CFU/mL Escherichia coli 04/09/2024 2:47 PM CASH APPLICATIONS MANAGER [facility] Comment: Sent to [facility], [place], [place] for susceptibility - Fosfomycin See separate report. ESBL-positive (Extended-spectrum beta-lactamase); multidrug-resistant organism. Urine URINE SPECIMEN / Unknown Non-Blood / Unknown 03/30/2024 11:35 PM CASH APPLICATIONS MANAGER 03/30/2024 11:41 PM CASH APPLICATIONS MANAGER Narrative Organism Antibiotic Method Susceptibility Escherichia coli [...] Rajwinder HERNANDEZ MICROBIOLOGY Edited Result - Final [facility] [address] [place] [address], [place] * (ABNORMAL) UA W/ SEDIMENT EXAM REFLEXED PER CRITERIA (03/30/2024 11:35 PM CASH APPLICATIONS MANAGER) COLOR Yellow Yellow Color 03/30/2024 11:51 PM [facility] CLARITY Slightly Cloudy(A) Clear Clarity 03/30/2024 11:51 PM [facility] SPECIFIC GRAVITY,URINE 1.020 1.010, 1.015, 1.020, 1.025 03/30/2024 11:51 PM [facility] PH,URINE 6.0 6.0, 7.0, 8.0, 5.5, 6.5, 7.5, 8.5 03/30/2024 11:51 PM [facility] UROBILINOGEN, QUALITATIVE Normal Normal EU/dl 03/30/2024 11:51 PM [facility] PROTEIN, URINE 30(A) Negative mg/dL 03/30/2024 11:51 PM [facility] GLUCOSE, URINE Negative Negative mg/dL 03/30/2024 11:51 PM [facility] KETONES,URINE Negative Negative mg/dL 03/30/2024 11:51 PM [facility] BILIRUBIN,URI NE Negative Negative 03/30/2024 11:51 PM [facility] OCCULT BLOOD,URINE Trace(A) Negative 03/30/2024 11:51 PM [facility] NITRITE Positive(A) Negative 03/30/2024 11:51 PM [facility] LEUKOCYTE ESTERASE Large(A) Negative 03/30/2024 11:51 PM [facility] Urine URINE SPECIMEN / Unknown Non-Blood / Unknown 03/30/2024 11:35 PM CASH APPLICATIONS MANAGER 03/30/2024 11:41 PM CASH APPLICATIONS MANAGER us Rajwinder HERNANDEZ URINE Final Result [facility] [address] [place] [address] * XR CHEST 1 VIEW PORTABLE (03/30/2024 11:11 PM CASH APPLICATIONS MANAGER) Anatomical Region Laterality Modality HEART, THORAX, CHEST Digital Rad iography 03/30/2024 11:4 3 PM CASH APPLICATIONS MANAGER Impressions 03/30/2024 11:43 PM CASH APPLICATIONS MANAGER No evidence of an acute pulmonary process in the setting of emphysema. Dictated by Edil Mendoza MD @ 03/30/2024 11:43:52 PM (Electronically Signed) Narrative 03/30/2024 11:43 PM CASH APPLICATIONS MANAGER For Patients: As a result of the [...] Result * COVID-19 MOLECULAR (03/30/2024 11:01 PM CASH APPLICATIONS MANAGER) COVID 19 [facility] Not detected Not detected 03/30/2024 11:47 PM [facility] TESTING LABORATORY [facility] 03/30/2024 11:47 PM CASH APPLICATIONS MANAGER [facility] Comment:Specimen submitted t o [facility] for testing. Other SPECIMEN FROM NASOPHARYNGEAL STRUCTURE / Unknown Non-Blood / Unknown 03/30/2024 11:01 PM CASH APPLICATIONS MANAGER 03/30/2024 11:07 PM CASH APPLICATIONS MANAGER Rajwinder HERNANDEZ MICROBIOLOGY Final Result [facility] [address] [place] [address] * INFLUENZA A/B PCR (03/30/2024 11:01 PM CASH APPLICATIONS MANAGER) [facility] INFLUENZA A PCR NOT Detected 03/30/2024 11:47 PM [facility] INFLUENZA B PCR NOT Detected 03/30/2024 11:47 PM [facility] Other SPECIMEN FROM NASOPHARYNGEAL STRUCTURE / Unknown Non-Blood / Unknown 03/30/2024 11:01 PM CASH APPLICATIONS MANAGER 03/30/2024 11:07 PM CASH APPLICATIONS MANAGER Rajwinder HERNANDEZ MICROBIOLOGY Final Result Performing Organization Address [facility]/ZIP Co de Phone Number [facility] [address] [place] [address] * (ABNORMAL) CBC WITH AUTO DIFFERENTIAL (03/30/2024 11:01 PM CASH APPLICATIONS MANAGER) Pathologist [facility] WHITE BLOOD COUNT 8.0 4.5 - 11.0 thou/cu mm 03/30/2024 11:12 PM [facility] RED BLOOD COUNT 3.88(L) 4.00 - 5.20 mil/cu mm 03/30/2024 11:12 PM [facility] HEMOGLOBIN 12.3 12.0 - 16.0 g/dL 03/30/2024 11:12 PM [facility] HEMATOCRIT 38.0 33.0 - 51.0 % 03/30/2024 11:12 PM [facility] MCV 98 80 - 100 fL 03/30/2024 11:12 PM [facility] MCH 31.7 26.0 - 34.0 pg 03/30/2024 11:12 PM [facility] MCHC 32.4 32.0 - 36.0 g/dL 03/30/2024 11:12 PM [facility] RDW 14.5 11.5 - 15.5 % 03/30/2024 11:12 PM [facility] PLATELET COUNT 298 140 - 440 thou/cu mm 03/30/2024 11:12 PM [facility] MPV 9.7 6.5 - 11.0 fL 03/30/2024 11:12 PM [facility] % NEUT 74.3 % 03/30/2024 11:12 PM [facility] % LYMPH 15.7 % 03/30/2024 11:12 PM [facility] % MONO 9.0 % 03/30/2024 11:12 PM [facility] % EOS 0.6 % 03/30/2024 11:12 PM [facility] % BASO 0.4 % 03/30/2024 11:12 PM [facility] ABSOLUTE NEUTROPHILS 6.0 1.7 - 7.0 thou/cu mm 03/30/2024 11:12 PM [facility] ABSOLUTE LYMPHOCYTES 1.3 0.9 - 2.9 thou/cu mm 03/30/2024 11:12 PM [facility] ABSOLUTE MONOCYTES 0.7 <0.9 thou/cu mm 03/30/2024 11:12 PM [facility] ABSOLUTE EOSINOPHILS 0.1 <0.5 thou/cu mm 03/30/2024 11:12 PM [facility] ABSOLUTE BASOPHILS 0.0 <0.3 thou/cu mm 03/30/2024 11:12 PM [facility] Blood BLOOD SPECIMEN / Unknown Butterfly / Unknown 03/30/2024 11:01 PM CASH APPLICATIONS MANAGER 03/30/2024 11:08 PM CASH APPLICATIONS MANAGER Rajwinder HERNANDEZ HEMATOLOGY Final Result Performing Organization Address City/[facility]/ZIP Co de Phone Number [facility] [address] [place] [address] * LACTATE VENOUS (03/30/2024 11:01 PM CASH APPLICATIONS MANAGER) LACTATE,VENOUS 0.9 0.5 - 2.0 mmol/L 03/30/2024 11:28 PM CASH APPLICATIONS MANAGER [facility] Blood BLOOD SPECIMEN / Unknown Butterfly / Unknown 03/30/2024 11:01 PM CASH APPLICATIONS MANAGER 03/30/2024 11:08 PM CASH APPLICATIONS MANAGER Rajwinder HERNANDEZ CHEMISTRY Final Result Performing Organization Address [facility]/ZIP Co de Phone Number [facility] [address] [place] [address] * PROCALCITONIN (03/30/2024 11:01 PM CASH APPLICATIONS MANAGER) PROCALCITONIN 0.08 ng/ml 03/30/2024 11:39 PM CASH APPLICATIONS MANAGER [facility] Blood BLOOD SPECIMEN / Unknown Butterfly / Unknown 03/30/2024 11:01 PM CASH APPLICATIONS MANAGER 03/30/2024 11:07 PM CASH APPLICATIONS MANAGER Narrative [facility] - 03/30/2024 11:39 PM CASH APPLICATIONS MANAGER Procalcitonin for initial assessment of Lower Respiratory [...] SEND OUTS Final Result Performing Organization Address [facility]/ZIP Co de Phone Number [facility] [address] [place] [address] * BLOOD CULTURE X2 (03/30/2024 11:01 PM CASH APPLICATIONS MANAGER) Only the most recent of2 resultswithin the time period is included. CULTURE No Growth. 04/05/2024 8:17 AM CASH APPLICATIONS MANAGER [facility] Blood BLOOD SPECIMEN / Unknown Butterfly / Unknown 03/30/2024 11:01 PM CASH APPLICATIONS MANAGER 03/30/2024 11:08 PM CASH APPLICATIONS MANAGER Rajwinder HERNANDEZ MICROBIOLOGY Final Result Performing Organization Address [facility] Co de Phone Number [facility] [address] [place] [address] * (ABNORMAL) BASIC METABOLIC PANEL (03/30/2024 11:01 PM [facility]) SODIUM 138 136 - 145 mmol/L 03/30/2024 11:27 PM [facility] POTASSIUM 4.3 3.5 - 5.1 mmol/L 03/30/2024 11:27 PM [facility] CHLORIDE 104 98 - 107 mmol/L 03/30/2024 11:27 PM [facility] CO2,TOTAL 25 22 - 29 mmol/L 03/30/2024 11:27 PM [facility] ANION GAP 9 5 - 18 03/30/2024 11:27 PM [facility] GLUCOSE 115(H) 70 - 99 mg/dL 03/30/2024 11:27 PM [facility] CALCIUM 10.0 8.8 - 10.4 mg/dL 03/30/2024 11:27 PM [facility] Comment: Reference ranges for this test were updated on 02/26/2024 to reflect our healthy population more accurately. Reference range changes are not retroactively applied to results, but previous results using the same methodology can be interpreted in the context of the new reference range. BUN 22 8 - 23 mg/dL 03/30/2024 11:27 PM [facility] CREATININE 0.85 0.50 - 0.90 mg/dL 03/30/2024 11:27 PM [facility] BUN/CREAT RATIO 26(H) 10 - 20 11:27 PM [facility] eGFR 68(L) >90 mL/min/1. 73m2 03/30/2024 11:27 PM [facility] Comment:As of 2021, eG FR is calculated by the CKD-EPI creatinine equation without race adjustment. eGFR can be influenced by muscle mass, exercise, and diet. The reported eGFR is an estimation only and is only applicable if the renal function is stable. Blood BLOOD SPECIMEN / Unknown Butterfly / Unknown 03/30/2024 11:01 PM CASH APPLICATIONS MANAGER 03/30/2024 11:07 PM [facility] Rajwinder HERNANDEZ CHEMISTRY Final Result [facility] [address] [place] [address] * (ABNORMAL) XR DXA BONE DENSITY 2 SITES AXIAL (02/25/2020 3:20 PM CASH APPLICATIONS MANAGER) Anatomical Region Laterality Modality Spine, HIPS, HIPL, HIPR Bone Den sitometry Narrative 02/27/2020 8:13 AM CASH APPLICATIONS MANAGER Please see scanned document for results of this study. Dayana Diaz DO DEXA Final Result from [...] coli +MDRO, 06/18/2023, urine, ESBL+ E. 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
--- OUTSIDE RECORDS SUMMARY | 2024-06-12 13:50 | XMS_ITS ---
Author Organization [facility] Neurology [facility] Address [address] [place] [address] Care Team Providers Care Slip Maker Name Role Phone SELF, REFERRED Primary Care Provider Zaynab Hidalgo Unavailable [phone] REASON FOR VISIT Parkinson's disease Encounters Encounter Location Date Provider Diagnosis [facility] Neurology [facility] [address] [place] [address] 08/02/2023 Zaynab Roca Plan Of Treatment No Information Progress Notes * GRACIA RMDOB:1940 (83 yo F)Acc No.[id number]:08/02/2023 Progress Notes Patient: GRACIA KAUFMAN Provider: RAD Posey MD :1940 A ge:83 Y S ex:Female Date:08/02/2023 Address:[address], [place] Pcp:REFERRED SELF Subjective: * Chief Complaints: * 1 . Parkinson's disease. * Medical History: Objective: * Vitals: Assessment: Plan: * Treatment: * * Electronic signature of GERMANIA Keenan on 06/12/2024 at 12:49 PM MST Sign off status: Pending * Provider: RAD Posey MD Date: 0 08/02/2023 Generated for Angela alvarez/Tommy/eTransmitting on: 0 06/12/2024 12:49 PM MST
--- OUTSIDE RECORDS SUMMARY | 2024-06-12 13:51 | XMS_ITS ---
Author Organization Unknown Address [address] [place] [address] Phone Care Team Providers Care Architectural Drafting Instructor Name Role Phone JOHANA DUGGAN Registered Nurse Unavailable BUTCH WHATLEY Attending Unavailable WILLIAM KELLEY Unavailable UNKNOWN Primary Unavailable Results URINALYSIS W/REFLEX TO CULTU RE - Collect Date/Time: 07/25/2022 17:[address] [facility] H OS ID: [id number] [address] [place], [place], [address] LOINC: Test Value Unit Reference Range Code [...] - Collect Date/Ti me: 07/25/2022 14:[address] [facility] H OS ID: [id number] [address] [place], [place], [address] LOINC: Test Value Unit Reference Range Code Code System Flag PROTIME 9.6 Secs L=9.0 H=11.2 INR 1.0 L=0.9 H=1.1 PTT 22.5 Secs L=22.0 H=30.0 PCR SARS COV-2_FLU_RSV - Col lect Date/Time: 07/25/2022 14:[address] [facility] H OS ID: [id number] [address] [place], [place], [address] LOINC: Test Value Unit Reference Range Code Code System Flag SARS SPECIMEN SOURCE Nasopharyngeal RSV NEGATIVE NORMAL: NEGATIVE INFLUENZA A NEGATIVE NORMAL: NEGATIVE INFLUENZA B NEGATIVE NORMAL: NEGATIVE SARS COVID NEGATIVE NORMAL: NEGATIVE CBC W/AUTO DIFF - Collect Da te/Time: 07/25/2022 14:[address] [facility] H OS ID: [id number] [address] [facility] [address] LOINC: Test Value Unit Reference Range Code [...] NO CMP - Collect Date/Time: 07/2022 14:37 [facility] OS ID: [id number] [address] [place], [address] LOINC: Test Value Unit Reference Range Code [...] ompleted: 07/25/2022 14:54 LOINC: \TM00\\12PI\\DRAo\\BM09\\PGN o\\MRB2\ \MRHo\ [facility] [address] [place] [address] ---------NAME--------- NUMBER SEX AGE ADMIT DISC. XRAY# F/C TYPE SUJEY FAGAN [id number] F 82 07/25/22 [id number] MB E/R DATE OF : 1940 M/R# [id number] PH#: [phone] ED-3 \MRHx\ LOCATION: TRANSCRIBED: 07/25/22 14:53 CT CERVICAL [place]INE [place] [id number] COMPLETED:07/25/22 14:54 NOV [id number] {SPINE PROCED REASON: FALL PHYSICIAN: Ariana THOMAS [...] Completed: 07/25/2022 14:46 LOINC: \TM00\\12PI\\DRAo\\BM09\\PGN o\\MRB2\ \MRHo\ [facility] [address] [place] [place] [address] ---------NAME--------- NUMBER SEX AGE ADMIT DISC. XRAY# F/C TYPE SUJEY FAGAN [id number] F 82 07/25/22 [id number] MB E/R DATE OF : 1940 M/R# [id number] PH#: [phone] ED-3 \MRHx\ LOCATION: TRANSCRIBED: 07/25/22 14:44 [place] [id number] COMPLETED:07/25/22 14:46 NOV [id number] {REASON FOR TEST: EXTERNAL INJURY/TRAUMA PHYSICIAN: Ariana [...] Completed: 07/25/2022 14:42 LOINC: \TM00\\12PI\\DRAo\\BM09\\PGN o\\MRB2\ \MRHo\ [facility] [address] [place] [address] ---------NAME--------- NUMBER SEX AGE ADMIT DISC. XRAY# F/C TYPE SUJEY FAGAN [id number] F 82 07/25/22 [id number] MB E/R DATE OF : 1940 M/R# [id number] #: [id number] ED-3 \MRHx\ LOCATION: TRANSCRIBED: 07/25/22 14:37 XR CHEST 1 VIEW [id number] COMPLETED:07/25/22 14:42 NOV 11689 {REASON FOR CHEST: COUGH PHYSICIAN: Ariana THOMAS [...] Smoking History Current every day smoker [birth year][id number] Sex Female Vital Signs Vital Sign Value Unit [place] Value [place] Unit Date/Time Recent/Initial? Code Code System Body Mass Index 17.74 kg/m2 07/25/2022 14:12 Initial 30593 -5 LOINC Systolic Blood Pressure 141 mm[Hg] [...] Saturation 95 % 2022 18:08 Most Recent 14494 -5 LOINC O2 Saturation 97 % 2022 14:12 Initial 67425 -5 LOINC Pulse 89.0 /min 07/25/2022 18:08 Most Recent 8867- 4 LOINC Pulse 63.0 /min 07/25/2022 14:12 Initial 8867- 4 LOINC Respiration 16 /min 07/26/19 18:08 Most Recent 9279- 1 [facility] Respiration 16 /min 07/26/19 14:12 Initial 9279- 1 [facility] Temperature 36.3 Latisha 97.4 F 07/26/19 14:12 Initial 8310- 5 [facility] Weight 47.63 kg 105.00 lbs 07/25/2022 14:12 Initial 85627 -7 [facility] Medications Medication Start Date End Date Route Frequency Dose Code Code System Medication Instructions Home Meds Acetaminophen 500MG Oral Capsule 05/08/2022 Unknown ORAL DAILY 1000 MILLIGRAMS 789958 RxNorm TAKE 1000 MILLIGRAMS ORAL DAILY Atorvastatin Calcium 20MG Oral Tablet 05/08/2022 Unknown ORAL AT BEDTIME 20 MILLIGRAMS 945700 RxNorm TAKE 20 MILLIGRAMS ORAL AT BEDTIME Cranberry 500MG Oral Capsule 05/08/2022 Unknown ORAL AT BEDTIME 500 MILLIGRAMS 3879482 RxNorm TAKE 500 MILLIGRAMS ORAL AT BEDTIME Docusate 100MG Oral Capsule, Liquid Filled 05/08/2022 Unknown ORAL TWICE A DAY 100 MILLIGRAMS 1282191 RxNorm TAKE 100 MILLIGRAMS ORAL TWICE A DAY Donepezil HCl 10MG Oral Tablet 05/08/2022 Unknown ORAL DAILY 10 MILLIGRAMS 942519 RxNorm TAKE 10 MILLIGRAMS ORAL DAILY Ibuprofen 200MG Oral Tablet 05/08/2022 Unknown ORAL AT BEDTIME 400 MILLIGRAMS 032667 RxNorm TAKE 400 MILLIGRAMS ORAL AT BEDTIME Lisinopril 10MG Oral Tablet 05/08/2022 Unknown ORAL DAILY 10 MILLIGRAMS 810449 RxNorm TAKE 10 MILLIGRAMS ORAL DAILY Mirtazapine 7.5MG Oral Tablet 05/08/2022 Unknown ORAL AT BEDTIME 7.5 MILLIGRAMS 026310 RxNorm TAKE 7.5 MILLIGRAMS ORAL AT BEDTIME Vitamin B12 1000MCG Oral Tablet 05/08/2022 Unknown ORAL DAILY 1000 MCG 995367 RxNorm TAKE 1000 MCG ORAL DAILY Vitamin C 1000MG Oral Tablet 05/08/2022 Unknown ORAL DAILY 1000 MILLIGRAMS 352587 RxNorm TAKE 1000 MILLIGRAMS ORAL DAILY Vitamin D3 10 MCG Oral Capsule, Liquid Filled 05/08/2022 Unknown ORAL DAILY 10 MCG RxNorm TAKE 10 MCG ORAL DAILY Cefuroxime 250MG Oral Tablet 05/08/2022 Unknown ORAL TWICE A DAY 2 TABLET 734822 RxNorm TAKE 2 TABLET ORAL TWICE A DAY Nitrofurantoin 100MG Oral Capsule 07/25/2022 Unknown ORAL EVERY 12 HOURS 1 CAPSULE 3977423 RxNorm TAKE 1 CAPSULE ORAL EVERY 12 [...] Date Status Code Code System SYNCOPE active 291743836 SNOMED-CT UTI active 59564202 SNOMED-CT CONTUSION OF HEAD, INITIAL ENCOUNTER active 708744220 SNOMED-CT HYPERTENSION 05/07/2022 resolved 20093591 SNOMED -CT URINARY TRACT INFECTION 05/07/2022 resolved 45524 005 SNOMED-CT Allergies and Adverse Reactions Allergy Substance Reaction Severity Start Date Concern Status Co de Code System No Known Drug Allergies Active 485736964 SNOMED-CT Plan of Treatment No Data Found Personal Care Team Section Performer Name Performer Role Active Date Inactive Da barak
--- OUTSIDE RECORDS SUMMARY | 2024-06-12 13:51 | XMS_ITS | Patient Health Record ---
Author Organization [facility] Address [address] [place] [address] Care Team Providers Care Music Mixer Name Role Phone SELF, REFERRED Primary Care Provider Zaynab Hidalgo Unavailable [phone] Reason For Referral No Information Plan Of Treatment No Information Insurance Providers Payer Name Payer Address Payer Phone Subscriber Number Group Number Insured Name Patient Relationship to Insured Coverage Start Date Coverage End Date BCBS OF [place] [address] [place] [address] [id number] GRACIA RM Self - patient is the insured MEDICARE [address] [place] [address] [phone] [id number] GRACIA RM Self - patient is the insured
--- NOTE | 2024-06-12 14:47 | CRLHL7_ITS ---
For Patients: As a result of the Cures Act, medical imaging exams and procedure reports are released immediately into your electronic medical record. You may view this report before your referring provider. If you have questions, please contact your health care provider. INDICATION: : Cough, weakness COMPARISON: None TECHNIQUE: On view(s) of the chest FINDINGS/IMPRESSION: The cardiomediastinal silhouette and pulmonary vasculature are unremarkable. Faint diffuse interstitial/airspace opacities seen in the right mid to lower lung zone, concerning for an acute infectious/inflammatory process in the appropriate clinical context. There is no pleural effusion or pneumothorax. No displaced fractures. Dictated by Michel Dubois MD @ 06/12/2024 3:26:49 PM (Electronically Signed)
--- NOTE | 2024-06-12 14:52 | ED_ITS ---
HPI - General Adult General Date Seen: 06/12/24 Chief complaint: Urogenital Problems, Female Stated complaint: UTI Time Seen by Provider: 06/12/24 14:40 History of Present Illness HPI narrative: Patient is an 83-year-old woman here with her daughter. Patient has dementia, daughter provides history. According to her daughter, she was diagnosed a few days ago with a UTI at [facility] in [place] where she lives. This is an assisted memory care unit. Her is generally there with her but he is out of town. 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 Ella castellanos feels she has not improved, she seemed shaky and weak, off baseline in terms of her alertness. No fevers that the daughter is aware of. She has also had a junky sounding cough. They tested her for COVID which was negative but no other viral testing was done. Patient denies any pain, not able to provide any other history. Related Data Home Medications ?Medication ?Instructions ?Recorded ?Confirmed albuterol sulfate 90 mcg/actuation 1 puff inhalation Q4H PRN 05/05/24 06/12/24 aerosol inhaler cranberry 500 mg capsule 500 mg PO BID 05/05/24 06/12/24 estradiol 0.01% (0.1 mg/gram) 1 appful vaginal .2XWEEK 05/05/24 06/12/24 vaginal cream lisinopril 5 mg tablet 5 mg PO DAILY 05/05/24 06/12/24 mirtazapine 7.5 mg tablet 7.5 mg PO HS 05/05/24 06/12/24 Lactobacillus 1 tab PO DAILY 05/06/24 06/12/24 acidophilus-Lactbacill.bifidus 1 billion cell oral wafer acetaminophen 500 mg capsule 500 mg PO Q4H PRN 05/06/24 06/12/24 docusate sodium 100 mg capsule 100 mg PO BID 05/06/24 06/12/24 psyllium (Hydrocil oral powder) 2 tsp PO DAILY 05/06/24 06/12/24 Previous Rx's ?Medication ?Instructions ?Recorded nirmatrelvir 150 mg-ritonavir 100 2 ea PO BID #5 ea 06/14/24 mg tablets in a dose pack (NaHerelovid) Allergies Allergy/AdvReac Type Severity Reaction Status Date / Time No Known Allergies Allergy Unknown Unverified 07/30/23 08:32 Review of Systems Status of ROS: Reports: unobtainable due to medical condition [facility] Medical History (Updated 06/14/24 @ 15:20 by Precious Cardoza MD) Vascular dementia ?F01.50 - Vascular dementia, unspecified severity, without behavioral disturbance, psychotic disturbance, mood disturbance, and anxiety (ICD-10) POLST (Physician Orders for Life-Sustaining Treatment) ?Z78.9 - Other specified health status (ICD-10) Frail elderly ?R54 - Age-related physical debility (ICD-10) ESBL (extended spectrum beta-lactamase) producing bacteria infection ?A49.9 - Bacterial infection, unspecified (ICD-10) ?Z16.12 - Extended spectrum beta lactamase (ESBL) resistance (ICD-10) 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 Demetrio visits daily (medical decision maker). [email or web address] in [place]. DNR/DNI. What is your current living situation?: I presently have a place to live Problems where you live: no known problems Problems where you live details: na In the past 12 months, utilities in danger of being shut off: no In past 12 months, lack of transportation kept you from medical appts, meetings, work, or getting things needed for daily living: no In the past 12 mos, have been you worried that your food would run out before you had money to buy more?: never true In the past 12 mos, the food you bought just didn't last and you didn't have money to buy more?: never true Highest level of school completed/degree received: high school graduate Smoking Status: Former smoker How often do you have a drink containing alcohol: never AUDIT-C Alcohol total score: 0 Non-prescribed substance use: denies use Caffeine: Yes How often does anyone, including family, friends and others, physically hurt you : never How often does anyone, including family, friends and others, insult or talk down to you: never How often does anyone, including family, friends and others, threaten you with harm: never How often does anyone, including family, friends and others, scream or curse at you: never service: No Exam Narrative: Exam Narrative: Vital signs reviewed In general, a somnolent but arousable elderly woman. She looks frail. Head: Normocephalic, atraumatic. Eyes: Sclera clear. Pupils equal and reactive. Face is sort of sunken. ENT: Mucous membranes a little dry peer Neck: Supple without adenopathy. Heart: Regular rate and rhythm without murmur. Lungs: Clear anteriorly, no increased work of breathing. Abdomen: Soft, nontender to palpation. Extremities: Well perfused, pulses intact. No significant edema. Neurologic: She sleeps when not being directly interacted with, does rouse to voice. Answers simple questions, yes no. Skin: Warm, dry well perfused. Affect: Normal. Const: Vital Signs, click to edit/add: Vital Signs - 24 hr 06/12/24 13:53 Temperature 98.6 F Pulse Rate [Pulse Oximeter] 102 H Respiratory Rate 20 Blood Pressure [Ri ght Upper Arm] 125/85 Pulse Oximetry 91 Oxygen Delivery Me thod Room Air Course Course ED Course: In talking to her daughter it sounds as if when she gets like this generally speaking she comes into the hospital. Will obtain labs including a blood culture, lactate, procalcitonin. No overt signs of sepsis at this time, very minimally tachycardic on arrival with a pulse of 102. Will evaluate for UTI or pneumonia, metabolic derangement, dehydration. No focal neurologic findings. Chest x-ray by my review suggests an infiltrate in the right base, radiology report reviewed and agrees there may be something developing here. I do not have the urine back yet. Review of prior records and discussion with hospitalist, they have used meropenem for her previously secondary to her ESBL history. I have ordered a dose of that for her. We will plan to keep her in the hospital for treatment of this. Daughter notes that they have had some discussions around hospice but have not yet made that decision, and with her out of town are not able to do so at this time. Vital Signs Vital signs: Initial Vital Signs Temperature 98.6 F 06/12/24 13:53 Temperature Source Temporal Artery Scan 06/12/24 13:53 Pulse Rate 102 H 06/12/24 13:53 Respiratory Rate 20 06/12/24 13:53 Blood Pressure 125/85 06/12/24 13:53 Blood Pressure Mean 98 06/12/24 13:53 Blood Pressure Position Sitting 06/12/24 13:53 Pulse Oximetry 91 06/12/24 13:53 Oxygen Delivery Method Room Air 06/12/24 13:53 Vital Signs Temperature 98.6 F 06/12/24 13:53 Pulse Rate 102 H 06/12/24 13:53 Respiratory Rate 20 06/12/24 13:53 Blood Pressure 125/85 06/12/24 13:53 Pulse Oximetry 91 06/12/24 13:53 Oxygen Delivery Method Room Air 06/12/24 13:53 Temperature 98.1 F 06/14/24 14:00 Pulse Rate 98 06/14/24 14:00 Respiratory Rate 18 06/14/24 14:00 Blood Pressure 147/101 H 06/14/24 14:00 Pulse Oximetry 92 06/14/24 11:00 Oxygen Delivery Method Room Air 06/14/24 11:00 Medications Administered Medications: Discontinued Medications Generic Name Dose Route Start Last Admin Trade Name Freq PRN Reason Stop Dose Admin Docusate Sodium 100 mg 06/12/24 21:00 06/14/24 08:51 Docusate Sodium 100 Mg Capsule PO 100 mg BID UTE Administration Enoxaparin Sodium 30 mg 06/13/24 21:00 06/13/24 21:10 Enoxaparin 30 Mg/0.3ml Inj SUBCUT 30 mg Q24H UTE Administration Sodium Chloride 500 mls @ 500 mls/hr 06/12/24 14:47 06/12/24 16:20 0.9 % Sodium Chloride 500 Ml IV 06/12/24 15:46 Infused .Q1H ONE Infusion Ertapenem 1 gm/ Sodium 100 mls @ 200 mls/hr 06/12/24 15:42 06/12/24 16:26 Chloride IVPB 06/12/24 15:43 Infused ONCE ONE Infusion Lisinopril 5 mg 06/13/24 09:00 06/14/24 08:51 Lisinopril 5 Mg Tablet PO 5 mg DAILY UTE Administration Mirtazapine 3.75 mg 06/12/24 21:00 06/13/24 21:08 Mirtazapine 15 Mg Tablet PO 3.75 mg HS UTE Administration Nirmatrelvir/Ritonavir 2 each 06/12/24 21:00 06/14/24 08:52 Nirmatrelvir/Ritonavir 150/100 Pack PO 06/17/24 09:01 2 each BID UTE Administration Sodium Chloride 5 ml 06/12/24 21:00 06/14/24 08:52 Sodium Chloride 0.9 % (Flush) 10 Ml Syringe IVF 5 ml BID UTE Administration Medical Decision Making Lab Data Labs: Lab Results 06/12/24 06/12/24 06/12/24 Range/Units 14:48 15:21 16:00 WBC 7.07 (4.50-11.00) K/uL RBC 4.10 (4.00-5.20) m/uL Hgb 12.5 (12.0-16.0) gm/dL Hct 40.1 (33.0-51.0) % MCV 98 (80-100) fL MCH 31 (26-34) pg MCHC 31 L (32-36) gm/dL RDW Coeff of Aurelio 15.0 (11.5-15.5) % Plt Count 266 (140-440) K/uL Neut % (Auto) 83.6 H (42.0-72.0) % Lymph % (Auto) 8.8 L (20-44) % Mcclain % (Auto) 7.1 (0.0-11.0) % Eos % (Auto) 0.0 (0.0-7.0) % Baso % (Auto) 0.1 (0.0-3.0) % Neut # (Auto) 5.90 (1.7-7.0) K/uL Lymph # (Auto) 0.60 L (0.90-2.90) K/uL Mcclain # (Auto) 0.50 (0.00-0.90) K/UL Eos # (Auto) 0.00 (0.00-0.50) K/uL Baso # (Auto) 0.01 (0.00-0.30) K/uL Abs Immat Gran (auto) 0.03 (0.00-0.30) K/uL Imm/Tot Granulo (auto) 0.4 % Sodium 139 (135-149) mmol/L Potassium 4.1 (3.6-5.1) mmol/L Chloride 106 (96-114) mmol/L Carbon Dioxide 25 (20-32) mmol/L Anion Gap 8 (7-15) mEq/L BUN 25 (7-30) mg/dL Creatinine 0.9 (0.5-1.5) mg/dL Estimated Creat Clear Estimated GFR 63 ml/min Glucose 112 (60-115) mg/dL Calcium 9.7 (8.4-10.6) mg/dL Total Bilirubin 0.3 (0.1-1.5) mg/dL Direct Bilirubin 0.2 (0.0-0.5) mg/dL AST 15 (12-35) U/L ALT 11 (4-35) U/L Alkaline Phosphatase 71 (40-150) U/L C-Reactive Protein 0.9 (0.5-1.0) mg/dL Total Protein 6.9 (6.0-8.3) g/dL Albumin 4.1 (3.3-5.0) g/dL Procalcitonin 0.06 (<0.50) ng/mL TSH 0.432 (0.270-4.200) uIU/mL Urine Color Yellow (Yellow) Urine Appearance Cloudy A (Clear) Urine pH 6.0 (5.0-8.5) Ur Specific [place] 1.020 (1.000-1.030) Urine Protein Negative (Negative) Urine Glucose (UA) Negative (Negative) Urine Ketones Negative (Negative) Urine Blood Negative (Negative) Urine Nitrite Negative (Negative) Urine Bilirubin Negative (Negative) Urine Urobilinogen 0.2 (0.2-1.0) Ur Leukocyte Esterase 2+ A (Negative) Urine RBC 0-2 (0-2) Urine WBC >100 A (0-5) Ur Squamous Epith Cells None (None-Few) Urine Bacteria None (None) SARS-CoV-2 (PCR) POSITIVE SARS-CoV-2 A (Negative) Influenza Type A (PCR) Negative PCR FLU A (Negative) Influenza Type B (PCR) Negative PCR FLU B (Negative) RSV (PCR) Negative PCR RSV (Negative) POC Troponin I 0.01 (0.01-0.04) ng/ml 06/13/24 Range/Units 06:23 WBC 3.87 L (4.50-11.00) K/uL RBC 3.85 L (4.00-5.20) m/uL Hgb 12.1 (12.0-16.0) gm/dL Hct 37.6 (33.0-51.0) % MCV 98 (80-100) fL MCH 31 (26-34) pg MCHC 32 (32-36) gm/dL RDW Coeff of Aurelio 15.1 (11.5-15.5) % Plt Count 246 (140-440) K/uL Neut % (Auto) 55.3 (42.0-72.0) % Lymph % (Auto) 24.0 (20-44) % Mcclain % (Auto) 19.4 H (0.0-11.0) % Eos % (Auto) 0.0 (0.0-7.0) % Baso % (Auto) 0.8 (0.0-3.0) % Neut # (Auto) 2.10 (1.7-7.0) K/uL Lymph # (Auto) 0.90 (0.90-2.90) K/uL Mcclain # (Auto) 0.80 (0.00-0.90) K/UL Eos # (Auto) 0.00 (0.00-0.50) K/uL Baso # (Auto) 0.00 (0.00-0.30) K/uL Abs Immat Gran (auto) 0.00 (0.00-0.30) K/uL Imm/Tot Granulo (auto) 0.5 % Sodium 141 (135-149) mmol/L Potassium 3.6 (3.6-5.1) mmol/L Chloride 108 (96-114) mmol/L Carbon Dioxide 26 (20-32) mmol/L Anion Gap 7 (7-15) mEq/L BUN 22 (7-30) mg/dL Creatinine 0.7 (0.5-1.5) mg/dL Estimated Creat Clear 30.08 Estimated GFR 85 ml/min Glucose 92 (60-115) mg/dL Calcium 9.2 (8.4-10.6) mg/dL Total Bilirubin (0.1-1.5) mg/dL Direct Bilirubin (0.0-0.5) mg/dL AST (12-35) U/L ALT (4-35) U/L Alkaline Phosphatase (40-150) U/L C-Reactive Protein (0.5-1.0) mg/dL Total Protein (6.0-8.3) g/dL Albumin (3.3-5.0) g/dL Procalcitonin 0.07 (<0.50) ng/mL TSH (0.270-4.200) uIU/mL Urine Color (Yellow) Urine Appearance (Clear) Urine pH (5.0-8.5) Ur Specific [place] (1.000-1.030) Urine Protein (Negative) Urine Glucose (UA) (Negative) Urine Ketones (Negative) Urine Blood (Negative) Urine Nitrite (Negative) Urine Bilirubin (Negative) Urine Urobilinogen (0.2-1.0) Ur Leukocyte Esterase (Negative) Urine RBC (0-2) Urine WBC (0-5) Ur Squamous Epith Cells (None-Few) Urine Bacteria (None) SARS-CoV-2 (PCR) (Negative) Influenza Type A (PCR) (Negative) Influenza Type B (PCR) (Negative) RSV (PCR) (Negative) POC Troponin I (0.01-0.04) ng/ml Imaging Data Chest x-ray: Attestation: I have reviewed the pertinent imaging results. Radiologist's impression: Patient: GRACIA RM Facility: [facility] . Site : 1940 Study: XRay-Chest PORTABLE-06/12/2024 3:14:04 PM Ordering Physician: Saad Choe Final Report: INDICATION: : Cough, weakness COMPARISON: None TECHNIQUE: On view(s) of the chest FINDINGS/IMPRESSION: The cardiomediastinal silhouette and pulmonary vasculature are unremarkable. Faint diffuse interstitial/airspace opacities seen in the right mid to lower lung zone, concerning for an acute infectious/inflammatory process in the appropriate clinical context. There is no pleural effusion or pneumothorax. No displaced fractures. Discharge Plan Discharge Clinical Impression: Urinary tract infection, ESBL (extended spectrum beta-lactamase) producing bacteria infection, Pneumonia Activity Level: Activity as Tolerated Discharge Diet: Regular Admit to: Assisted Living Discharge Potential: Fair Length of Stay: >90 days Can use facility standing orders?: Yes Code Status: DNR/DNI Oxygen: No Urinary Catheter: No Orders are good >30 days: Yes
[2024-06-12] MEDS: 0.9 % SODIUM CHLORIDE 500 ML 500 ML IV (15:20)
[2024-06-12 15:33] LABS: Basophils Absolute Auto 0.01 K/uL (0.00-0.30); Basophils Percent Auto 0.1 % (0.0-3.0); Hematocrit 40.1 % (33.0-51.0); Hemoglobin* 12.5 gm/dL (12.0-16.0); Immature Granulocytes Abs Auto 0.03 K/uL (0.00-0.30); Immature Granulocytes Pct Auto 0.4 %; Lymphocytes Percent Auto 8.8 % (20-44); Mean Corpuscular HGB Conc 31 gm/dL (32-36); Mean Corpuscular Hemoglobin 31 pg (26-34); Mean Corpuscular Volume 98 fL (80-100); Monocytes Percent Auto 7.1 % (0.0-11.0); Neutrophils Percent Auto 83.6 % (42.0-72.0); Platelet Count* 266 K/uL (140-440); White Blood Count* 7.07 K/uL (4.50-11.00)
[2024-06-12 15:40] LABS: Slide Review Reflex No
[2024-06-12 15:43] LABS: Albumin* 4.1 g/dL (3.3-5.0); Chloride* 106 mmol/L (96-114); Potassium* 4.1 mmol/L (3.6-5.1); Sodium* 139 mmol/L (135-149)
[2024-06-12 15:45] LABS: Creatinine* 0.9 mg/dL (0.5-1.5); Estimated Glomerular Filt Rate 63 ml/min
[2024-06-12 15:46] LABS: Alanine Aminotransferase* 11 U/L (4-35); Alkaline Phosphatase* 71 U/L (40-150); Anion Gap 8 mEq/L (7-15); Aspartate Amino Transferase* 15 U/L (12-35); Bilirubin Direct* 0.2 mg/dL (0.0-0.5); Bilirubin Total* 0.3 mg/dL (0.1-1.5); Blood Urea Nitrogen* 25 mg/dL (7-30); Carbon Dioxide* 25 mmol/L (20-32); Glucose* 112 mg/dL (60-115); Total Protein* 6.9 g/dL (6.0-8.3)
[2024-06-12 15:47] LABS: Calcium* 9.7 mg/dL (8.4-10.6)
[2024-06-12 15:49] LABS: C Reactive Protein* 0.9 mg/dL (0.5-1.0)
[2024-06-12] MEDS: ERTAPENEM 1 GM in 0.9 % SODIUM CHLORIDE Mini-bag 100 ML IVPB (15:56)
[2024-06-12 16:03] LABS: Procalcitonin* 0.06 ng/mL (<0.50)
[2024-06-12 16:12] LABS: PCR FLU A Negative PCR FLU A (Negative); PCR FLU B Negative PCR FLU B (Negative); PCR RSV Negative PCR RSV (Negative); SARS PCR* POSITIVE SARS-CoV-2 (Negative)
[2024-06-12 16:12] LABS: Troponin, Point-of-Care* 0.01 ng/ml (0.01-0.04)
--- OUTSIDE RECORDS SUMMARY | 2024-06-12 16:14 | XMS_ITS | Clinical Summary ---
Author Organization [employer] [facility] Address [address] [place] [id number] Care Team Providers Care Squeegee Finisher Name Role Phone Dayana Diaz Primary Care [...] Type Department Care Team Description 04/07/[address] [address] Dayana Diaz DO RETURNING CALL (POST HOSP) 04/04/2024 Patient Outreach [facility] [address] [place] [address] Keshia Greene, OTONIEL Primary RN Care Management; Hospital F/U ([facility]-04/03) 03/30/2024 10:17 PM OFFICE COMMUNICATION PROFESSOR - 04/03/2024 10:55 AM OFFICE COMMUNICATION PROFESSOR Hospital Encounter [facility] [address] [facility] [place] [address] Rajwindre Albright, DAVID Gracia, MD Jakob Velez, DO Masood Abreu, MD Sommer Stone, Lilibeth Platt, IRON INSTALLER Acute cystitis without hematuria (Primary Dx); Generalized weakness; Cough, unspecified type; History of ESBL E. 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 Not on file Not on file Obstetrics History Para Term AB IAB SAB Ectopic Multiple Livin g Live Births 4 4 Date Outcome GA Total Labor Labor/2nd/3rd Weight Sex Type Anes PTL Coni A1 A5 Name Clin Last Filed Vital Signs Vital Sign Reading Time Taken Comments Blood Pressure 155/85 04/03/2024 7:42 AM OFFICE COMMUNICATION PROFESSOR Pulse 71 04/03/2024 7:42 AM OFFICE COMMUNICATION PROFESSOR Temperature 36.8 C (98.3 F) 04/03/2024 7:42 AM OFFICE COMMUNICATION PROFESSOR Respiratory Rate 16 04/03/2024 7:42 AM OFFICE COMMUNICATION PROFESSOR Oxygen Saturation 93% 04/03/2024 7:42 AM OFFICE COMMUNICATION PROFESSOR Inhaled Oxygen Concentration - - Weight 54.5 kg (120 lb 3.2 oz) 03/30/2024 10:22 PM OFFICE COMMUNICATION PROFESSOR Height 162.6 cm (5' 4) 03/30/2024 10:22 PM OFFICE COMMUNICATION PROFESSOR Body Mass Index 20.63 03/30/2024 10:22 PM OFFICE COMMUNICATION PROFESSOR Plan of Treatment Health Maintenance Due Date [...] Comments HEMOGLOBIN Early AM 04/02/2024 6:24 AM OFFICE COMMUNICATION PROFESSOR WHITE BLOOD COUNT Early AM 04/02/2024 6:2 4 AM OFFICE COMMUNICATION PROFESSOR CREATININE Early AM 04/02/2024 6:24 AM OFFICE COMMUNICATION PROFESSOR POTASSIUM Early AM 04/02/2024 6:24 AM OFFICE COMMUNICATION PROFESSOR SODIUM Early AM 04/02/2024 6:24 AM OFFICE COMMUNICATION PROFESSOR WHITE BLOOD COUNT Early AM 04/01/2024 6:2 2 AM OFFICE COMMUNICATION PROFESSOR HEMOGLOBIN Early AM 04/01/2024 6:22 AM OFFICE COMMUNICATION PROFESSOR CREATININE Early AM 04/01/2024 6:22 AM OFFICE COMMUNICATION PROFESSOR POTASSIUM Early AM 04/01/2024 6:22 AM OFFICE COMMUNICATION PROFESSOR SODIUM Early AM 04/01/2024 6:22 AM OFFICE COMMUNICATION PROFESSOR HEMOGLOBIN Early AM 03/31/2024 6:21 AM OFFICE COMMUNICATION PROFESSOR WHITE BLOOD COUNT Early AM 03/31/2024 6:2 1 AM OFFICE COMMUNICATION PROFESSOR MAGNESIUM Early AM 03/31/2024 6:21 AM OFFICE COMMUNICATION PROFESSOR CREATININE Early AM 03/31/2024 6:21 AM OFFICE COMMUNICATION PROFESSOR POTASSIUM Early AM 03/31/2024 6:21 AM OFFICE COMMUNICATION PROFESSOR SODIUM Early AM 03/31/2024 6:21 AM OFFICE COMMUNICATION PROFESSOR HCHG SUSCEPTIBILITY AEROBIC CALIX STAT 03/30/2024 11:35 PM OFFICE COMMUNICATION PROFESSOR URINALYSIS MICROSCOPIC STAT 11:35 PM OFFICE COMMUNICATION PROFESSOR URINE CULTURE STAT 03/30/2024 11:35 PM OFFICE COMMUNICATION PROFESSOR UA W/ SEDIMENT EXAM REFLEXED PER CRITERIA STAT 03/30/2024 11:35 PM OFFICE COMMUNICATION PROFESSOR XR CHEST 1 VIEW PORTABLE STAT 03/30/2024 11:11 PM OFFICE COMMUNICATION PROFESSOR CBC WITH AUTO DIFFERENTIAL STAT 03/30/2024 11:01 PM OFFICE COMMUNICATION PROFESSOR PROCALCITONIN STAT 03/30/2024 11:01 PM OFFICE COMMUNICATION PROFESSOR BASIC METABOLIC PANEL STAT 03/30/2024 11:01 PM OFFICE COMMUNICATION PROFESSOR CBC WITH AUTO DIFFERENTIAL STAT 03/30/2024 11:01 PM OFFICE COMMUNICATION PROFESSOR LACTATE VENOUS STAT 03/30/2024 11:01 PM OFFICE COMMUNICATION PROFESSOR BLOOD CULTURE STAT 03/30/2024 11:01 PM OFFICE COMMUNICATION PROFESSOR BLOOD CULTURE STAT 03/30/2024 11:01 PM OFFICE COMMUNICATION PROFESSOR INFLUENZA A/B PCR STAT 03/30/2024 11: 01 PM OFFICE COMMUNICATION PROFESSOR COVID-19 MOLECULAR Today 03/30/2024 11 :01 PM OFFICE COMMUNICATION PROFESSOR XR DXA BONE DENSITY 2 SITES AXIAL Routine 02/25/2020 3:20 PM OFFICE COMMUNICATION PROFESSOR Age-related osteoporosis without current pathological fracture Asymptomatic postmenopausal state from Last 3 Months or Most Recently Relevant to Health Maintenance Results * WHITE BLOOD COUNT (04/02/2024 6:24 AM OFFICE COMMUNICATION PROFESSOR) Only the most recent of3 resultswithin the time period is included. WHITE BLOOD COUNT 6.4 4.5 - 11.0 thou/cu mm 04/02/2024 6:44 AM OFFICE COMMUNICATION PROFESSOR [facility] Blood BLOOD SPECIMEN / Unknown Venipuncture / Unknown 04/02/2024 6:24 AM OFFICE COMMUNICATION PROFESSOR 04/02/2024 6:27 AM OFFICE COMMUNICATION PROFESSOR [employer] HEMATOLOGY Stefany l Result Performing Organization Address City/[facility]/ZIP Co de Phone Number [facility] [address] [place] [address] * (ABNORMAL) HEMOGLOBIN (04/02/2024 6:24 AM OFFICE COMMUNICATION PROFESSOR) Only the most recent of3 resultswithin the time period is included. HEMOGLOBIN 11.5(L) 12.0 - 16.0 g/dL 04/02/2024 6:44 AM OFFICE COMMUNICATION PROFESSOR [facility] MCV 99 80 - 100 fL 04/02/2024 6:44 AM [facility] Blood BLOOD SPECIMEN / Unknown Venipuncture / Unknown 04/02/2024 6:24 AM OFFICE COMMUNICATION PROFESSOR 04/02/2024 6:27 AM OFFICE COMMUNICATION PROFESSOR [facility] [employer] DO HEMATOLOGY Stefany l Result [facility] [address] [place], [place] [id number] * SODIUM (04/02/2024 6:24 AM OFFICE COMMUNICATION PROFESSOR) Only the most recent of3 resultswithin the time period is included. SODIUM 137 136 - 145 mmol/L 04/02/2024 6:49 AM OFFICE COMMUNICATION PROFESSOR [facility] Blood BLOOD SPECIMEN / Unknown Venipuncture / Unknown 04/02/2024 6:24 AM OFFICE COMMUNICATION PROFESSOR 04/02/2024 6:27 AM OFFICE COMMUNICATION PROFESSOR [facility] [employer] DO CHEMISTRY Stefany l Result Performing Organization Address City/[facility]/ZIP Co de Phone Number [facility] [address] [place] [address] * POTASSIUM (04/02/2024 6:24 AM OFFICE COMMUNICATION PROFESSOR) Only the most recent of3 resultswithin the time period is included. POTASSIUM 4.1 3.5 - 5.1 mmol/L 04/02/2024 6:49 AM [facility] Blood BLOOD SPECIMEN / Unknown Venipuncture / Unknown 04/02/2024 6:24 AM OFFICE COMMUNICATION PROFESSOR 04/02/2024 6:27 AM OFFICE COMMUNICATION PROFESSOR [facility] [employer] DO CHEMISTRY Stefany l Result Performing Organization Address [facility] de Phone Number [facility] [address] [place] [address] * (ABNORMAL) CREATININE (04/02/2024 6:24 AM OFFICE COMMUNICATION PROFESSOR) Only the most recent of3 resultswithin the time period is included. eGFR 76(L) >90 mL/min/1.7 3m2 04/02/2024 6:49 AM [facility] Comment:As of 2021, eG FR is calculated by the CKD-EPI creatinine equation without race adjustment. eGFR can be influenced by muscle mass, exercise, and diet. The reported eGFR is an estimation only and is only applicable if the renal function is stable. CREATININE 0.77 0.50 - 0.90 mg/dL 04/02/2024 6:49 AM [facility] Blood BLOOD SPECIMEN / Unknown Venipuncture / Unknown 04/02/2024 6:24 AM OFFICE COMMUNICATION PROFESSOR 04/02/2024 6:27 AM OFFICE COMMUNICATION PROFESSOR [employer] CHEMISTRY Stefany l Result Performing Organization Address [facility]/ZIP Co de Phone Number [facility] [address] [place] [address] * MAGNESIUM (03/31/2024 6:21 AM OFFICE COMMUNICATION PROFESSOR) [facility] MAGNESIUM 1.9 1.6 - 2.4 mg/dL 03/31/2024 6:49 AM OFFICE COMMUNICATION PROFESSOR [facility] Blood BLOOD SPECIMEN / Unknown Venipuncture / Unknown 03/31/2024 6:21 AM OFFICE COMMUNICATION PROFESSOR 03/31/2024 6:28 AM OFFICE COMMUNICATION PROFESSOR us Lavern Garcia MD CHEMISTRY Final Resu lt Performing Organization Address [facility] Co de Phone Number [facility] [address] [place] [address] * (ABNORMAL) SUSCEPTIBILITY AEROBIC BACTERIA (03/30/2024 11:35 PM OFFICE COMMUNICATION PROFESSOR) [facility] SUSC, AEROBIC BACTERIA SEE COMMENTS( A) 04/09/2024 11:26 AM OFFICE COMMUNICATION PROFESSOR [facility] Comment: RESULT: FINAL 04/09/2024 1126 SOURCE: URINE, Source = Urine. Organism ID if applicable= E. coli. Antimicrobials requested= Fosfomycin. SUSCEPTIBILITY, AEROBIC, ERI FINAL ESCHERICHIA COLI Organism identified by client. Organism ESCHERICHIA COLI Antibiotic ERI (mcg/mL) Interpretation Fosfomycin <=64 S S=SUSCEPTIBLE I=INTERMEDIATE R=RESISTANT NS=NONSUSCEPTIBLE SDD=SUSCEPTIBLE DOSE DEPENDENT Test Performed by: [address] [address] Laboratory Equipment Installer: Maris Glynn Ph.D.; CLIA# [id number] Urine URINE SPECIMEN / Unknown Non-Blood / Unknown 03/30/2024 11:35 PM OFFICE COMMUNICATION PROFESSOR 04/04/2024 11:22 AM OFFICE COMMUNICATION PROFESSOR us Rajwinder HERNANDEZ MICROBIOLOGY Final Result [address] [address], [place] [phone] * (ABNORMAL) URINALYSIS MICROSCOPIC (03/30/2024 11:35 PM OFFICE COMMUNICATION PROFESSOR) RBC 0-2 0-2, None Seen /HPF 03/30/2024 11:51 PM [facility] WBC >100(A) 0-2, 3-5, None Seen /HPF 03/30/2024 11:51 PM [facility] BACTERIA Many(A) None Seen, Rare, Few Bacteria/ HPF 03/30/2024 11:51 PM [facility] EPITHELIAL CELLS Few None Seen, Few Epi/HPF 03/30/2024 11:51 PM [facility] YEAST Present(A) (none) 03/30/2024 11:51 PM [facility] WHITE CELL CLUMPS Present(A) (none) 03/30/2024 11:51 PM [facility] Urine URINE SPECIMEN / Unknown Non-Blood / Unknown 03/30/2024 11:35 PM OFFICE COMMUNICATION PROFESSOR 03/30/2024 11:41 PM OFFICE COMMUNICATION PROFESSOR us Rajwinder HERNANDEZ URINE Final Result [facility] [address] [place] [address] * (ABNORMAL) URINE CULTURE (03/30/2024 11:35 PM OFFICE COMMUNICATION PROFESSOR) CULTURE RESULT(A) 04/09/2024 2:47 PM OFFICE COMMUNICATION PROFESSOR [facility] CULTURE >100,000 CFU/mL Escherichia coli 04/09/2024 2:47 PM OFFICE COMMUNICATION PROFESSOR [facility] Comment: Sent to [facility], [place], [place] for susceptibility - Fosfomycin See separate report. ESBL-positive (Extended-spectrum beta-lactamase); multidrug-resistant organism. Urine URINE SPECIMEN / Unknown Non-Blood / Unknown 03/30/2024 11:35 PM OFFICE COMMUNICATION PROFESSOR 03/30/2024 11:41 PM OFFICE COMMUNICATION PROFESSOR Narrative Organism Antibiotic Method Susceptibility Escherichia coli [...] [facility] [address] [place] [address], [place] * (ABNORMAL) UA W/ SEDIMENT EXAM REFLEXED PER CRITERIA (03/30/2024 11:35 PM OFFICE COMMUNICATION PROFESSOR) COLOR Yellow Yellow Color 03/30/2024 11:51 PM [facility] CLARITY Slightly Cloudy(A) Clear Clarity 03/30/2024 11:51 PM [facility] SPECIFIC GRAVITY,URINE 1.020 1.010, 1.015, 1.020, 1.025 03/30/2024 11:51 PM [facility] PH,URINE 6.0 6.0, 7.0, 8.0, 5.5, 6.5, 7.5, 8.5 03/30/2024 11:51 PM [facility] UROBILINOGEN, QUALITATIVE Normal Normal EU/dl 03/30/2024 11:51 PM [facility] PROTEIN, URINE 30(A) Negative mg/dL 03/30/2024 11:51 PM [facility] GLUCOSE, URINE Negative Negative mg/dL 03/30/2024 11:51 PM [facility] KETONES,URINE Negative Negative mg/dL 03/30/2024 11:51 PM [facility] BILIRUBIN,URI NE Negative Negative 03/30/2024 11:51 PM [facility] OCCULT BLOOD,URINE Trace(A) Negative 03/30/2024 11:51 PM [facility] NITRITE Positive(A) Negative 03/30/2024 11:51 PM [facility] LEUKOCYTE ESTERASE Large(A) Negative 03/30/2024 11:51 PM [facility] Urine URINE SPECIMEN / Unknown Non-Blood / Unknown 03/30/2024 11:35 PM OFFICE COMMUNICATION PROFESSOR 03/30/2024 11:41 PM OFFICE COMMUNICATION PROFESSOR us Rajwinder HERNANDEZ URINE Final Result [facility] [address] [place] [address] * XR CHEST 1 VIEW PORTABLE (03/30/2024 11:11 PM OFFICE COMMUNICATION PROFESSOR) Anatomical Region Laterality Modality HEART, THORAX, CHEST Digital Rad iography 03/30/2024 11:4 3 PM OFFICE COMMUNICATION PROFESSOR Impressions 03/30/2024 11:43 PM OFFICE COMMUNICATION PROFESSOR No evidence of an acute pulmonary process in the setting of emphysema. Dictated by Edil Mendoza MD @ 03/30/2024 11:43:52 PM (Electronically Signed) Narrative 03/30/2024 11:43 PM OFFICE COMMUNICATION PROFESSOR For Patients: As a result of the [...] Result * COVID-19 MOLECULAR (03/30/2024 11:01 PM OFFICE COMMUNICATION PROFESSOR) COVID 19 [facility] MOLECULAR Not detected Not detected 03/30/2024 11:47 PM [facility] TESTING LABORATORY [facility] 03/30/2024 11:47 PM OFFICE COMMUNICATION PROFESSOR [facility] Comment:Specimen submitted t o [facility] for testing. Other SPECIMEN FROM NASOPHARYNGEAL STRUCTURE / Unknown Non-Blood / Unknown 03/30/2024 11:01 PM OFFICE COMMUNICATION PROFESSOR 03/30/2024 11:07 PM OFFICE COMMUNICATION PROFESSOR Rajwinder HERNANDEZ MICROBIOLOGY Final Result [facility] [address] [place] [address] * INFLUENZA A/B PCR (03/30/2024 11:01 PM OFFICE COMMUNICATION PROFESSOR) [facility] INFLUENZA A PCR NOT Detected 03/30/2024 11:47 PM [facility] INFLUENZA B PCR NOT Detected 03/30/2024 11:47 PM [facility] Other SPECIMEN FROM NASOPHARYNGEAL STRUCTURE / Unknown Non-Blood / Unknown 03/30/2024 11:01 PM OFFICE COMMUNICATION PROFESSOR 03/30/2024 11:07 PM OFFICE COMMUNICATION PROFESSOR Rajwinder HERNANDEZ MICROBIOLOGY Final Result Performing Organization Address [facility]/ZIP Co de Phone Number [facility] [address] [place] [address] * (ABNORMAL) CBC WITH AUTO DIFFERENTIAL (03/30/2024 11:01 PM OFFICE COMMUNICATION PROFESSOR) Pathologist [facility] WHITE BLOOD COUNT 8.0 4.5 - 11.0 thou/cu mm 03/30/2024 11:12 PM [facility] RED BLOOD COUNT 3.88(L) 4.00 - 5.20 mil/cu mm 03/30/2024 11:12 PM [facility] HEMOGLOBIN 12.3 12.0 - 16.0 g/dL 03/30/2024 11:12 PM [facility] HEMATOCRIT 38.0 33.0 - 51.0 % 03/30/2024 11:12 PM [facility] MCV 98 80 - 100 fL 03/30/2024 11:12 PM [facility] MCH 31.7 26.0 - 34.0 pg 03/30/2024 11:12 PM [facility] MCHC 32.4 32.0 - 36.0 g/dL 03/30/2024 11:12 PM [facility] RDW 14.5 11.5 - 15.5 % 03/30/2024 11:12 PM [facility] PLATELET COUNT 298 140 - 440 thou/cu mm 03/30/2024 11:12 PM [facility] MPV 9.7 6.5 - 11.0 fL 03/30/2024 11:12 PM [facility] % NEUT 74.3 % 03/30/2024 11:12 PM [facility] % LYMPH 15.7 % 03/30/2024 11:12 PM [facility] % MONO 9.0 % 03/30/2024 11:12 PM [facility] % EOS 0.6 % 03/30/2024 11:12 PM [facility] % BASO 0.4 % 03/30/2024 11:12 PM [facility] ABSOLUTE NEUTROPHILS 6.0 1.7 - 7.0 thou/cu mm 03/30/2024 11:12 PM [facility] ABSOLUTE LYMPHOCYTES 1.3 0.9 - 2.9 thou/cu mm 03/30/2024 11:12 PM [facility] ABSOLUTE MONOCYTES 0.7 <0.9 thou/cu mm 03/30/2024 11:12 PM [facility] ABSOLUTE EOSINOPHILS 0.1 <0.5 thou/cu mm 03/30/2024 11:12 PM [facility] ABSOLUTE BASOPHILS 0.0 <0.3 thou/cu mm 03/30/2024 11:12 PM [facility] Blood BLOOD SPECIMEN / Unknown Butterfly / Unknown 03/30/2024 11:01 PM OFFICE COMMUNICATION PROFESSOR 03/30/2024 11:08 PM OFFICE COMMUNICATION PROFESSOR Rajwinder HERNANDEZ HEMATOLOGY Final Result Performing Organization Address City/[facility]/ZIP Co de Phone Number [facility] [address] [place] [address] * LACTATE VENOUS (03/30/2024 11:01 PM OFFICE COMMUNICATION PROFESSOR) LACTATE,VENOUS 0.9 0.5 - 2.0 mmol/L 03/30/2024 11:28 PM OFFICE COMMUNICATION PROFESSOR [facility] Blood BLOOD SPECIMEN / Unknown Butterfly / Unknown 03/30/2024 11:01 PM OFFICE COMMUNICATION PROFESSOR 03/30/2024 11:08 PM OFFICE COMMUNICATION PROFESSOR Rajwinder HERNANDEZ CHEMISTRY Final Result Performing Organization Address [facility]/ZIP Co de Phone Number [facility] [address] [place] [address] * PROCALCITONIN (03/30/2024 11:01 PM OFFICE COMMUNICATION PROFESSOR) PROCALCITONIN 0.08 ng/ml 03/30/2024 11:39 PM OFFICE COMMUNICATION PROFESSOR [facility] Blood BLOOD SPECIMEN / Unknown Butterfly / Unknown 03/30/2024 11:01 PM OFFICE COMMUNICATION PROFESSOR 03/30/2024 11:07 PM OFFICE COMMUNICATION PROFESSOR Narrative [facility] - 03/30/2024 11:39 PM OFFICE COMMUNICATION PROFESSOR Procalcitonin for initial assessment of Lower Respiratory [...] SEND OUTS Final Result Performing Organization Address [facility]/ZIP Co de Phone Number [facility] [address] [place] [address] * BLOOD CULTURE X2 (03/30/2024 11:01 PM OFFICE COMMUNICATION PROFESSOR) Only the most recent of2 resultswithin the time period is included. CULTURE No Growth. 04/05/2024 8:17 AM OFFICE COMMUNICATION PROFESSOR [facility] Blood BLOOD SPECIMEN / Unknown Butterfly / Unknown 03/30/2024 11:01 PM OFFICE COMMUNICATION PROFESSOR 03/30/2024 11:08 PM OFFICE COMMUNICATION PROFESSOR Rajwinder HERNANDEZ MICROBIOLOGY Final Result Performing Organization Address [facility] Co de Phone Number [facility] [address] [place] [address] * (ABNORMAL) BASIC METABOLIC PANEL (03/30/2024 11:01 PM [facility]) SODIUM 138 136 - 145 mmol/L 03/30/2024 11:27 PM [facility] POTASSIUM 4.3 3.5 - 5.1 mmol/L 03/30/2024 11:27 PM [facility] CHLORIDE 104 98 - 107 mmol/L 03/30/2024 11:27 PM [facility] CO2,TOTAL 25 22 - 29 mmol/L 03/30/2024 11:27 PM [facility] ANION GAP 9 5 - 18 03/30/2024 11:27 PM [facility] GLUCOSE 115(H) 70 - 99 mg/dL 03/30/2024 11:27 PM [facility] CALCIUM 10.0 8.8 - 10.4 mg/dL 03/30/2024 11:27 PM [facility] Comment: Reference ranges for this test were updated on 02/26/2024 to reflect our healthy population more accurately. Reference range changes are not retroactively applied to results, but previous results using the same methodology can be interpreted in the context of the new reference range. BUN 22 8 - 23 mg/dL 03/30/2024 11:27 PM [facility] CREATININE 0.85 0.50 - 0.90 mg/dL 03/30/2024 11:27 PM [facility] BUN/CREAT RATIO 26(H) 10 - 20 11:27 PM [facility] eGFR 68(L) >90 mL/min/1. 73m2 03/30/2024 11:27 PM [facility] Comment:As of 2021, eG FR is calculated by the CKD-EPI creatinine equation without race adjustment. eGFR can be influenced by muscle mass, exercise, and diet. The reported eGFR is an estimation only and is only applicable if the renal function is stable. Blood BLOOD SPECIMEN / Unknown Butterfly / Unknown 03/30/2024 11:01 PM OFFICE COMMUNICATION PROFESSOR 03/30/2024 11:07 PM [facility] Rajwinder HERNANDEZ CHEMISTRY Final Result [facility] [address] [place] [address] * (ABNORMAL) XR DXA BONE DENSITY 2 SITES AXIAL (02/25/2020 3:20 PM OFFICE COMMUNICATION PROFESSOR) Anatomical Region Laterality Modality Spine, HIPS, HIPL, HIPR Bone Den sitometry Narrative 02/27/2020 8:13 AM OFFICE COMMUNICATION PROFESSOR Please see scanned document for results of [...] coli +MDRO, 06/18/2023, urine, ESBL+ E. coli, ([facility]) 07/30/2023 03/30/2024 Insurance MEDICARE PART A HB ONLY MEDICARE PART B HB ONLY MR BC [facility] [place] MEDICARE PART B HB ONLY BLUE CROSS [facility] [place] BLUE MR PB ONLY MEDICARE PART A HB ONLY BLUE [employer]OSS [facility] [place] BLUE HB ONLY Advance Directives Documents on File Type Date Recorded Patient Manager [employer] POLST 08/09/2023 3:36 PM Healthcare [...] 10:28 AM 02/01/2017 3:40 PM Care Teams Squeegee Finisher Relationship Specialty Start Date End Date Dayana Diaz DO [address] [facility] [place] [address] PCP - General Internal Medicine 04/07/16
--- OUTSIDE RECORDS SUMMARY | 2024-06-12 16:15 | XMS_ITS ---
Author Organization Unknown Address [address] [place] [address] Phone Care Team Providers Care Marine Electronics Technician Name Role Phone JOHANA DUGGAN Registered Nurse Unavailable BUTCH WHATLEY Attending Unavailable WILLIAM KELLEY Unavailable UNKNOWN Primary Unavailable Results URINALYSIS W/REFLEX TO CULTU RE - Collect Date/Time: 07/25/2022 17:15 [facility] OS ID: [id number] [address] [place], [place], [address] LOINC: Test Value Unit Reference Range Code [...] PT/INR/PTT - Collect Date/Ti me: 07/25/2022 14:37 [facility] OS ID: [id number] [address] [place], [place], [address] LOINC: Test Value Unit Reference Range Code Code System Flag PROTIME 9.6 Secs L=9.0 H=11.2 INR 1.0 L=0.9 H=1.1 PTT 22.5 Secs L=22.0 H=30.0 PCR SARS COV-2_FLU_RSV - Col lect Date/Time: 07/25/2022 14:37 [facility] OS ID: [id number] [address] [facility] [address] LOINC: Test Value Unit Reference Range Code Code System Flag SARS SPECIMEN SOURCE Nasopharyngeal RSV NEGATIVE NORMAL: NEGATIVE INFLUENZA A NEGATIVE NORMAL: NEGATIVE INFLUENZA B NEGATIVE NORMAL: NEGATIVE SARS COVID NEGATIVE NORMAL: NEGATIVE CBC W/AUTO DIFF - Collect Da te/Time: 07/25/2022 14:37 [facility] OS ID: [id number] [address] [facility] [address] LOINC: Test Value Unit Reference Range Code [...] NO CMP - Collect Date/Time: 07/2022 14:37 [facility] OS ID: [id number] [address] [place], [place], [address] LOINC: Test Value Unit Reference Range Code [...] ompleted: 07/25/2022 14:54 LOINC: \TM00\\12PI\\DRAo\\BM09\\PGN o\\MRB2\ \MRHo\ [facility] [address] [place] [address] ---------NAME--------- NUMBER SEX AGE ADMIT DISC. XRAY# F/C TYPE SUJEY FAGAN [id number] F 82 07/25/22 [id number] MB E/R DATE OF : 1940 M/R# [id number] PH#: [phone] ED-3 \MRHx\ LOCATION: TRANSCRIBED: 07/25/22 14:53 CT CERVICAL SPINE [place] [id number] COMPLETED:07/25/22 14:54 NOV 71814 {SPINE PROCED REASON: FALL PHYSICIAN: Ariana THOMAS [...] Completed: 07/25/2022 14:46 LOINC: \TM00\\12PI\\DRAo\\BM09\\PGN o\\MRB2\ \MRHo\ [place] [address] [facility] [place] [address] ---------NAME--------- NUMBER SEX AGE ADMIT DISC. XRAY# F/C TYPE SUJEY FAGAN [id number] F 82 07/25/22 [id number] MB E/R DATE OF : 1940 M/R# [id number] PH#: [phone] ED-3 \MRHx\ LOCATION: TRANSCRIBED: 07/25/22 14:44 [place] [id number] COMPLETED:07/25/22 14:46 NOV 54773 {REASON FOR TEST: EXTERNAL INJURY/TRAUMA PHYSICIAN: Ariana [...] Completed: 07/25/2022 14:42 LOINC: \TM00\\12PI\\DRAo\\BM09\\PGN o\\MRB2\ \MRHo\ [facility] [address] [place] [address] ---------NAME--------- NUMBER SEX AGE ADMIT DISC. XRAY# F/C TYPE SUJEY FAGAN [id number] F 82 07/25/22 [id number] MB E/R DATE OF : 1940 M/R# [id number] #: [phone] ED-3 \MRHx\ LOCATION: TRANSCRIBED: 07/25/22 14:37 XR CHEST 1 VIEW [id number] COMPLETED:07/25/22 14:42 NOV 14097 {REASON FOR CHEST: COUGH PHYSICIAN: Ariana THOMAS [...] Smoking History Current every day smoker 01[birth year]31[birth year][id number] Sex Female Vital Signs Vital Sign Value Unit [place] Value [employer] [place] Unit Date/Time Recent/Initial? Code Code System Body Mass Index 17.74 kg/m2 07/25/2022 14:12 Initial 41682 -5 LOINC Systolic Blood Pressure 141 mm[Hg] [...] Saturation 95 % 2022 18:08 Most Recent 84872 -5 LOINC O2 Saturation 97 % 2022 14:12 Initial 42777 -5 LOINC Pulse 89.0 /min 07/25/2022 18:08 Most Recent 8867- 4 LOINC Pulse 63.0 /min 07/25/2022 14:12 Initial 8867- 4 LOINC Respiration 16 /min 07/26/19 18:08 Most Recent 9279- 1 [facility] Respiration 16 /min 07/26/19 14:12 Initial 9279- 1 [facility] Temperature 36.3 Latisha 97.4 F 07/26/19 14:12 Initial 8310- 5 [facility] Weight 47.63 kg 105.00 lbs 07/25/2022 14:12 Initial 17378 -7 [facility] Medications Medication Start Date End Date Route Frequency Dose Code Code System Medication Instructions Home Meds Acetaminophen 500MG Oral Capsule 05/08/2022 Unknown ORAL DAILY 1000 MILLIGRAMS 476440 RxNorm TAKE 1000 MILLIGRAMS ORAL DAILY Atorvastatin Calcium 20MG Oral Tablet 05/08/2022 Unknown ORAL AT BEDTIME 20 MILLIGRAMS 424561 RxNorm TAKE 20 MILLIGRAMS ORAL AT BEDTIME Cranberry 500MG Oral Capsule 05/08/2022 Unknown ORAL AT BEDTIME 500 MILLIGRAMS 6838408 RxNorm TAKE 500 MILLIGRAMS ORAL AT BEDTIME Docusate 100MG Oral Capsule, Liquid Filled 05/08/2022 Unknown ORAL TWICE A DAY 100 MILLIGRAMS 4261741 RxNorm TAKE 100 MILLIGRAMS ORAL TWICE A DAY Donepezil HCl 10MG Oral Tablet 05/08/2022 Unknown ORAL DAILY 10 MILLIGRAMS 249263 RxNorm TAKE 10 MILLIGRAMS ORAL DAILY Ibuprofen 200MG Oral Tablet 05/08/2022 Unknown ORAL AT BEDTIME 400 MILLIGRAMS 756995 RxNorm TAKE 400 MILLIGRAMS ORAL AT BEDTIME Lisinopril 10MG Oral Tablet 05/08/2022 Unknown ORAL DAILY 10 MILLIGRAMS 814758 RxNorm TAKE 10 MILLIGRAMS ORAL DAILY Mirtazapine 7.5MG Oral Tablet 05/08/2022 Unknown ORAL AT BEDTIME 7.5 MILLIGRAMS 038379 RxNorm TAKE 7.5 MILLIGRAMS ORAL AT BEDTIME Vitamin B12 1000MCG Oral Tablet 05/08/2022 Unknown ORAL DAILY 1000 MCG 997160 RxNorm TAKE 1000 MCG ORAL DAILY Vitamin C 1000MG Oral Tablet 05/08/2022 Unknown ORAL DAILY 1000 MILLIGRAMS 926075 RxNorm TAKE 1000 MILLIGRAMS ORAL DAILY Vitamin D3 10 MCG Oral Capsule, Liquid Filled 05/08/2022 Unknown ORAL DAILY 10 MCG RxNorm TAKE 10 MCG ORAL DAILY Cefuroxime 250MG Oral Tablet 05/08/2022 Unknown ORAL TWICE A DAY 2 TABLET 892210 RxNorm TAKE 2 TABLET ORAL TWICE A DAY Nitrofurantoin 100MG Oral Capsule 07/25/2022 Unknown ORAL EVERY 12 HOURS 1 CAPSULE 8840020 RxNorm TAKE 1 CAPSULE ORAL EVERY 12 [...] Date Status Code Code System SYNCOPE active 322191111 SNOMED-CT UTI active 69112393 SNOMED-CT CONTUSION OF HEAD, INITIAL ENCOUNTER active 821790182 SNOMED-CT HYPERTENSION 05/07/2022 resolved 53954288 SNOMED -CT URINARY TRACT INFECTION 05/07/2022 resolved 90448 005 SNOMED-CT Allergies and Adverse Reactions Allergy Substance Reaction Severity Start Date Concern Status Co de Code System No Known Drug Allergies Active 650853512 SNOMED-CT Plan of Treatment No Data Found Personal Care Team Section Performer Name Performer Role Active Date Inactive Da te
--- OUTSIDE RECORDS SUMMARY | 2024-06-12 16:15 | XMS_ITS ---
Author Organization Unknown Address [address] [place] [address] Phone Care Team Providers Care Media Relations Coordinator Name Role Phone KWESI FOX Attending Unavailable UNKNOWN Primary Unavailable Social History Type Status Start Date End Date Code Code Syst em Smoking History Current every day smoker 01/31[birth year][address] Sex Female Vital Signs Vital Sign Value Unit [place] Value [place] Unit Date/Time Recent/Initial? Code Code System Body Mass Index 17.64 kg/m2 08/04/2022 15:59 Initial 36730 -5 [facility] Systolic Blood Pressure 138 mm[Hg] 08/04/2022 16:04 Initial 8480- 6 [facility] Diastolic Blood Pressure 91 mm[Hg] 08/04/2022 16:04 Initial 8462- 4 [facility] Body Surface Area 1.48 m2 08/04/2022 15:59 Initial 3140- 1 LOINC Height 165.100 0 cm 65.00 in 08/04/2022 15:59 Initial 8302- 2 INC O2 Saturation 96 % 2022 15:59 Initial 86601 -5 [facility] Pulse 63.0 /min 08/04/2022 15:59 Initial 8867- 4 INC Respiration 16 /min 08/05/19 15:59 Initial 9279- 1 LOINC Temperature 36.7 Latisha 98.1 F 08/05/19 23 15:59 Initial 8310- 5 LOINC Weight 48.08 kg 106.00 lbs 08/04/2022 15:59 Initial 77856 -7 [facility] Medications Medication Start Date End Date Route Frequency Dose Code Code System Medication Instructions Home Meds Acetaminophen 500MG Oral Capsule 05/08/2022 Unknown ORAL DAILY 1000 MILLIGRAMS 002074 RxNorm TAKE 1000 MILLIGRAMS ORAL DAILY Atorvastatin Calcium 20MG Oral Tablet 05/08/2022 Unknown ORAL AT BEDTIME 20 MILLIGRAMS 932214 RxNorm TAKE 20 MILLIGRAMS ORAL AT BEDTIME Cranberry 500MG Oral Capsule 05/08/2022 Unknown ORAL AT BEDTIME 500 MILLIGRAMS 5911952 RxNorm TAKE 500 MILLIGRAMS ORAL AT BEDTIME Docusate 100MG Oral Capsule, Liquid Filled 05/08/2022 Unknown ORAL TWICE A DAY 100 MILLIGRAMS 4813614 RxNorm TAKE 100 MILLIGRAMS ORAL TWICE A DAY Donepezil HCl 10MG Oral Tablet 05/08/2022 Unknown ORAL DAILY 10 MILLIGRAMS 780796 RxNorm TAKE 10 MILLIGRAMS ORAL DAILY Ibuprofen 200MG Oral Tablet 05/08/2022 Unknown ORAL AT BEDTIME 400 MILLIGRAMS 037595 RxNorm TAKE 400 MILLIGRAMS ORAL AT BEDTIME Lisinopril 10MG Oral Tablet 05/08/2022 Unknown ORAL DAILY 10 MILLIGRAMS 303773 RxNorm TAKE 10 MILLIGRAMS ORAL DAILY Mirtazapine 7.5MG Oral Tablet 05/08/2022 Unknown ORAL AT BEDTIME 7.5 MILLIGRAMS 395106 RxNorm TAKE 7.5 MILLIGRAMS ORAL AT BEDTIME Vitamin B12 1000MCG Oral Tablet 05/08/2022 Unknown ORAL DAILY 1000 MCG 865871 RxNorm TAKE 1000 MCG ORAL DAILY Vitamin C 1000MG Oral Tablet 05/08/2022 Unknown ORAL DAILY 1000 MILLIGRAMS 512301 RxNorm TAKE 1000 MILLIGRAMS ORAL DAILY Vitamin D3 10 MCG Oral Capsule, Liquid Filled 05/08/2022 Unknown ORAL DAILY 10 MCG RxNorm TAKE 10 MCG ORAL DAILY Cefuroxime 250MG Oral Tablet 05/08/2022 Unknown ORAL TWICE A DAY 2 TABLET 040266 RxNorm TAKE 2 TABLET ORAL TWICE A DAY Nitrofurantoin 100MG Oral Capsule 07/25/2022 Unknown ORAL EVERY 12 HOURS 1 CAPSULE 8937191 RxNorm TAKE 1 CAPSULE ORAL EVERY 12 [...] Date Status Code Code System SYNCOPE active 847543514 SNOMED-CT UTI active 23748819 SNOMED-CT CONTUSION OF HEAD, INITIAL ENCOUNTER active 700777942 SNOMED-CT HYPERTENSION 05/07/2022 resolved 41391322 SNOMED -CT URINARY TRACT INFECTION 05/07/2022 resolved 48248 005 SNOMED-CT Allergies and Adverse Reactions Allergy Substance Reaction Severity Start Date Concern Status Co de Code System No Known Drug Allergies Active 284377508 SNOMED-CT Plan of Treatment Plan: follow-up with PCP call for appointment continue current medications return for increased problem Ordered & Completed Meds Table: No Current Medications Available Discharge Medications: Personal Care Team Section Performer Name Performer Role Active Date Inactive Da barak
--- OUTSIDE RECORDS SUMMARY | 2024-06-12 16:15 | XMS_ITS ---
Author Organization Unknown Address [address] [place] [address] Phone Care Team Providers Care Office Messenger Name Role Phone HIRA ROSARIO RN Registered Nurse Unavailable Unavailable Xwatchlist Unavailable NAIMA NICOLE Attending Unavailable [facility]SE G [facility] Unavailable UNKNOWN Primary Unavailable Results TROPONIN HS QUANTITATIVE - C ollect Date/Time: 05/08/2022 04:04 [facility] H OS ID: [id number] [address] [place], [place], [address] LOINC: Test Value Unit Reference Range Code Code System Flag TROPONIN HS 0.0098 ng/mL L=0.0000 H=0.0399 CMP - Collect Date/Time: 04:04 [facility] H OS ID: [id number] [address] [place], [place], [address] LOINC: Test Value Unit [...] DIFF - Collect Da te/Time: 05/08/2022 04:04 [facility] H OS ID: [id number] [address], [place], [place], [address] LOINC: Test Value Unit Reference Range Code [...] MAGNESIUM - Collect Date/Osmar e: 05/07/2022 13:26 [facility] H OS ID: [id number] [address] [place], [place], [address] LOINC: Test Value Unit Reference Range Code Code System Flag MAGNESIUM 2.0 mg/dL L=1.6 H=2.3 PT/INR/PTT - Collect Date/Ti me: 05/07/2022 13:26 [facility] H OS ID: [id number] [address] [place], [place], [address] LOINC: Test Value Unit Reference Range Code Code System Flag PROTIME 10.1 Secs L=9.0 H=11.2 INR 1.0 L=0.9 H=1.1 PTT 23.6 Secs L=22.0 H=30.0 TROPONIN HS QUANTITATIVE - C ollect Date/Time: 05/07/2022 13:26 [facility] H OS ID: [id number] [address] [place], [place], [address] LOINC: Test Value Unit Reference Range Code Code System Flag TROPONIN HS 0.0074 ng/mL L=0.0000 H=0.0399 CBC W/AUTO DIFF - Collect Da te/Time: 05/07/2022 13:26 [facility] H OS ID: [id number] [address], [place], [address] LOINC: Test Value Unit [...] TEST NO CMP - Collect Date/Time: 13:26 [facility] OS ID: [id number] [address] [place], [place], [address] LOINC: Test Value Unit Reference Range Code [...] CULTU RE - Collect Date/Time: 05/07/2022 13:11 [facility] OS ID: [id number] [address] [place], [place], [address] LOINC: Test Value Unit Reference Range Code [...] Completed: 05/07/2022 13:31 LOINC: \TM00\\12PI\\DRAo\\BM09\\PGN o\\MRB2\ \MRHo\ [facility] [address] [place] [address] ---------NAME--------- NUMBER SEX AGE ADMIT DISC. XRAY# F/C TYPE SUJEY FAGAN [id number] F 81 05/07/22 [id number] MB E/R DATE OF : 1940 M/R# [id number] PH#: [phone] ED-1 \MRHx\ LOCATION: TRANSCRIBED: 05/07/22 13:28 [place] [id number] COMPLETED:05/07/22 13:Feb {REASON FOR TEST: SYNCOPE PHYSICIAN: [...] : 05/07/2022 13:34 LOINC: \TM00\\12PI\\DRAo\\BM09\\PGN o\\MRB2\ \MRHo\ [facility] [address] [facility] [place] [address] ---------NAME--------- NUMBER SEX AGE ADMIT DISC. XRAY# F/C TYPE SUJEY FAGAN [id number] F 81 05/07/22 [id number] MB E/R DATE OF : 1940 M/R# [id number] #: [phone] ED-1 \MRHx\ LOCATION: TRANSCRIBED: 05/07/22 13:04 XR CHEST 1V [place] [id number] COMPLETED:05/07/22 13:Feb {REASON FOR CHEST: TRAUMA PHYSICIAN: [...] Smoking History Current every day smoker 01[birth year][address] Sex Female Vital Signs Vital Sign Value Unit [place] Value [place] Unit Date/Time Recent/Initial? Code Code System Body Mass Index 18.02 kg/m2 05/07/2022 11:00 Initial 38455 -5 LOINC Systolic Blood Pressure 143 mm[Hg] [...] Saturation 96 % 2022 12:54 Most Recent 40373 -5 LOINC O2 Saturation 99 % 2022 11:00 Initial 41940 -5 LOINC Pulse 64.0 /min 05/08/2022 12:54 Most Recent 8867- 4 LOINC Pulse 68.0 /min 05/07/2022 11:00 Initial 8867- 4 LOINC Respiration 18 /min 05/08/19 12:54 Most Recent 9279- 1 LOINC Respiration 18 /min 05/07/19 11:00 Initial 9279- 1 LOINC Temperature 36.7 Latisha 98.0 F 05/08/19 12:54 Most Recent 8310- 5 LOINC Temperature 36.5 Latisha 97.7 F 05/07/19 11:00 Initial 8310- 5 [facility] Weight 47.63 kg 105.00 lbs 05/07/2022 11:00 Initial 57211 -7 [facility] Medications Medication Start Date End Date Route Frequency Dose Code Code System Medication Instructions Home Meds Acetaminophen 500MG Oral Capsule 05/08/2022 Unknown ORAL DAILY 1000 MILLIGRAMS 710459 RxNorm TAKE 1000 MILLIGRAMS ORAL DAILY Atorvastatin Calcium 20MG Oral Tablet 05/08/2022 Unknown ORAL AT BEDTIME 20 MILLIGRAMS 407596 RxNorm TAKE 20 MILLIGRAMS ORAL AT BEDTIME Cranberry 500MG Oral Capsule 05/08/2022 Unknown ORAL AT BEDTIME 500 MILLIGRAMS 6192336 RxNorm TAKE 500 MILLIGRAMS ORAL AT BEDTIME Docusate 100MG Oral Capsule, Liquid Filled 05/08/2022 Unknown ORAL TWICE A DAY 100 MILLIGRAMS 9491724 RxNorm TAKE 100 MILLIGRAMS ORAL TWICE A DAY Donepezil HCl 10MG Oral Tablet 05/08/2022 Unknown ORAL DAILY 10 MILLIGRAMS 009805 RxNorm TAKE 10 MILLIGRAMS ORAL DAILY Ibuprofen 200MG Oral Tablet 05/08/2022 Unknown ORAL AT BEDTIME 400 MILLIGRAMS 049725 RxNorm TAKE 400 MILLIGRAMS ORAL AT BEDTIME Lisinopril 10MG Oral Tablet 05/08/2022 Unknown ORAL DAILY 10 MILLIGRAMS 169605 RxNorm TAKE 10 MILLIGRAMS ORAL DAILY Mirtazapine 7.5MG Oral Tablet 05/08/2022 Unknown ORAL AT BEDTIME 7.5 MILLIGRAMS 899661 RxNorm TAKE 7.5 MILLIGRAMS ORAL AT BEDTIME Vitamin B12 1000MCG Oral Tablet 05/08/2022 Unknown ORAL DAILY 1000 MCG 653932 RxNorm TAKE 1000 MCG ORAL DAILY Vitamin C 1000MG Oral Tablet 05/08/2022 Unknown ORAL DAILY 1000 MILLIGRAMS 339815 RxNorm TAKE 1000 MILLIGRAMS ORAL DAILY Vitamin D3 10 MCG Oral Capsule, Liquid Filled 05/08/2022 Unknown ORAL DAILY 10 MCG RxNorm TAKE 10 MCG ORAL DAILY Cefuroxime 250MG Oral Tablet 05/08/2022 Unknown ORAL TWICE A DAY 2 TABLET 805230 RxNorm TAKE 2 TABLET ORAL TWICE A DAY Nitrofurantoin 100MG Oral Capsule 07/25/2022 Unknown ORAL EVERY 12 HOURS 1 CAPSULE 6523099 RxNorm TAKE 1 CAPSULE ORAL EVERY 12 [...] Date Status Code Code System SYNCOPE active 740214076 SNOMED-CT UTI active 10261701 SNOMED-CT CONTUSION OF HEAD, INITIAL ENCOUNTER active 440500562 SNOMED-CT HYPERTENSION 05/07/2022 resolved 40575334 SNOMED -CT URINARY TRACT INFECTION 05/07/2022 resolved 08461 005 SNOMED-CT Allergies and Adverse Reactions Allergy Substance Reaction Severity Start Date Concern Status Co de Code System No Known Drug Allergies Active 548882520 SNOMED-CT Plan of Treatment Plan Discharge home Referral to Urology & PCP local to [place] [facility] for Cefuroxime for further treatment Tylenol/Acetaminophen [...] Date Inactive Da te Discharge Summary Notes [facility] OS 05/08/2022 12:39 All Demographics Patient Name Age Sex Visit Number Admission Date/Time Attending Physician Date of Service Room and Bed Emergency Contact GRACIA RM 1940 81 years Female [id number] 05/07/2022 14:50 BONNIE MCNAMARA 05/07/2022 5 AMRIT RM - [id number] 05/08/2022 12:34 Discharge Date: 05/08/22 Reason for [...] one was 2 months ago while in [place], patient's home. Patient has been unable to [...] Referral to Urology & PCP local to [place] [facility] for Cefuroxime for further treatment Tylenol/Acetaminophen [...] 250MG Oral Tablet History and Physical Notes [facility] OS 05/07/2022 14:29 All Demographics Patient Name Age Sex Visit Number Admission Date/Time Attending Physician Date of Service Room and Bed Emergency Contact GRACIA RM 1940 81 years Female [id number] 05/07/2022 10:55 BONNIE MCNAMARA 05/07/2022 ED-1 AMRIT RM - [id number] 05/07/2022 14:25 Admission Date: Date of Service: [...] apparent distress. SKIN: No rashes. No jaundice. [place] and warm with good turgor. No petechia, [...] 1,000 ML IV SOLN, CONTINUOUS Progress Notes [facility] OS 05/08/2022 12:33 All Demographics Patient Name Age Sex Visit Number Admission Date/Time Attending Physician Date of Service Room and Bed Emergency Contact ANNEMARIEArianaGRACIA 1940 81 years Female [id number] 05/07/2022 14:50 EDIVAN MCNAMARA 05/07/2022 5 SUJEYAMRIT - [id number] 05/08/2022 12:33 Admission date: 05/07/22 Diagnosis: Syncope, [...] was 2 months ago. They live in [place] and have no PCP/urologists here in [place]. Patient would like to go home, agrees [...]
[2024-06-12 16:22] LABS: Appearance Urine Cloudy (Clear); Bilirubin Urine Negative (Negative); Blood Urine Negative (Negative); Color Urine Yellow (Yellow); Glucose Urine Negative (Negative); Ketones Urine Negative (Negative); Leukocyte Esterase Urine 2+ (Negative); Nitrite Urine Negative (Negative); Protein Urine Negative (Negative); Urobilinogen Urine 0.2 (0.2-1.0)
[2024-06-12 16:34] LABS: RBC Urine 0-2 (0-2); WBC Urine >100 (0-5)
--- NOTE | 2024-06-12 16:34 | P.IMHP_ITS ---
Hospitalist- H&P: HPI History of Present Illness Date Seen: 06/12/24 Chief complaint: UTI Narrative: Lashell Morrow is a 83 year old female with a history of vascular dementia and recurrent UTIs with ESBL E coli, who was brought into the emergency room by her daughter for weakness and acting more tired than usual. She was presumed to have a UTI earlier this week at her assisted living facility (unclear if she had a UA or culture performed), treated with fosfomycin on 06/09, but did not seem to improve. No known fevers, does not appear to have any pain, + coughing. There have been cases of COVID in her assisted living facility, patient did test negative with a rapid test earlier this week. ER course and findings: - right sided infiltrate on chest x-ray - positive COVID - No fever or hypoxia - reassuring white blood count, negative procalcitonin - UA + WBC, no bacteriuria, no hematuria, negative nitrite - culture collected, given 1 dose of ertapenem given history Upon arrival to the floor, Lashell is resting comfortably in bed and is not requiring supplemental oxygen. She has limited 1 word answers, specifically denies pain. Daughter at bedside and assists with history taking. Demetrio typically sees patient daily, he is currently on a road trip and unlikely to be home before Sunday. Review of Systems Status of ROS: Reports: unobtainable due to mental status [facility] Medical History (Updated 06/12/24 @ 17:44 by Arely Miranda MD) Vascular dementia ?F01.50 - Vascular dementia, unspecified severity, without behavioral disturbance, psychotic disturbance, mood disturbance, and anxiety (ICD-10) POLST (Physician Orders for Life-Sustaining Treatment) ?Z78.9 - Other specified health status (ICD-10) Frail elderly ?R54 - Age-related physical debility (ICD-10) ESBL (extended spectrum beta-lactamase) producing bacteria infection ?A49.9 - Bacterial infection, unspecified (ICD-10) ?Z16.12 - Extended spectrum beta lactamase (ESBL) resistance (ICD-10) 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 Demetrio visits daily (medical decision maker). [employer] in [place]. DNR/DNI. What is your current living situation?: I presently have a place to live Problems where you live: no known problems Problems where you live details: na In the past 12 months, utilities in danger of being shut off: no In past 12 months, lack of transportation kept you from medical appts, meetings, work, or getting things needed for daily living: no In the past 12 mos, have been you worried that your food would run out before you had money to buy more?: never true In the past 12 mos, the food you bought just didn't last and you didn't have money to buy more?: never true Highest level of school completed/degree received: high school graduate Smoking Status: Former smoker How often do you have a drink containing alcohol: never AUDIT-C Alcohol total score: 0 Non-prescribed substance use: denies use Caffeine: Yes How often does anyone, including family, friends and others, physically hurt you : never How often does anyone, including family, friends and others, insult or talk down to you: never How often does anyone, including family, friends and others, threaten you with harm: never How often does anyone, including family, friends and others, scream or curse at you: never service: No Meds Home Medications and Allergies Home Medications ?Medication ?Instructions ?Recorded ?Confirmed ?Type albuterol sulfate 90 mcg/actuation 1 puff inhalation Q4H PRN 05/05/24 06/12/24 History aerosol inhaler cranberry 500 mg capsule 500 mg PO BID 05/05/24 06/12/24 History estradiol 0.01% (0.1 mg/gram) 1 appful vaginal .2XWEEK 05/05/24 06/12/24 History vaginal cream lisinopril 5 mg tablet 5 mg PO DAILY 05/05/24 06/12/24 History mirtazapine 7.5 mg tablet 7.5 mg PO HS 05/05/24 06/12/24 History Lactobacillus 1 tab PO DAILY 05/06/24 06/12/24 History acidophilus-Lactbacill.bifidus 1 billion cell oral wafer acetaminophen 500 mg capsule 500 mg PO Q4H PRN 05/06/24 06/12/24 History docusate sodium 100 mg capsule 100 mg PO BID 05/06/24 06/12/24 History psyllium (Hydrocil oral powder) 2 tsp PO DAILY 05/06/24 06/12/24 History Allergies Allergy/AdvReac Type Severity Reaction Status Date / Time No Known Allergies Allergy Unknown Unverified 07/30/23 08:32 Exam Narrative: Exam Narrative: GEN: Resting comfortably in bed, nontoxic, no tachypnea HEENT: EOMIs bilaterally, no scleral icterus CV: RRR, No concerning murmurs R: No wheezing, + right-sided rhonchi Skin: No concerning skin lesions or rashes on exposed skin Neuro: No focal deficits on limited exam Psych: Cognitive impairment is evident, no agitation, one-word answers Const: Vital Signs, click to edit/add: Vital Signs - 24 hr 06/12/24 13:53 06/12/24 15:50 06/12/24 15:51 Temperature 98.6 F Pulse Rate 107 H 108 H Pulse Rate [Pulse Oximeter] 102 H Respiratory Rate 20 Blood Pressure 152/106 H Blood Pressure [Ri ght Upper Arm] 125/85 Pulse Oximetry 91 89 92 Oxygen Delivery Me thod Room Air 06/12/24 16:00 06/12/24 16:01 Temperature Pulse Rate 105 H 103 H Pulse Rate [Pulse Oximeter] Respiratory Rate Blood Pressure 147/101 H Blood Pressure [Ri ght Upper Arm] Pulse Oximetry 92 91 Oxygen Delivery Ky thod Hospitalist - H&P: Result Labs Labs: Short CBC 06/12/24 Range/Units 15:21 WBC 7.07 (4.50-11.00) K/uL Hgb 12.5 (12.0-16.0) gm/dL Hct 40.1 (33.0-51.0) % Plt Count 266 (140-440) K/uL [facility] 06/12/24 15:21 Sodium 139 Potassium 4.1 Chloride 106 Carbon Dioxide 25 BUN 25 Creatinine 0.9 Glucose 112 Calcium 9.7 Liver Function 06/12/24 Range/Units 15:21 Total Bilirubin 0.3 (0.1-1.5) mg/dL Direct Bilirubin 0.2 (0.0-0.5) mg/dL AST 15 (12-35) U/L ALT 11 (4-35) U/L Alkaline Phosphatase 71 (40-150) U/L Albumin 4.1 (3.3-5.0) g/dL Urine 06/12/24 Range/Units 16:00 Urine Color Yellow (Yellow) Urine Appearance Cloudy A (Clear) Urine pH 6.0 (5.0-8.5) Ur Specific [place] 1.020 (1.000-1.030) Urine Protein Negative (Negative) Urine Glucose (UA) Negative (Negative) Assessment and Plan Assessment and plan (1) COVID-19: Problem comment: - noted 06/12/24, unclear date of symptom onset - will treat with Paxlovid, confirmed renal dosing with Pharmacist and will cut Remeron dosing in half while on treatment Status: Acute (2) Pneumonia: Problem comment: - R lung, noted on CXR in ER - likely viral 05/25 COVID, reassuring WBC and negative procalcitonin, no hypoxia - given Ertapenem x1 in ED on 06/12, will not continue abx at this time, re- assess status 06/13 Status: Acute (3) ESBL (extended spectrum beta-lactamase) producing bacteria infection: Problem comment: - h/o recurrent ESBL UTIs, treated outpatient with Fosfomycin 06/09/24 - given one dose of Ertapenem on 06/12, urine culture collected and pending Status: Acute (4) Vascular dementia: Problem comment: - no behavior disturbance - resides at [facility] assisted living facility, family has been considering hospice Status: Acute Plan - per above - daughter updated at bedside, updated by phone, questions answered
--- NOTE | 2024-06-12 16:47 | ED.NURSE ---
Pt report given to neal FREDERICK. Pt to room 276.
--- NOTE | 2024-06-12 18:51 | PC.NURSE ---
end of shift. pt has been pleasant but also confused. no pain. daughter was here and was very helpful and loving. SL is patent. Quintanilla was d/c bed alarm is on. she is on covid precauations. 2 assist per ed. 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
[2024-06-12 19:57] LABS: TSH With Reflex to FT4* 0.432 uIU/mL (0.270-4.200)
[2024-06-12] MEDS: DOCUSATE SODIUM 100 MG CAPSULE PO (20:37)
[2024-06-12] MEDS: MIRTAZAPINE 15 MG TABLET 3.75 MG PO (20:38)
[2024-06-12] MEDS: SODIUM CHLORIDE 0.9 % (FLUSH) 10 ML SYRINGE 5 ML IVF (20:40)
[2024-06-13 03:00] VITALS: BP 151/101; PULSE 96; RESP 16; TEMP 37.1; O2SAT 91
--- NOTE | 2024-06-13 06:08 | PC.NURSE ---
Addendum entered by Aiyana Kendrick RN 06/13/24 07:31: Bladder scanned Pt due to no output throughout the night @ 7862. 512 total. Unsuccessful attempt of straight cath. Delegated to OTONIEL Dockery - Day shift nurse. Original Note: End of shift: Pt oriented to self. Was able to respond to yes and no questions. Arousable to name. Pt slept for majority of the shift. SCDs in place. Pt denies pain verbally with no sign of nonverbal distress/pain. Fluids encouraged during repo q2h. Pt appears resting, bed alarm on, call light in reach.
[2024-06-13 06:51] LABS: Basophils Percent Auto 0.8 % (0.0-3.0); Hematocrit 37.6 % (33.0-51.0); Hemoglobin* 12.1 gm/dL (12.0-16.0); Immature Granulocytes Pct Auto 0.5 %; Mean Corpuscular HGB Conc 32 gm/dL (32-36); Mean Corpuscular Hemoglobin 31 pg (26-34); Mean Corpuscular Volume 98 fL (80-100); Monocytes Percent Auto 19.4 % (0.0-11.0); Neutrophils Percent Auto 55.3 % (42.0-72.0); Platelet Count* 246 K/uL (140-440); RDW Coefficient of Variation % 15.1 % (11.5-15.5); Red Blood Count 3.85 m/uL (4.00-5.20); White Blood Count* 3.87 K/uL (4.50-11.00)
[2024-06-13 07:17] LABS: Chloride* 108 mmol/L (96-114)
[2024-06-13 07:18] LABS: Potassium* 3.6 mmol/L (3.6-5.1); Sodium* 141 mmol/L (135-149)
[2024-06-13 07:20] LABS: Creatinine* 0.7 mg/dL (0.5-1.5); Est. Creatinine Clearance* 30.08; Estimated Glomerular Filt Rate 85 ml/min
[2024-06-13 07:21] LABS: Anion Gap 7 mEq/L (7-15); Blood Urea Nitrogen* 22 mg/dL (7-30); Calcium* 9.2 mg/dL (8.4-10.6); Carbon Dioxide* 26 mmol/L (20-32); Glucose* 92 mg/dL (60-115)
[2024-06-13 07:22] LABS: Slide Review Reflex No
[2024-06-13 07:33] LABS: Procalcitonin* 0.07 ng/mL (<0.50)
[2024-06-13 08:48] VITALS: BP 159/109; PULSE 96; RESP 18; TEMP 36.5; O2SAT 88
[2024-06-13] MEDS: SODIUM CHLORIDE 0.9 % (FLUSH) 10 ML SYRINGE 5 ML IVF ×2 (09:00→21:11)
[2024-06-13] MEDS: DOCUSATE SODIUM 100 MG CAPSULE PO ×2 (09:07→21:08)
[2024-06-13] MEDS: lisinopriL 5 MG TABLET PO (09:07)
--- NOTE | 2024-06-13 09:37 | PC.SOCIAL ---
Addendum entered by RANDALL Farah 06/13/24 14:02: Discharge planning: order worker spoke to OTONIEL Dockery at [facility]. She stated that she will be on-call this weekend and for the hospital staff to call #[phone] to complete a nurse to nurse report if the pt is ready for discharge. Signed discharge orders will also need to be faxed to [facility] at fax number #[phone]. [facility] uses [facility], but Naehd shared that if the pt needed to discharge with an antibiotic or another medication that was needed right away, the prescription would need to be sent to a local pharmacy that the family could stop and seed cone picker since [facility] would not be able to fill the medication until Sunday. All of this information was given to the charge nurse on duty. Social work to follow-up as needed. Original Note: Discharge planning: order worker left a message with Marina Knapp, mate fishing vessel at [facility] #[phone], around 9:30am to connect about early discharge planning for the pt. Social work to follow-up as needed.
[2024-06-13 10:51] VITALS: BP 152/111; PULSE 103; RESP 18; O2SAT 91
--- NOTE | 2024-06-13 12:01 | REH.PT ---
Orders for PT Eval and Treat received. Spoke with pts family who reports that pt has assist with all transfers between bed<>w/c at her [facility] and that she is non-ambulatory. Pt able to complete supine<>sit transfer with assist of 1 and complete EZ stand transfers bed<>recliner with good tolerance. Expect pt will be able to return to [facility] with the same level of assist at D/C. No further PT warranted in this environment.
--- NOTE | 2024-06-13 12:25 | REH.OT ---
OT consult orders were received. Pt. lives in memory care facility w/ full care assistance. She is able to follow simple 1 step cues for rote tasks, such and drinking and eating. She needs assistance for all ADLs at baseline and is w/c bound w/ Mod A X2 for transfers. No further OT is needed during this hospitalization, When pt. is medically appropriate, she will be able to return to [facility] w/ full assistance>
--- NOTE | 2024-06-13 12:51 | PM.IMPN1 ---
Progress Note: A&P Assessment and plan (1) COVID-19: Problem details: - noted 06/12/24, unclear date of symptom onset - will treat with Paxlovid, confirmed renal dosing with Pharmacist and will cut Remeron dosing in half while on treatment - PT/OT consulted given acutely worsened weakness. PT reporting no need for ongoing therapies during hospital course Status: Acute (2) Pneumonia: Problem details: - R lung, noted on CXR in ER - likely viral 05/25 COVID, reassuring WBC and negative procalcitonin, BC pending, no hypoxia - given Ertapenem x1 in ED on 06/12, will not continue abx at this time, continue to monitor Status: Acute (3) ESBL (extended spectrum beta-lactamase) producing bacteria infection: Problem details: - h/o recurrent ESBL UTIs, treated outpatient with Fosfomycin 06/09/24 - given one dose of Ertapenem on 06/12, urine culture collected and pending - will defer further antibiotics at this time, monitoring Status: Acute (4) Vascular dementia: Problem details: - no behavior disturbance - resides at [facility] assisted living facility, family has been considering hospice Status: Acute Plan Monitor, BC/UC pending, defer further antibiotics at this time unless new or worsening symptoms. PT has signed off. Plan will be to return to [facility], possibly 1-2 days pending stable hospital course. Time Spent With Patient Total time spent: Today I spent 45 minutes seeing the patient, discussing the patient with ER staff, reviewing Expanse and Epic notes/diagnostics, discussing the care plan with our team that includes social work, PT/OT, pharmacy, RT, alf and documenting my impressions and plan in the medical record. Subjective Date Seen: 06/13/24 Interval history: Patient is seen lying in bed, son at bedside. Has a mild headache this morning but declines analgesics. No dizziness. Remains afebrile. Reports sleeping pretty well. Tolerating orals without nausea vomiting. COVID positive CXR shows faint diffuse interstitial/airspace opacities. No leukocytosis. Procalcitonin 0.07. Afebrile. No hypoxia or dyspnea. UA positive. Historical recurrent UTIs. UC/BC pending. Antibiotics paused, monitoring, awaiting cultures, new or worsening findings. Exam Narrative: Exam Narrative: PHYSICAL EXAM General: Frail, elderly female, pleasant, NAD HEENT: Normocephalic, atraumatic, sclera white, EOMI, oral mucosa moist Cardiovascular: RRR, No pitting edema Pulmonary: CTA bilaterally without rhonchi, rales, expiratory wheezes. No dyspnea on room air Abdominal: Soft, nondistended, NTTP Neurological: Alert, confusion present, chronic Extremities: No gross joint deformity or swelling. AROMI. Neurovascularly intact Skin: Warm, dry. Const: Vital Signs, click to edit/add: Vital Signs - 24 hr 06/12/24 13:53 06/12/24 15:50 06/12/24 15:51 Temperature 98.6 F Pulse Rate 107 H 108 H Pulse Rate [Pulse Oximeter] 102 H Pulse Rate [Right Pulse Oximeter] Respiratory Rate 20 Blood Pressure 152/106 H Blood Pressure [Le ft Arm] Blood Pressure [Ri ght Arm] Blood Pressure [Ri ght Upper Arm] 125/85 Pulse Oximetry 91 89 92 Oxygen Delivery Me thod Room Air 06/12/24 16:00 06/12/24 16:01 06/12/24 16:02 Temperature Pulse Rate 105 H 103 H 98 Pulse Rate [Pulse Oximeter] Pulse Rate [Right Pulse Oximeter] Respiratory Rate Blood Pressure 147/101 H Blood Pressure [Le ft Arm] Blood Pressure [Ri ght Arm] Blood Pressure [Ri ght Upper Arm] Pulse Oximetry 92 91 93 Oxygen Delivery Me thod 06/12/24 16:54 06/12/24 17:05 06/12/24 19:00 Temperature 99.2 F 98.7 F Pulse Rate Pulse Rate [Pulse Oximeter] Pulse Rate [Right Pulse Oximeter] 107 H 102 H Respiratory Rate 18 18 18 Blood Pressure Blood Pressure [Le ft Arm] Blood Pressure [Ri ght Arm] 163/103 H 140/93 H Blood Pressure [Ri ght Upper Arm] Pulse Oximetry 91 91 92 Oxygen Delivery Me thod Room Air Room Air Room Air 06/12/24 23:00 06/12/24 23:00 06/13/24 03:00 Temperature 99.2 F 98.8 F Pulse Rate Pulse Rate [Pulse Oximeter] Pulse Rate [Right Pulse Oximeter] 100 96 Respiratory Rate 18 18 16 Blood Pressure Blood Pressure [Le ft Arm] Blood Pressure [Ri ght Arm] 146/101 H 151/101 H Blood Pressure [Ri ght Upper Arm] Pulse Oximetry 90 90 91 Oxygen Delivery Me thod Room Air Room Air Room Air 06/13/24 08:48 06/13/24 08:48 06/13/24 08:48 Temperature 97.7 F Pulse Rate Pulse Rate [Pulse Oximeter] Pulse Rate [Right Pulse Oximeter] 96 Respiratory Rate 18 18 18 Blood Pressure Blood Pressure [Le ft Arm] 159/109 H Blood Pressure [Ri ght Arm] Blood Pressure [Ri ght Upper Arm] Pulse Oximetry 88 88 Oxygen Delivery Me thod Room Air Room Air 06/13/24 10:51 Temperature Pulse Rate Pulse Rate [Pulse Oximeter] Pulse Rate [Right Pulse Oximeter] 103 H Respiratory Rate 18 Blood Pressure Blood Pressure [Le ft Arm] 152/111 H Blood Pressure [Ri ght Arm] Blood Pressure [Ri ght Upper Arm] Pulse Oximetry 91 Oxygen Delivery Me thod Room Air Labs Labs: Laboratory Results - last 24 hr 06/12/24 06/12/24 06/12/24 14:48 15:21 16:00 WBC 7.07 RBC 4.10 Hgb 12.5 Hct 40.1 MCV 98 MCH 31 MCHC 31 L RDW Coeff of Aurelio 15.0 Plt Count 266 Neut % (Auto) 83.6 H Lymph % (Auto) 8.8 L Hendricks % (Auto) 7.1 Eos % (Auto) 0.0 Baso % (Auto) 0.1 Neut # (Auto) 5.90 Lymph # (Auto) 0.60 L Hendricks # (Auto) 0.50 Eos # (Auto) 0.00 Baso # (Auto) 0.01 Abs Immat Gran (auto) 0.03 Imm/Tot Granulo (auto) 0.4 Sodium 139 Potassium 4.1 Chloride 106 Carbon Dioxide 25 Anion Gap 8 BUN 25 Creatinine 0.9 Estimated Creat Clear Estimated GFR 63 Glucose 112 Calcium 9.7 Total Bilirubin 0.3 Direct Bilirubin 0.2 AST 15 ALT 11 Alkaline Phosphatase 71 C-Reactive Protein 0.9 Total Protein 6.9 Albumin 4.1 Procalcitonin 0.06 TSH 0.432 Urine Color Yellow Urine Appearance Cloudy A Urine pH 6.0 Ur Specific [place] 1.020 Urine Protein Negative Urine Glucose (UA) Negative Urine Ketones Negative Urine Blood Negative Urine Nitrite Negative Urine Bilirubin Negative Urine Urobilinogen 0.2 Ur Leukocyte Esterase 2+ A Urine RBC 0-2 Urine WBC >100 A Ur Squamous Epith Cells None Urine Bacteria None SARS-CoV-2 (PCR) POSITIVE SARS-CoV-2 A Influenza Type A (PCR) Negative PCR FLU A Influenza Type B (PCR) Negative PCR FLU B RSV (PCR) Negative PCR RSV POC Troponin I 0.01 06/13/24 06:23 WBC 3.87 L RBC 3.85 L Hgb 12.1 Hct 37.6 MCV 98 MCH 31 MCHC 32 RDW Coeff of Aurelio 15.1 Plt Count 246 Neut % (Auto) 55.3 Lymph % (Auto) 24.0 Hendricks % (Auto) 19.4 H Eos % (Auto) 0.0 Baso % (Auto) 0.8 Neut # (Auto) 2.10 Lymph # (Auto) 0.90 Hendricks # (Auto) 0.80 Eos # (Auto) 0.00 Baso # (Auto) 0.00 Abs Immat Gran (auto) 0.00 Imm/Tot Granulo (auto) 0.5 Sodium 141 Potassium 3.6 Chloride 108 Carbon Dioxide 26 Anion Gap 7 BUN 22 Creatinine 0.7 Estimated Creat Clear 30.08 Estimated GFR 85 Glucose 92 Calcium 9.2 Total Bilirubin Direct Bilirubin AST ALT Alkaline Phosphatase C-Reactive Protein Total Protein Albumin Procalcitonin 0.07 TSH Urine Color Urine Appearance Urine pH Ur Specific [place] Urine Protein Urine Glucose (UA) Urine Ketones Urine Blood Urine Nitrite Urine Bilirubin Urine Urobilinogen Ur Leukocyte Esterase Urine RBC Urine WBC Ur Squamous Epith Cells Urine Bacteria SARS-CoV-2 (PCR) Influenza Type A (PCR) Influenza Type B (PCR) RSV (PCR) POC Troponin I
[2024-06-13 16:13] VITALS: BP 151/114; PULSE 92; PULSE 93; RESP 18; TEMP 36.5; O2SAT 93
--- NOTE | 2024-06-13 18:34 | PC.NURSE ---
Addendum entered by Nahed Silvestre RN 06/13/24 19:05: No further u/o this shift. Bladder scan at 1800 shows 250ml after attempt on BSC. Reported off to oncoming nurse. Original Note: Nursing Care Hours: [id number] Pt this shift calm and cooperative. Oriented to self. No c/o pain. Skin intact. NOC nurse unsuccessful at straight cath at shift change. Bladder scan at 0930 showed 550ml retained after attempting to use BSC. Straight cath using sterile technique with 600ml drained. Attempt to use Taylor steady but pt leaning backwards too far to get butt pads underneath. EZ stand tolerated better to get in and out of chair. Up in chair most of shift. Stable spo2 on RA, HTN noted, afebrile. Declined breakfast, did not eat the lunch that was ordered but is eating dinner with pt family assist at bedside. Moist cough intermittent throughout the day.
[2024-06-13 19:00] VITALS: BP 159/108; PULSE 97; RESP 20; TEMP 36.5; O2SAT 93
[2024-06-13] MEDS: MIRTAZAPINE 15 MG TABLET 3.75 MG PO (21:08)
[2024-06-13] MEDS: ENOXAPARIN 30 MG/0.3ML INJ SUBCUT (21:10)
[2024-06-13 23:00] VITALS: BP 151/109; PULSE 95; RESP 18; TEMP 36.7; O2SAT 92
[2024-06-14 03:00] VITALS: BP 152/109; PULSE 98; RESP 17; TEMP 36.5; O2SAT 90
[2024-06-14 06:43] LABS: Hematocrit 39.1 % (33.0-51.0); Hemoglobin* 12.5 gm/dL (12.0-16.0); Mean Corpuscular HGB Conc 32 gm/dL (32-36); Mean Corpuscular Hemoglobin 31 pg (26-34); Mean Corpuscular Volume 97 fL (80-100); Platelet Count* 237 K/uL (140-440); Red Blood Count 4.02 m/uL (4.00-5.20); White Blood Count* 3.84 K/uL (4.50-11.00)
[2024-06-14 06:59] LABS: Slide Review Reflex No
[2024-06-14 07:16] LABS: Chloride* 104 mmol/L (96-114); Sodium* 136 mmol/L (135-149)
[2024-06-14 07:17] LABS: Potassium* 3.6 mmol/L (3.6-5.1)
[2024-06-14 07:20] LABS: Blood Urea Nitrogen* 22 mg/dL (7-30); Calcium* 9.2 mg/dL (8.4-10.6); Creatinine* 0.7 mg/dL (0.5-1.5); Est. Creatinine Clearance* 30.08; Estimated Glomerular Filt Rate 85 ml/min; Glucose* 86 mg/dL (60-115)
[2024-06-14 07:36] LABS: Anion Gap 7 mEq/L (7-15); Carbon Dioxide* 25 mmol/L (20-32)
--- NOTE | 2024-06-14 07:41 | PC.NURSE ---
Shift note ([id number]): Patient pleasant and cooperative with cares. Transferred with easy-lift. Large incontinent void at 2315; has otherwise been dry. Denied pain. Dr Barlow updated regarding continued elevated BPs. Per MD no new orders at this time.?
[2024-06-14 08:30] VITALS: RESP 20; O2SAT 90
[2024-06-14] MEDS: DOCUSATE SODIUM 100 MG CAPSULE PO (08:51)
[2024-06-14] MEDS: lisinopriL 5 MG TABLET PO (08:51)
[2024-06-14] MEDS: SODIUM CHLORIDE 0.9 % (FLUSH) 10 ML SYRINGE 5 ML IVF (08:52)
[2024-06-14 08:54] VITALS: BP 161/112; PULSE 99; RESP 18; TEMP 36.6; O2SAT 91
[2024-06-14 11:00] VITALS: PULSE 94; RESP 18; TEMP 36.7; O2SAT 92
[2024-06-14 14:00] VITALS: BP 147/101; PULSE 98; RESP 18; TEMP 36.7
--- NOTE | 2024-06-14 14:50 | PC.NURSE ---
Pt denies pain, able to eat breakfast w/o N/V, remains of RA with sats in low 90's. Pt is incontinent at baseline, changed as needed. IV DC'd, cath tip intact. Information given to son Jalen at time of DC. Jalen transport pt back to [place] to return to prior living situtation @1330.
--- NOTE | 2024-06-14 15:18 | P.DS_ITS ---
DS: Providers Provider Date Seen: 06/14/24 Date of admission: 06/13/24 16:19 Primary care physician: Not a Local Provider Admitting Clinician: Arely Miranda MD Consults: 06/12/24 17:06 Consult to Physical Therapy [CONS] Routine Comment: Reason(s) for PT Consult:: Evaluate and Treat Any Restrictions?:: No Restrictions Consult to [place] [CONS] Routine Comment: Reason for Consult:: Discharge Planning Needs 06/12/24 17:08 Consult to Occupational Therapy [CONS] Routine Comment: Reason(s) for OT Consult:: Evaluate and Treat Any Restrictions?:: No Restrictions Attending Physician on discharge: Arely Miranda MD Date of Discharge: 06/14/24 DS: Diagnosis Discharge Diagnosis (1) COVID-19: Status: Acute Problem details: - noted 06/12/24, unclear date of symptom onset - will treat with Paxlovid, confirmed renal dosing with Pharmacist and will cut Remeron dosing in half while on treatment - PT/OT consulted given acutely worsened weakness. PT reporting no need for ongoing therapies during hospital course (2) Pneumonia: Status: Acute Problem details: - R lung, noted on CXR in ER - likely viral 05/25 COVID, reassuring WBC and negative procalcitonin, blood culture negative to date. no hypoxia - given Ertapenem x1 in ED on 06/12, will not continue abx at this time, continue to monitor (3) ESBL (extended spectrum beta-lactamase) producing bacteria infection: Status: Acute Problem details: - h/o recurrent ESBL UTIs, treated outpatient with Fosfomycin 06/09/24 - given one dose of Ertapenem on 06/12, urine culture negative (4) Vascular dementia: Status: Acute Problem details: - no behavior disturbance - resides at [facility] assisted [facility] facility, family has been considering hospice DS: Summary Hospital Course Hospital Course: FINAL DIAGNOSIS/FOLLOW UP ISSUES: 1. COVID 19 - treated for weakness and possible pneumonia. Received paxlovid. Received inpatient OT and PT. no hypoxia. Patient was discharged back to [facility] care on 06/14. 2. History of ESBL UTI-urine culture negative here. BRIEF HOSPITAL COURSE: Patient was admitted for 2 days. Synopsis of acute inpatient issues are outlined above. Chronic medical conditions with notable findings outlined above. Lashell did well and responded quickly to the paxlovid. Her weakness secondary to COVID resolved and she was back to baseline. She had no hypoxia. Her UA culture was negative. She was eating and her strength was to baseline on 06/14. She returned to memory care and will finish her paxlovid there. DISCHARGE MEDICATIONS: See Reconciled list - SIGNIFICANT CHANGES: Paxlovid, 2 and half more days Specific instructions to the patient and follow-up are outlined below. REVIEW OF SYSTEMS No new chest pain or dyspnea Pain controlled No voiding difficulties Tolerating diet challenge PHYSICAL EXAM: CONSTITUTIONAL: Alert, answers questions. Flat affect. GENERAL: Frail elderly in no respiratory distress. VITAL SIGNS: see record. HEENT: Sclerae are anicteric. No petechiae. CARDIAC: rhythm is regular. There is no S3 or rub. No harsh murmurs. Extremities show trace edema with symmetrical pulses. PULM: good air entry with no wheeze. NEURO: Speech is fluent. A brief neurologic exam is negative. SKIN: No rashes, petechiae, concerning changes PSYCHIATRIC: Euthymic. DISPOSITION: Memory care with son. Time spent on discharge 37 minutes. Status at Discharge Functional status at discharge: uses cane/walker Overall status at discharge: patient is progressing back to baseline Time Spent with Patient Time attestation: Total time spent providing and/or coordinating discharge services: Exam Const: Vital Signs, click to edit/add: Vital Signs - 24 hr 06/13/24 16:13 06/13/24 16:13 06/13/24 16:13 Temperature 97.7 F Pulse Rate [Right Pulse Oximeter] 93 92 Respiratory Rate 18 18 18 Blood Pressure [Le ft Arm] Blood Pressure [Ri ght Arm] 151/114 H Pulse Oximetry 93 93 Oxygen Delivery Me thod Room Air Room Air 06/13/24 19:00 06/13/24 23:00 06/13/24 23:00 Temperature 97.7 F 98.0 F Pulse Rate [Right Pulse Oximeter] 97 95 Respiratory Rate 20 18 18 Blood Pressure [Le ft Arm] 159/108 H 151/109 H Blood Pressure [Ri ght Arm] Pulse Oximetry 93 92 92 Oxygen Delivery Me thod Room Air Room Air Room Air 06/14/24 03:00 06/14/24 08:30 06/14/24 08:54 Temperature 97.7 F Pulse Rate [Right Pulse Oximeter] 98 99 Respiratory Rate 17 20 18 Blood Pressure [Le ft Arm] 152/109 H Blood Pressure [Ri ght Arm] Pulse Oximetry 90 90 Oxygen Delivery Me thod Room Air Room Air 06/14/24 08:54 06/14/24 08:54 06/14/24 11:00 Temperature 97.9 F 98.1 F Pulse Rate [Right Pulse Oximeter] 99 94 Respiratory Rate 18 18 18 Blood Pressure [Le ft Arm] 161/112 H Blood Pressure [Ri ght Arm] Pulse Oximetry 91 91 92 Oxygen Delivery Me thod Room Air Room Air Room Air DS: Data Data Completed and Pending Labs on day of discharge: Labs from last 24 hours 06/14/24 06:16 WBC 3.84 L RBC 4.02 Hgb 12.5 Hct 39.1 MCV 97 MCH 31 MCHC 32 Plt Count 237 Sodium 136 Potassium 3.6 Chloride 104 Carbon Dioxide 25 Anion Gap 7 BUN 22 Creatinine 0.7 Estimated Creat Clear 30.08 Estimated GFR 85 Glucose 86 Calcium 9.2 Preliminary micro results at discharge 06/12/24 15:32 Blood Culture - Preliminary Blood NO GROWTH AFTER 24 HOURS Discharge Plan Discharge Disposition: [facility] Date of Admission: 06/13/24 16:19 Attending Provider on Discharge: Precious Cardoza Primary Care Provider: Provider,Not a Local Discharge Medications: New Paxlovid 150-100 mg Tablets,Dose Pack 2 ea PO BID Qty: 5 0RF Rx Instructions: Please finish the course from the supply brought to the hospital. Continued albuterol sulfate 90 mcg/actuation HFA aerosol inhaler 1 puff inhalation Q4H PRN cranberry 500 mg capsule 500 mg PO BID Rx Instructions: administer with a meal lisinopril 5 mg tablet 5 mg PO DAILY estradiol 0.01 % (0.1 mg/gram) cream 1 appful vaginal .2XWEEK mirtazapine 7.5 mg tablet 7.5 mg PO HS acetaminophen 500 mg capsule 500 mg PO Q4H PRN docusate sodium 100 mg capsule 100 mg PO BID Lactobacillus acidoph-L. bifid 1 billion cell wafer 1 tab PO DAILY Rx Instructions: administer (preferably) with milk Hydrocil Powder 2 tsp PO DAILY Rx Instructions: mix into at least 4 oz water or juice before administering Discharge Orders: Discharge Order (Routine); Ordered 06/14/24 Ordered By: Precious Cardoza Additional Instructions: She is back to baseline status. She has 2.5 days left of the paxlovid (a dose pm of 06/14 and then BID on 06/15 and 06/16). Recommend relative isolation thru the day on the 06/16. Activity Level: Activity as Tolerated Discharge Diet: Regular Follow Up Appointments: Provider,Not a Local [Primary Care Provider] - Forms: [facility] Instructions Admit to: Assisted Living Discharge Potential: Fair Length of Stay: >90 days Can use facility standing orders?: Yes Code Status: DNR/DNI Oxygen: No Urinary Catheter: No Orders are good >30 days: Yes
== END 2024-06-14 13:30 | DRG 177 ==
LOC: ED 16:12 → MEDSURG 16:35
PROVIDERS: Physician Assistant; Admitting Provider Family Medicine; Emergency Provider Emergency Medicine; Visit Provider Family Medicine
DX: U07.1 COVID-19 (principal); J12.82 Pneumonia due to coronavirus disease 2019; Z16.12 Extended spectrum beta lactamase (ESBL) resistance; F01.50 Vascular dementia, unspecified severity, without behavioral disturbance, psychotic disturbance, mood disturbance, and anxiety; I10 Essential (primary) hypertension; E78.5 Hyperlipidemia, unspecified; J44.9 Chronic obstructive pulmonary disease, unspecified; Z87.440 Personal history of urinary (tract) infections
CPT/HCPCS: 36415; 51702; 51798; 71045; 80048; 80076; 81001; 84145; 84443; 84484; 85025; 85027; 86140; 87040; 87086; 87631; 93005; 99284; A9270; G0378; J1335; J1650; J7030